=== PATIENT | female | born 1990 | race Caucasian/White ===

== ENCOUNTER 2016-10-26 17:56 | Outpatient (CLI) | payer MEDICAID ==
[2016-10-26 18:55] LABS: APPEARANCE,URINE SLIGHTLY-CLOUDY; BILIRUBIN,URINE NEGATIVE (NEGATIVE); GLUCOSE, URINE NEGATIVE (NEGATIVE); KETONES,URINE NEGATIVE (NEGATIVE); LEUKOCYTE ESTERASE,URINE SMALL (NEGATIVE); NITRITE,URINE NEGATIVE (NEGATIVE); PROTEIN,URINE NEGATIVE (NEGATIVE); URINE SPECIFIC GRAVITY 1.028; UROBILINOGEN,URINE NEGATIVE mg/dL (<2.0)
[2016-10-26] MEDS ORDERED: OXYCODONE-ACETAMINOPHEN 5-325 MG TABLET PO ONE (18:58)
[2016-10-26] MEDS ORDERED: OXYCODONE-ACETAMINOPHEN 5-325 MG TABLET ONE (19:00)
[2016-10-26 19:10] LABS: URINE BARBITURATES SCREEN NEGATIVE; URINE METHADONE SCREEN NEGATIVE; URINE PHENCYCLIDINE SCREEN NEGATIVE
--- NOTE | 2016-10-26 19:59 | Non Stress Test Report ---
Non Stress Test Datetime Report Generated by CPN: 10/26/2016 19:59 DEMOGRAPHIC Test Number: 1 EGA NST: 38.1 EGA NST: 36.1 INDICATION Indication for Study: Ordered by Provider Indication for Study: Other Indication for Study (NST) Other: lower abdominal pain, 36.1wk IUP VITAL SIGNS Temperature - NST: 97.8 Pulse - NST: 71 RESP - NST: 18 NBPSYS NST: 97 NBPDIA NST: 52 MONITORING Monitor Explained: Monitor Explained; Test Explained; Patient Verbalized Understanding Monitor Explained: Monitor Explained; Test Explained; Patient Verbalized Understanding Time on Monitor: 10/26/2016 18:20 Time on Monitor: 10/12/2016 10:50 Time off Monitor: 10/26/2016 19:40 Time off Monitor: 10/12/2016 11:20 NST Duration: 80 NST Duration: 30 NST INTERVENTIONS NST Interventions: PO Hydration NST Interventions: None Physician Notified NST: HULL Physician Notified NST: Christy Zavaleta CNM BABY A: [id number] BABY A Movement : Present Movement : Present Contraction Frequency : irritability Contraction Frequency : 7-10 minutes FHR Baseline : 120 FHR Baseline : 125 Accelerations : 15X15 Accelerations : 15X15 Decelerations : None Decelerations : None Variability : Moderate 6-25bpm Variability : Moderate 6-25bpm NST Review: Meets Criteria for Reactive NST NST Review: Meets Criteria for Reactive NST NST Review and Verified By : Geovany Horton RN NST Review and Verified By : Nicole Red RN NST Results: Reactive NST Results: Reactive NST REPORT Report Trigger: Send Report
--- NOTE | 2016-10-27 04:46 | Antepartum Discharge Summary ---
Antepartum DC Datetime Report Generated by CPN: 10/27/2016 04:45 DIET/ACTIVITY/RESTRICTIONS Diet: Regular (10/26/2016 19:40:Evie Errichiello, RN) Activity: Normal Activity (10/26/2016 19:40:Evie Errichiello, RN) TEACHING/INSTRUCTIONS/REFERRALS Instructions Given To: pt (10/26/2016 19:40:Evie Errichiello, RN) Instructions Understood: Patient Verbalized Understanding (10/26/2016 19:40:Evie Patel RN) Educational Materials- Other: The Labor Process, back pain (10/26/2016 19:40:Evie Patel RN) DISCHARGE INFORMATION Discharged AMA: No (10/26/2016 19:40:Evie Patel RN) Discharge Date/Time: 10/26/2016 19:50 (10/26/2016 19:40:Evie Patel RN) Discharged To: Home (10/26/2016 19:40:Evie Patel RN) Discharge Provider Name: Dr Rae (10/26/2016 19:40:Evie Patel RN) Accompanied By: n/a (10/26/2016 19:40:Evie Patel RN) Discharge Method: Ambulatory (10/26/2016 19:40:Evie Patel RN) Condition: Stable (10/26/2016 19:40:Evie Patel RN) FOLLOW UP INFORMATION Follow Up With: [facility] (10/26/2016 19:40:Evie Patel RN) Follow Up On: As Scheduled (10/26/2016 19:40:Evie Patel RN) Follow Up Phone Number: [facility] - (10/26/2016 19:40:Evie Patel RN) Comments: Pt came to LD as LC, pt experiencing back pain while on unit, Percocet PO given. Pain relieved as per pt. Discharge insturctions given for the labor process and back pain relief measures explained by this RN. Pt verbalized understanding and demonstrated understanding. Pt d/c off unit via ambulation in stable condition. (10/26/2016 19:40:Evie Patel RN)
--- NOTE | 2016-10-27 04:46 | L&D Flow Sheet ---
LD Flowsheet Datetime Report Generated by CPN: 10/27/2016 04:45 Datetime: 10/26/2016 19:45 Communication Communication: Call/Page Placed to Provider (Annotations: Call placed to Dr Are to confirm d/c order. Per MD, pt OK to go home if pain relieved by PO Percocet. Orders carried out. ) (Evie Errichiello, RN) Datetime: 10/26/2016 19:30 Vital Signs Stage of : Antepartum (Evie Errichiello, RN) Uterine Activity Monitor Mode: External (Evie Errichiello, RN) Frequency (min): n/a (Evie Catherineichiello, RN) Quality: Mild (Evie Errichiello, RN) Resting Tone (Palpate): Relaxed (Evie Errichiello, RN) Assessment A Monitor Mode: External US (Evie Patel RN) FHR Baseline Rate : 150 (Evie Patel RN) FHR Baseline Changes: No Baseline Change (Evie Patel, RN) Variability: Moderate 6-25 bpm (Evie Patel, RN) Accelerations: 15X15 (Evie Patel RN) Decelerations: None (Evie Patel RN) Pain Presence: None/Denies (Evie Patel, RN) Patient Care Patient Position/Activity: Left Tilt; Semi-Fowlers (Evie Patel, ECTOR) Communication Communication: RN at Bedside; RN Reviewed Strip (Evie Patel RN) LaborFlag: Antepartum (QS system process) Datetime: 10/26/2016 19:25 I/O Interventions: Up to BR (Evie Errichiello, RN) Datetime: 10/26/2016 19:08 I/O Interventions: Clear Liquids Given (Thierno Elysia, RN) Datetime: 10/26/2016 19:07 Communication Comments: Report to K Fore RN care relinquished at this time (Thierno Elysia, RN) Datetime: 10/26/2016 19:05 NBP Sys/Tasia/Mean (mmHg): 102 (QS system process) : 51 (QS system process) : 73 (QS system process) Pulse: 71 (QS system process) LaborFlag: Antepartum (QS system process) Datetime: 10/26/2016 19:03 Monitor Interventions for FHR: Ultrasound Adjusted (Thierno Elysia, RN) Medications Medication Comments: Percocet 2 tabs PO as ordered (Thierno Elysia, RN) Datetime: 10/26/2016 18:54 Communication Communication: Provider Orders Received (Thierno Naidu RN) Notification Reason: Status Update; Status; Labor Status; Membrane Status; Uterine Activity; Pain; Lab/Diagnostic Study (Thierno Naidu RN) Communication Comments: Dr Rae called and notifed of pt complaint, pain, vs, efm strip, reactive NST, uterine irritability with back pain, and Urine results. Orders to give pt 2 percocet now, monitor pt to see if pain gets relieved, then discharge patient home, and continue to PO hydrate. (Thierno Naidu RN) Datetime: 10/26/2016 18:28 Vaginal Bleeding: None (Thierno Quachfleet, RN) Montano's Score Dilatation (cm): 1-2 cm (Thierno Elysia, RN) Effacement: 0-30_ effaced (Thierno Elysia, RN) Station: minus 2 (Thierno Elysia, RN) Consistency: Firm (Thierno Elysia, RN) Position: Posterior (Thierno Elysia, RN) Total Montano's Score: 2 (QS system process) : 0-4 = Unfavorable cervix (QS system process) Maternal Assessment Level of Consciousness: Fully Conscious (Thierno Elysia, RN) DTR's/Clonus: DTRs 1+; No Clonus (Thierno Elysia, RN) Headache: Denies (Thierno Elysia, RN) Breath Sounds, Left: Clear and Equal (Thierno Elysia, RN) Breath Sounds, Right: Clear and Equal (Thierno Naidu RN) Nausea/Vomiting: Denies (Thierno Naidu RN) RUQ Epigastric Pain: Denies (Thierno Naidu RN) Patient Care Patient Position/Activity: Left Lateral (Thierno Naidu RN) Comfort Measures: Family Support (Thierno Naidu RN) Teaching Instructional Method: Demo; Verbal; Patient Instructed; Family/Support Person Instructed; Verbalized Understanding (Thierno Naidu RN) Plan of Care: Plan of Care Discussed (Thierno Naidu RN) Unit Routine: [place] to Room; Call [place]; Bed; Waiting Areas; Phone/Cell Phone Use; Unit Personnel; Handwashing; Flu/Illness Precautions; Monitoring; Safety/Fall Risk Prevention; Bathroom Privileges (Thierno Naidu RN) Labor/Induction: Labor Stages (Thierno Naidu RN) Pain Management: Pain Scale/Goals; Comfort Measures (Thierno Naidu RN) Related: Common Discomforts of ; Maternal Physical Changes; Maternal Emotional Changes; Nutrition; Hydration; Activity and Rest (Thierno Naidu RN) Datetime: 10/26/2016 18:26 Vaginal Exam Dilatation (cm): 1.0 (Thierno Naidu RN) Effacement (%): 20 (Thierno Naidu RN) Station: -2 (Thierno Naidu RN) Exam by: Ridge Naidu RN (Thierno Naidu RN) Vaginal Bleeding: None (Thierno Naidu RN) Cervix, Consistency: Firm (Thierno Naidu RN) Cervix, Position: Posterior (Thierno Naidu RN) Communication Communication: RN at Bedside; RN Reviewed Strip (Thierno Quachmanish RN) Datetime: 10/26/2016 18:23 Monitor Interventions for UA: [place] Adjusted (Thierno Naidu RN) I/O Interventions: Popsicle; Clear Liquids Given (Thierno Naidu RN) Patient Care Comments: Pt instructed to PO hydrate x1 pitcher of water now. (Thierno Naidu RN) Datetime: 10/26/2016 18:19 NBP Sys/Tasia/Mean (mmHg): 94 (QS system process) : 55 (QS system process) : 71 (QS system process) Pulse: 64 (QS system process) LaborFlag: Antepartum (QS system process) Datetime: 10/26/2016 18:17 Pain Pain Scale: 5 (Thierno Naidu RN) Pain Presence: Intermittent (Thierno Naidu RN) Pain Type: Ache (Thierno Naidu RN) Pain Location: Back (Thierno Naidu RN) Pain Relief Measures: Comfort Measures (Thierno Naidu RN) Pain Coping: Breathing Through Contractions (Thierno Naidu RN) Comfort Measures: Breathing/Relaxation; Family Support (Thierno Naidu RN) Communication Comments: Pt states she smoked SPIN[employer]ING [employer] PERSON. (Thierno Naidu RN) LaborFlag: Antepartum (QS system process)
--- NOTE | 2016-10-27 04:46 | L&D Current Admission ---
Current Admit Datetime Report Generated by CPN: 10/27/2016 04:45 ADMISSION INFORMATION Chief Complaint: Pt was seen at [facility] today; pt states her cervix was checked then her back pain started and has been intermittent all day today. (10/26/2016 18:28:Thierno Naidu RN) Chief Complaint: Uterine Cramping (10/12/2016 10:55:Yenny Rosenthal RN)
--- NOTE | 2016-10-27 04:46 | L&D Admission Assessment ---
LD ADM ASMT Datetime Report Generated by CPN: 10/27/2016 04:45 PATIENT ASSESSMENT Assessment Type: Admission Assessment (10/26/2016 18:28:Thierno Naidu, RN) WEIGHT Weight (lb): 196 (10/26/2016 18:43:QS system process) Weight (kg): 89.1 (10/26/2016 18:43:QS system process) Total Wt Gain (lb): -14 (10/26/2016 18:43:QS system process) Wt Gain (kg): -6.5 (10/26/2016 18:43:QS system process) BMI: 28.9 (10/26/2016 18:43:QS system process) PAIN Pain Scale: 5 (10/26/2016 18:17:Thierno Naidu RN) Pain Presence: None/Denies (10/26/2016 19:30:Evie Patel RN) Pain Presence: Intermittent (10/26/2016 18:17:Thierno Naidu RN) Pain Type: Ache (10/26/2016 18:17:Thierno Naidu RN) Pain Location: Back (10/26/2016 18:17:Thierno Naidu RN) CONTRACTIONS Frequency (min): n/a (10/26/2016 19:30:Evie Patel RN) Quality: Mild (10/26/2016 19:30:Evie Patel RN) Resting Tone [place]: Relaxed (10/26/2016 19:30:Evie Patel RN) VAGINAL EXAM Dilatation (cm): 1.0 (10/26/2016 18:26:Thierno Naidu RN) Effacement (%): 20 (10/26/2016 18:26:Thierno Naidu RN) Station: -2 (10/26/2016 18:26:Thierno Naidu RN) MORALES'S SCORE Morales's Score Dilatation (cm): 1-2 cm (10/26/2016 18:28:Thierno Naidu RN) Morales's Score Effacement (%): 0-30_ effaced (10/26/2016 18:28:Thierno Naidu RN) Morales's Score Station: minus 2 (10/26/2016 18:28:Thierno Naidu RN) Morales's Score Consistency: Firm (10/26/2016 18:28:Thierno Naidu RN) Morales's Score Position: Posterior (10/26/2016 18:28:Thierno Naidu RN) Total Morales's Score: 2 (10/26/2016 18:28:QS system process) Morales's Score Text: 0-4 = Unfavorable cervix (10/26/2016 18:28:QS system process) NEURO Level of Consciousness: Fully Conscious (10/26/2016 18:28:Thierno Elysia, RN) DTR's/Clonus: DTRs 1+; No Clonus (10/26/2016 18:28:Thierno Arcoseet, RN) Headache: Denies (10/26/2016 18:28:Thierno Elysia, RN) Dizziness: No (10/26/2016 18:28:Thierno Elysia, RN) Blurred Vision: No (10/26/2016 18:28:Thierno Elysia, RN) Extremity Numbness/Tingling : None (10/26/2016 18:28:Thierno Elysia, RN) Extremity Movement: Full Range of Motion (10/26/2016 18:28:Thierno Elysia, RN) CARDIOVASCULAR Heart Rhythm: Regular (10/26/2016 18:28:Thierno Elysia, RN) Nailbeds: [place] (10/26/2016 18:28:Thierno Naidu RN) Capillary Refill: Less than 3 Seconds (10/26/2016 18:28:Thierno Naidu RN) Lower Extremities Edema: None (10/26/2016 18:28:Thierno Naidu RN) Lower Extremities Edema Degree: None (10/26/2016 18:28:Thierno Naidu RN) Upper Extremities Edema: None (10/26/2016 18:28:Thierno Naidu RN) Upper Extremities Edema Degree: None (10/26/2016 18:28:Thierno Naidu RN) Facial Edema: None (10/26/2016 18:28:Thierno Naidu RN) Piero's Sign Left Leg: Negative (10/26/2016 18:28:Thierno Naidu RN) Piero's Sign Right Leg: Negative (10/26/2016 18:28:Thierno Naidu RN) DVT RISK ASSESSMENT DVT Risk Age: Age less than 41 years (10/26/2016 18:28:Thierno Naidu RN) DVT Risk BMI: BMI 31 to 40 (10/26/2016 18:28:Thierno Naidu RN) DVT Risk Surgery: None Applicable (10/26/2016 18:28:Thierno Naidu RN) DVT Risk Other: Women Only- or (<1 month) (10/26/2016 18:28:Thierno Naidu RN) DVT Risk Total: 2 (10/26/2016 18:28:QS system process) DVT Risk Text: Moderate Risk (10-20%) - Consider stockings, compresssion device, pharmacological therapy per hospital policy (10/26/2016 18:28:QS system process) RESPIRATORY Respiratory Effort: Unlabored; Regular Rhythm; Equal Expansion (10/26/2016 18:28:Thierno Naidu RN) Breath Sounds, Left: Clear and Equal (10/26/2016 18:28:Thierno Naidu RN) Breath Sounds, Right: Clear and Equal (10/26/2016 18:28:Thierno Naidu RN) Cough Productivity: None (10/26/2016 18:28:Thierno Naidu RN) GASTROINTESTINAL Nausea/Vomiting: Denies (10/26/2016 18:28:Thierno Naidu RN) Bowel Sounds: Normoactive (10/26/2016 18:28:Thierno Naidu RN) RUQ Epigastric Pain: Denies (10/26/2016 18:28:Thierno Naidu RN) Bowel Patterns: Soft, Formed Stool (10/26/2016 18:28:Thierno Naidu RN) Hemorrhoids: None (10/26/2016 18:28:Thierno Naidu RN) Diet Type: Regular diet (10/26/2016 18:28:Thierno Naidu RN) Last Meal: 10/26/2016 12:00 (10/26/2016 18:28:Thierno Naidu RN) GENITOURINARY Bladder: Nondistended (10/26/2016 18:28:Thierno Naidu RN) Frequency of Urination: No (10/26/2016 18:28:Thierno Niadu RN) Urination Burning: No (10/26/2016 18:28:Thierno Naidu RN) CVA Tenderness: No (10/26/2016 18:28:Thierno Naidu RN) Vaginal Bleeding: None (10/26/2016 18:28:Thierno Naidu RN) Vaginal Discharge Amount: None (10/26/2016 18:28:Thierno Naidu RN) Vaginal Discharge Color: N/A (10/26/2016 18:28:Thierno Naidu RN) Vaginal Discharge Odor: Non-Odorous (10/26/2016 18:28:Thierno Naidu RN) Vaginal Discharge Character: None (10/26/2016 18:28:Thierno Naidu RN) INTEGUMENTARY Skin Color: Normal for Race (10/26/2016 18:28:Thierno Naidu RN) Skin Temperature: Warm (10/26/2016 18:28:Thierno Naidu RN) Skin Moisture: Dry (10/26/2016 18:28:Thierno Naidu RN) MICHAEL SKIN ASSESSMENT Michael Scale Sensory Perception: No Impairment- Responds to verbal commands. Has no sensory deficit which would limit ability to feel or voice pain or discomfort (10/26/2016 18:28:Thierno Naidu RN) Michael Scale Moisture: Rarely Moist- Skin is usually dry. Linen only requires changing at routine intervals (10/26/2016 18:28:Thierno Naidu RN) Michael Scale Activity: Walks Frequently- Walks outside the room at least twice a day and inside room at least every 2 hours during the day. (10/26/2016 18:28:Thierno Naidu RN) Michael Scale Mobility: No Limitations- Makes major and frequent changes in position without assistance (10/26/2016 18:28:Thierno Naidu RN) Michael Scale Nutrition: Excellent- Eats most of every meal. Never refuses a meal. Usually eats a total of 4 or more servings of meat and dairy products. Occasionally eats between meals. Does not require supplementation (10/26/2016 18:28:Thierno Naidu RN) Michael Scale Friction and Shear: No Apparent Problem- Moves in bed and in chair independently and has sufficient muscle strength to lift up completely during move. Maintains good position in bed or chair at all times (10/26/2016 18:28:Thierno Naidu RN) Michael Scale Total: 23 (10/26/2016 18:28:QS system process) Michael Scale Risk: No Risk of Pressure Ulcer Noted at this Time (10/26/2016 18:28:QS system process) SUPPORT Family Support: Family supportive (10/26/2016 18:28:Thierno Naidu RN) Emotional State: Calm/Relaxed (10/26/2016 18:28:Thierno Naidu RN) SAFETY Call [place] Within Reach: Yes (10/26/2016 18:28:Thierno Naidu RN) Side Rails Up: Yes (10/26/2016 18:28:Thierno Naidu RN) Bed Wheels Locked: Yes (10/26/2016 18:28:Thierno Naidu RN) Arm Bands Present: Yes (10/26/2016 18:28:Thierno Naidu RN) Isolation: [place] (10/26/2016 18:28:Thierno Naidu RN) FALL SCREEN Fall Risk History of Falling: (0) No (10/26/2016 18:28:Thierno Naidu RN) Fall Risk Secondary Diagnosis: (0) No (10/26/2016 18:28:Thierno Naidu RN) Fall Risk Ambulatory Aid: (0) None/Bedrest/Wheelchair/Nurse Assist (10/26/2016 18:28:Thierno Naidu RN) Fall Risk IV Therapy: (0) No (10/26/2016 18:28:Thierno Naidu RN) Fall Risk Gait: (0) Normal/Bedrest/Immobile (10/26/2016 18:28:Thierno Naidu RN) Fall Risk Mental Status: (0) Oriented to Own Ability (10/26/2016 18:28:Thierno Naidu RN) Fall Risk Score: 0 (10/26/2016 18:28:QS system process) Fall Risk Score Definition: No Risk: No action required (10/26/2016 18:28:QS system process) RECENT TRAVEL/INFECTIOUS DISEASE Recent Exp Communicable Disease: No (10/26/2016 18:28:Thierno Naidu RN) Cough or Fever: No (10/26/2016 18:28:Thierno Naidu RN) Foreign Travel Past 10 Days: No (10/26/2016 18:28:Thierno Naidu RN) Open Wounds or Sores: No (10/26/2016 18:28:Thierno Naidu RN) Prior Antibiotic Resistance Tx: No (10/26/2016 18:28:Thierno Naidu RN) Cultures Obtained: Not Applicable (10/26/2016 18:28:Thierno Naidu RN) Isolation Initiated: No (10/26/2016 18:28:Thierno Naidu RN) Pt/Family Education: Handwashing Hygiene (10/26/2016 18:28:Thierno Naidu RN) BABY A FHR Baseline Rate (bpm) Baby A: 150 (10/26/2016 19:30:Evie Patel RN) Variability Baby A: Moderate 6-25 bpm (10/26/2016 19:30:Evie Patel RN) Accelerations Baby A: 15X15 (10/26/2016 19:30:Evie Patel RN) Decelerations Baby A: None (10/26/2016 19:30:Evie Errichiello, RN) ADDITIONAL COMMENTS Assessment Flag: Admission Assessment (10/26/2016 18:28:QS system process)
--- NOTE | 2016-10-27 04:46 | L&D General Admission ---
General Admit Datetime Report Generated by CPN: 10/27/2016 04:45 CARE Height (in): 69 (10/26/2016 18:43:QS system process) Height (in): 69 (10/12/2016 11:12:QS system process) ALLERGIES Medication Allergies: latex/MO/rash (10/26/2016) (10/26/2016 18:43:QS system process) Medication Allergies: latex/MO/rash (10/12/2016) (10/12/2016 11:12:QS system process) DEMOGRAPHICS Address: [address] [place] [address], [address] [place] [address] (10/12/2016 11:12:QS system process) Home (10/12/2016 11:12:QS system process) Marital Status: Legally (10/12/2016 11:12:QS system process) Rastafari: Cheondoism (10/12/2016 11:12:QS system process)
--- NOTE | 2016-10-27 04:46 | L&D Discharge Summary ---
OB Discharge Summary Datetime Report Generated by CPN: 10/27/2016 04:45 DISCHARGE DIAGNOSIS Diagnosis/Symptoms: False Labor; Back Pain Treatment/Procedures Other: PO hydration, Percocet 5/325 2 tab PO. Gestation: 38.1 Number of Babies in Womb: 1 Parity: 1 DIET/ACTIVITY/RESTRICTIONS Diet: Regular Activity: Normal Activity TEACHING/INSTRUCTIONS/REFERRALS Instructions Given To: pt Instructions Understood: Patient Verbalized Understanding Referrals: None Educational Materials- Other: The Labor Process, back pain DISCHARGE INFORMATION Discharged AMA: No Discharge Date/Time: 10/26/2016 19:50 Discharged To: Home Discharge Provider Name: Dr Rae Accompanied By: n/a Discharge Method: Ambulatory Condition: Stable FOLLOW UP INFORMATION Follow Up With: [facility] Follow Up On: As Scheduled Follow Up Phone Number: [facility] - Comments: Pt came to as LC, pt experiencing back pain while on unit, Percocet PO given. Pain relieved as per pt. Discharge insturctions given for the labor process and back pain relief measures explained by this RN. Pt verbalized understanding and demonstrated understanding. Pt d/c off unit via ambulation in stable condition.
== END 2016-10-26 19:50 | disposition home or self-care (01) ==
LOC: LC 17:56
PROVIDERS: ATTEND Obstetrics & Gynecology
PROC: 4A1HXCZ Monitoring of Products of Conception, Cardiac Rate, External Approach (ICD-10-PCS; principal; 2016-10-26)
DX: Z34.93 Encounter for supervision of normal pregnancy, unspecified, third trimester (principal); Z3A.38 38 weeks gestation of pregnancy
CPT/HCPCS: 59025; 80307; 81005

== ENCOUNTER 2016-11-13 11:35 | Inpatient (IN) | payer MEDICAID ==
--- NOTE | 2016-11-13 12:01 | L&D Flow Sheet ---
LD Flowsheet Datetime Report Generated by CPN: 11/13/2016 12:00 Datetime: 11/13/2016 11:58 Vital Signs NBP Sys/Tasia/Mean (mmHg): 98 (QS system process) : 53 (QS system process) : 72 (QS system process) Pulse: 77 (QS system process) Communication LaborFlag: Antepartum (QS system process) Datetime: 11/13/2016 11:55 Patient Care Patient Position/Activity: Left Tilt; Semi-Fowlers (Vicky Vitrano, RN) I/O Interventions: Clear Liquids Given (Vicky Vitrano, RN) Teaching Instructional Method: Verbal; Patient Instructed; Family/Support Person Instructed; Verbalized Understanding (Vicky Pratt RN) Plan of Care: Plan of Care Discussed (Vicky Pratt RN) Unit Routine: [place] to Room; Call [place]; Bed; Unit Personnel; Monitoring; Safety/Fall Risk Prevention; Bathroom Privileges (Vicky Pratt RN)
[2016-11-13 12:24] LABS: APPEARANCE,URINE SLIGHTLY-CLOUDY; BILIRUBIN,URINE NEGATIVE (NEGATIVE); GLUCOSE, URINE NEGATIVE (NEGATIVE); KETONES,URINE NEGATIVE (NEGATIVE); LEUKOCYTE ESTERASE,URINE TRACE (NEGATIVE); NITRITE,URINE NEGATIVE (NEGATIVE); PROTEIN,URINE NEGATIVE (NEGATIVE); URINE SPECIFIC GRAVITY 1.018; UROBILINOGEN,URINE NEGATIVE mg/dL (<2.0)
[2016-11-13 12:26] LABS: AMNISURE (ROM) POSITIVE (NEGATIVE)
[2016-11-13 12:41] LABS: URINE BARBITURATES SCREEN NEGATIVE; URINE METHADONE SCREEN NEGATIVE; URINE OPIATES LOW NEGATIVE; URINE PHENCYCLIDINE SCREEN NEGATIVE
[2016-11-13 13:11] LABS: ABSOLUTE EOSINOPHILS # (AUTO) 0.1 10^3/uL (0.0-0.6); ABSOLUTE LYMPHOCYTES (AUTO) 2.2 10^3/uL (0.5-4.7); ABSOLUTE NEUT (AUTO) 11.3 10^3/uL (1.7-8.2); BASOPHILS % (AUTO) 0.3 % (0-2); EOSINOPHILS % (AUTO) 0.5 % (0-6); HEMOGLOBIN 11.3 g/dL (12.0-15.5); HGB HCT DIFFERENCE 0.9; MEAN CORPUSCULAR HEMOGLOBIN 31.9 pg (27.0-33.4); MEAN CORPUSCULAR HGB CONC 34.1 g/dL (32.0-36.0); MEAN CORPUSCULAR VOLUME 93 fl (80-97); MONOCYTES % (AUTO) 6.9 % (3-13); RED BLOOD COUNT 3.53 10^6/uL (3.72-5.28); RED CELL DISTRIBUTION WIDTH 13.1 % (11.5-14.0); SEGMENTED NEUTROPHILS % (AUTO) 77.3 % (42-78); WHITE BLOOD COUNT 14.6 10^3/uL (4.0-10.5)
--- NOTE | 2016-11-13 14:00 | L&D Flow Sheet ---
LD Flowsheet Datetime Report Generated by CPN: 11/13/2016 14:00 Datetime: 11/13/2016 13:58 NBP Sys/Tasia/Mean (mmHg): 129 (QS system process) : 58 (QS system process) : 83 (QS system process) Pulse: 60 (QS system process) LaborFlag: Antepartum (QS system process) Datetime: 11/13/2016 13:57 Monitor Interventions for FHR: Ultrasound Adjusted (Vicky Vitrano, ECTOR) Provider Reviewed Strip: Yes (Vicky Vitrano, RN) Communication: RN at Bedside; RN Reviewed Strip; Provider at Bedside (Vicky Vitrano, RN) Datetime: 11/13/2016 13:49 I/O Interventions: Up to BR (Vicky Vitrano, RN) Datetime: 11/13/2016 13:27 NBP Sys/Tasia/Mean (mmHg): 98 (QS system process) : 62 (QS system process) : 75 (QS system process) Pulse: 52 (QS system process) LaborFlag: Antepartum (QS system process) Datetime: 11/13/2016 13:04 IV/Blood Work: IV Bolus Given ml @ 300; IV Infusing per Order (Vicky Terence, RN) Patient Care Comments: 125 mL/hour (Vicky Vitrano, RN) Datetime: 11/13/2016 13:02 NBP Sys/Tasia/Mean (mmHg): 107 (QS system process) : 59 (QS system process) : 77 (QS system process) Pulse: 54 (QS system process) Respirations: 16 (Vicky Vitrano, RN) LaborFlag: Antepartum (QS system process) Datetime: 11/13/2016 13:00 Patient Care Comments: Consents reviewed and signed (Vicky Pratt, RN) Patient Care Comments: Labs drawn (Vicky Vitrano, RN) Datetime: 11/13/2016 12:53 IV/Blood Work: IV Started; IV Bolus Started; IV Infusing per Order; IV Bag Number @ 1 (Vicky Pratt RN) Patient Care Comments: 18 G R forearm site WNL LR infusing per order (Vicky Pratt RN) Datetime: 11/13/2016 12:41 I/O Interventions: Up to BR (Vicky Pratt RN) Datetime: 11/13/2016 12:40 Communication Comments: Call to Enmanuel Zarate CNM. Reviewed pt history, EGA 40.5, , pt complaints, nursing assessment, SVE, toco tracing, FHTs, VS, positive Amnisure. Orders to admit pt for SROM. (Vicky Pratt RN) Datetime: 11/13/2016 12:27 NBP Sys/Tasia/Mean (mmHg): 100 (QS system process) : 64 (QS system process) : 75 (QS system process) Pulse: 67 (QS system process) Respirations: 16 (Vicky Vitrano, RN) LaborFlag: Antepartum (QS system process) Datetime: 11/13/2016 12:12 Monitor Interventions for UA: [place] Adjusted (Vicky Vitrano, RN) Datetime: 11/13/2016 12:03 Dilatation (cm): 3.5 (Vicky Pratt RN) Effacement (%): 50 (Vicky Pratt RN) Station: -2 (Vicky Pratt RN) Exam by: Nicole Pratt RN (Vicky Pratt RN) Vaginal Bleeding: None (Vicky Pratt RN) Cervix, Consistency: Soft (Vicky Pratt RN) Cervix, Position: Posterior (Vicky Pratt RN) Datetime: 11/13/2016 12:00 Pain Scale: 3 (Vicky Pratt RN) Pain Presence: Intermittent (Vicky Pratt RN) Pain Type: Ache (Vicky Pratt RN) Pain Location: Back (Vicky Pratt RN) Pain Relief Measures: Comfort Measures (Vicky Pratt RN) Pain Coping: Talking Through Contractions (Vicky Pratt RN) Vaginal Bleeding: Scant (Annotations: Reports scant bleeding since SVE at [facility] appointment yesterday 11/12/16.) (Vicky Pratt RN) Level of Consciousness: Fully Conscious (Vicky Pratt RN) DTR's/Clonus: DTRs 1+; No Clonus (Vicky Pratt RN) Headache: Denies (Vicky Pratt RN) Breath Sounds, Left: Clear and Equal (Vicky Pratt RN) Breath Sounds, Right: Clear and Equal (Vicky Pratt RN) Nausea/Vomiting: Denies (Vicky Pratt RN) RUQ Epigastric Pain: Denies (Vicky Pratt RN) LaborFlag: Antepartum (QS system process)
[2016-11-13] MEDS ORDERED: OXYTOCIN/NORMAL SALINE 20 UNIT/1,000 ML RTUINJ ONE (14:08)
[2016-11-13] MEDS ORDERED: RINGERS SOLUTION,LACTATED 1,000 ML IV PRN (14:09)
[2016-11-13] MEDS ORDERED: RINGERS SOLUTION,LACTATED 300 ML IV ONE (14:09)
[2016-11-13] MEDS ORDERED: FENTANYL/BUPIVACAINE/NS/PF 200 MCG/100 ML RTUINJ EPI ONE (14:41)
[2016-11-13] MEDS ORDERED: EPHEDRINE SULFATE INJ 50 MG/1 ML AMPULE ONE (14:41)
[2016-11-13] MEDS ORDERED: BUPIVACAINE HCL 0.25 % INJ/PF (2.5 MG/1 ML) 30 ML VIAL ONE (14:42)
[2016-11-13] MEDS ORDERED: MISOPROSTOL 0.2 MG TABLET ONE (15:39)
[2016-11-13] MEDS ORDERED: LIDOCAINE 1% INJ-PF (10 MG/ML) 30 ML SDV ONE (15:39)
--- NOTE | 2016-11-13 16:01 | L&D Flow Sheet ---
LD Flowsheet Datetime Report Generated by CPN: 11/13/2016 16:00 Datetime: 11/13/2016 15:45 Pushing: Coached on Pushing (Vicky Vitrano, RN) Pushing Position: Pushing with Contractions (Vicky Vitrano, RN) Datetime: 11/13/2016 15:42 Preparation for Delivery: Setup for Delivery (Vicky Vitrano, RN) Communication Comments: epidural turned off per A. Emmel CNM (Vicky Vitrano, RN) Datetime: 11/13/2016 15:40 NBP Sys/Tasia/Mean (mmHg): 103 (QS system process) : 60 (QS system process) : 77 (QS system process) Pulse: 73 (QS system process) I/O Interventions: Dumont Discontinued (Vicky Pratt RN) LaborFlag: Antepartum (QS system process) Datetime: 11/13/2016 15:37 Dilatation (cm): 10.0 (Vicky Pratt RN) Effacement (%): 100 (Vicky Pratt, RN) Station: 2 (Vicky Pratt, RN) Exam by: Enmanuel Zarate CNM (Vicky Pratt, RN) IV/Blood Work: IV Infusing per Order (Vicky Pratt RN) Patient Care Comments: 125 mL/hour (Vicky Pratt, RN) Communication Comments: Enmanuel Zarate CNM at bedside (Vicky Pratt RN) Datetime: 11/13/2016 15:36 Provider Reviewed Strip: Yes (Vicky Vitrano, RN) Communication: RN at Bedside; RN Reviewed Strip; Provider at Bedside (Vicky Vitrano, RN) Datetime: 11/13/2016 15:34 NBP Sys/Tasia/Mean (mmHg): 98 (QS system process) : 53 (QS system process) : 70 (QS system process) Pulse: 56 (QS system process) LaborFlag: Antepartum (QS system process) Datetime: 11/13/2016 15:30 Monitor Mode: External (Vicky Vitrano, RN) Frequency (min): 2-3 (Vicky Vitrano, RN) Quality: Moderate to Strong (Vicky Vitrano, RN) Duration (sec): 60-90 (Vicky Vitrano, RN) Duration Criteria: Less than Two 120 Second Contractions (Vicky Vitrano, RN) Pattern: Normal: <= 5 Contractions in 10 Minutes (Vicky Vitrano, RN) Resting Tone (Palpate): Relaxed (Vicky Vitrano, RN) Monitor Mode: External US (Vicky Vitrano, RN) FHR Baseline Rate : 115 (Vicky Vitrano, RN) Variability: Moderate 6-25 bpm (Vicky Vitrano, RN) Accelerations: 15X15 (Vicky Vitrano, RN) Decelerations: None (Vicky Vitrano, RN) Pitocin (milliunit): Pitocin Remains (milliunits) @ 4 (Vicky Vitrano, RN) Datetime: 11/13/2016 15:29 NBP Sys/Tasia/Mean (mmHg): 102 (QS system process) : 57 (QS system process) : 73 (QS system process) Pulse: 58 (QS system process) LaborFlag: Antepartum (QS system process) Datetime: 11/13/2016 15:24 NBP Sys/Tasia/Mean (mmHg): 93 (QS system process) : 51 (QS system process) : 69 (QS system process) Pulse: 62 (QS system process) Pitocin (milliunit): Pitocin Increased to (milliunits) @ 4 (Vicky Vitrano, RN) LaborFlag: Antepartum (QS system process) Datetime: 11/13/2016 15:23 Monitor Interventions for UA: Weiser Adjusted (Vicky Vitrano, RN) Datetime: 11/13/2016 15:18 NBP Sys/Tasia/Mean (mmHg): 90 (QS system process) : 55 (QS system process) : 71 (QS system process) Pulse: 69 (QS system process) Pain Presence: None/Denies (Vicky Vitrano, RN) Pain Type: N/A (Vicky Vitrano, RN) LaborFlag: Antepartum (QS system process) Datetime: 11/13/2016 15:17 NBP Sys/Tasia/Mean (mmHg): 92 (QS system process) : 54 (QS system process) : 68 (QS system process) Pulse: 67 (QS system process) LaborFlag: Antepartum (QS system process) Datetime: 11/13/2016 15:16 NBP Sys/Tasia/Mean (mmHg): 93 (QS system process) : 51 (QS system process) : 68 (QS system process) Pulse: 59 (QS system process) LaborFlag: Antepartum (QS system process) Datetime: 11/13/2016 15:15 NBP Sys/Tasia/Mean (mmHg): 99 (QS system process) : 58 (QS system process) : 75 (QS system process) Pulse: 63 (QS system process) Monitor Mode: External (Vicky Vitrano, RN) Frequency (min): 3-4 (Vicky Vitrano, RN) Quality: Moderate to Strong (Vicky Vitrano, RN) Duration (sec): 50-80 (Vicky Vitrano, RN) Duration Criteria: Less than Two 120 Second Contractions (Vicky Vitrano, RN) Pattern: Normal: <= 5 Contractions in 10 Minutes (Vicky Vitrano, RN) Resting Tone (Palpate): Relaxed (Vicky Vitrano, RN) Monitor Mode: External US (Vicky Vitrano, RN) Monitor Interventions for FHR: Ultrasound Adjusted (Vicky Vitrano, RN) FHR Baseline Rate : 115 (Vicky Vitrano, RN) Variability: Moderate 6-25 bpm (Vicky Vitrano, RN) Accelerations: 15X15 (Vicky Vitrano, RN) Decelerations: None (Vicky Vitrano, RN) Pitocin (milliunit): Pitocin Remains (milliunits) @ (Annotations: 2) (Vicky Vitrano, RN) LaborFlag: Antepartum (QS system process) Datetime: 11/13/2016 15:14 NBP Sys/Tasia/Mean (mmHg): 93 (QS system process) : 52 (QS system process) : 68 (QS system process) Pulse: 52 (QS system process) LaborFlag: Antepartum (QS system process) Datetime: 11/13/2016 15:13 NBP Sys/Tasia/Mean (mmHg): 93 (QS system process) : 54 (QS system process) : 70 (QS system process) Pulse: 56 (QS system process) I/O Interventions: Dumont Cath Inserted (Vicky Vitrano, RN) LaborFlag: Antepartum (QS system process) Datetime: 11/13/2016 15:12 NBP Sys/Tasia/Mean (mmHg): 91 (QS system process) : 51 (QS system process) : 69 (QS system process) Pulse: 52 (QS system process) LaborFlag: Antepartum (QS system process) Datetime: 11/13/2016 15:11 NBP Sys/Tasia/Mean (mmHg): 95 (QS system process) : 53 (QS system process) : 69 (QS system process) Pulse: 61 (QS system process) LaborFlag: Antepartum (QS system process) Datetime: 11/13/2016 15:10 NBP Sys/Tasia/Mean (mmHg): 94 (QS system process) : 50 (QS system process) : 66 (QS system process) Pulse: 59 (QS system process) LaborFlag: Antepartum (QS system process) Datetime: 11/13/2016 15:09 NBP Sys/Tasia/Mean (mmHg): 96 (QS system process) : 52 (QS system process) : 69 (QS system process) Pulse: 57 (QS system process) LaborFlag: Antepartum (QS system process) Datetime: 11/13/2016 15:08 NBP Sys/Tasia/Mean (mmHg): 97 (QS system process) : 55 (QS system process) : 70 (QS system process) Pulse: 56 (QS system process) LaborFlag: Antepartum (QS system process) Datetime: 11/13/2016 15:07 NBP Sys/Tasia/Mean (mmHg): 93 (QS system process) : 51 (QS system process) : 66 (QS system process) Pulse: 57 (QS system process) Monitor Interventions for UA: Weiser Adjusted (Vicky ECTOR Pratt) Anesthesia Plans: Epidural (Vicky Terence RN) Epidural Procedure Other: Pump Started (Vicky Vitrano, RN) LaborFlag: Antepartum (QS system process) Datetime: 11/13/2016 15:06 NBP Sys/Tasia/Mean (mmHg): 91 (QS system process) : 52 (QS system process) : 69 (QS system process) Pulse: 56 (QS system process) LaborFlag: Antepartum (QS system process) Datetime: 11/13/2016 15:05 NBP Sys/Tasia/Mean (mmHg): 95 (QS system process) : 65 (QS system process) : 77 (QS system process) Pulse: 88 (QS system process) LaborFlag: Antepartum (QS system process) Datetime: 11/13/2016 15:04 NBP Sys/Tasia/Mean (mmHg): 98 (QS system process) : 54 (QS system process) : 67 (QS system process) Pulse: 65 (QS system process) Monitor Interventions for UA: Weiser Adjusted (Vicky Pratt RN) Monitor Interventions for FHR: Ultrasound Adjusted (Vicky Pratt RN) Patient Position/Activity: Left Tilt; Low Fowlers (Vicky Vitrano, RN) LaborFlag: Antepartum (QS system process) Datetime: 11/13/2016 15:03 NBP Sys/Tasia/Mean (mmHg): 104 (QS system process) : 59 (QS system process) : 73 (QS system process) Pulse: 144 (QS system process) LaborFlag: Antepartum (QS system process) Datetime: 11/13/2016 15:01 NBP Sys/Tasia/Mean (mmHg): 99 (QS system process) : 60 (QS system process) : 74 (QS system process) Pulse: 73 (QS system process) Epidural Procedure: Loading Dose (Vicky Vitrano, RN) LaborFlag: Antepartum (QS system process) Datetime: 11/13/2016 15:00 NBP Sys/Tasia/Mean (mmHg): 100 (QS system process) NBP Sys/Tasia/Mean (mmHg): 97 (QS system process) : 59 (QS system process) : 54 (QS system process) : 74 (QS system process) : 73 (QS system process) Pulse: 65 (QS system process) Pulse: 63 (QS system process) Pulse: 64 (QS system process) SpO2 (%): 99 (QS system process) Monitor Mode: External (Vicky Vitrano, RN) Frequency (min): 2-6 (Vicky Vitrano, RN) Quality: Moderate to Strong (Vicky Vitrano, RN) Duration (sec): 50-70 (Vicky Vitrano, RN) Duration Criteria: Less than Two 120 Second Contractions (Vicky Vitrano, RN) Pattern: Normal: <= 5 Contractions in 10 Minutes (Vicky Vitrano, RN) Resting Tone (Palpate): Relaxed (Vicky Vitrano, RN) Monitor Mode: External US (Vicky Vitrano, RN) FHR Baseline Rate : 115 (Vicky Vitrano, RN) Variability: Moderate 6-25 bpm (Vicky Vitrano, RN) Accelerations: 15X15 (Vicky Vitrano, RN) Decelerations: None (Vicky Vitrano, RN) Pitocin (milliunit): Pitocin Remains (milliunits) @ 2 (Vicky Vitrano, RN) LaborFlag: Antepartum (QS system process) Datetime: 11/13/2016 14:59 Anesthesia Plans: Epidural (Vicky Vitrano, RN) Epidural Procedure: Cath Placed (Vicky Vitrano, RN) Epidural Procedure: Test Dose (Vicky Vitrano, RN) Datetime: 11/13/2016 14:55 Pulse: 64 (QS system process) SpO2 (%): 100 (QS system process) LaborFlag: Antepartum (QS system process) Datetime: 11/13/2016 14:54 Comments: Broken tracing while pt sitting up for epidural; RN remains at bedside adjusting US throughout procedure. (Vicky Vitrano, RN) Datetime: 11/13/2016 14:50 Pulse: 86 (QS system process) SpO2 (%): 100 (QS system process) LaborFlag: Antepartum (QS system process) Datetime: 11/13/2016 14:49 IV/Blood Work: New IV Bag Hung; IV Bag Number @ 2 (Vicky Pratt RN) Datetime: 11/13/2016 14:48 Procedure Verify: Correct Patient Identity; Correct Side and Site are Marked; Accurate Procedure Consent Form; Agreement on Procedure to be Done; Correct Patient Position; Relevant Images and Results are Properly Labeled and Displayed; Addressed Need to Administer Antibiotics or Fluids for Irrigation; Safety Precautions Based on Patient History or Medication Use (Vicky Pratt RN) Anesthesia Plans: Epidural (Vicky Pratt RN) Epidural Positioning: Sitting (Vicky Pratt RN) Anesthesia Comments: Dr. García at bedside (Vicky Vitrano, RN) Datetime: 11/13/2016 14:46 Procedure Verify: Correct Patient Identity; Correct Side and Site are Marked; Accurate Procedure Consent Form; Agreement on Procedure to be Done; Relevant Images and Results are Properly Labeled and Displayed; Addressed Need to Administer Antibiotics or Fluids for Irrigation; Safety Precautions Based on Patient History or Medication Use (Vicky Vitrano, RN) Anesthesia Plans: Epidural (Vicky Vitrano, RN) Anesthesia Comments: Dr. García called for epidural (Vicky Vitrano, RN) Datetime: 11/13/2016 14:45 Monitor Mode: External; Palpation (Vicky Vitrano, RN) Frequency (min): 2-5 (Vicky Vitrano, RN) Quality: Moderate to Strong (Vicky Vitrano, RN) Duration (sec): 60-80 (Vicky Vitrano, RN) Duration Criteria: Less than Two 120 Second Contractions (Vicky Vitrano, RN) Pattern: Normal: <= 5 Contractions in 10 Minutes (Vicky Vitrano, RN) Resting Tone (Palpate): Relaxed (Vicky Vitrano, RN) Pitocin (milliunit): Pitocin Remains (milliunits) @ 2 (Vicky Vitrano, RN) Datetime: 11/13/2016 14:43 Monitor Interventions for FHR: Ultrasound Adjusted (Vicky Vitrano, RN) Datetime: 11/13/2016 14:42 Comfort Measures: Breathing/Relaxation; Coaching (Vicky Vitrano, RN) Datetime: 11/13/2016 14:39 Communication Comments: May have epidural PRN per A. Emmel, CNM (Vicky Vitrano, RN) Datetime: 11/13/2016 14:37 Pain Coping: Requesting Pain Medication or Epidural; Crying (Vicky Pratt RN) IV/Blood Work: IV Bolus Started (Vicky Pratt RN) Procedure Verify: Correct Patient Identity; Correct Side and Site are Marked; Accurate Procedure Consent Form; Agreement on Procedure to be Done; Relevant Images and Results are Properly Labeled and Displayed; Addressed Need to Administer Antibiotics or Fluids for Irrigation; Safety Precautions Based on Patient History or Medication Use (Vicky Pratt RN) Anesthesia Plans: Epidural (Vicky Terence, RN) Datetime: 11/13/2016 14:34 Patient Position/Activity: Left Lateral (Vicky Rosauraano, RN) Datetime: 11/13/2016 14:32 Patient Position/Activity: Left Lateral; Peanut Ball (Vicky Vitrano, RN) I/O Interventions: Clear Liquids Given (Vicky Vitrano, RN) Datetime: 11/13/2016 14:30 Monitor Mode: Internal Scalp Electrode (Vicky Vitrano, RN) FHR Baseline Rate : 120 (Vicky Vitrano, RN) Variability: Moderate 6-25 bpm (Vicky Vitrano, RN) Accelerations: 15X15 (Vicky Vitrano, RN) Decelerations: None (Vicky Vitrano, RN) Pitocin (milliunit): Pitocin Remains (milliunits) @ 2 (Vicky Vitrano, RN) Datetime: 11/13/2016 14:23 Monitor Interventions for UA: Weiser Adjusted (Vicky Vitrano, RN) Datetime: 11/13/2016 14:19 Monitor Interventions for UA: Weiser Adjusted (Vicky Vitrano, RN) Monitor Interventions for FHR: Ultrasound Adjusted (Vicky Vitrano, RN) Datetime: 11/13/2016 14:18 Pitocin (milliunit): Pitocin Started (milliunits) @ 2; Pitocin 20 Units in 1000ml NS (Vicky Vitrano, RN) Datetime: 11/13/2016 14:15 Monitor Mode: External; Palpation (Vicky Vitrano, RN) Frequency (min): 4-5 (Vicky Vitrano, RN) Quality: Moderate (Vicky Vitrano, RN) Duration (sec): 60-70 (Vicky Vitrano, RN) Duration Criteria: Less than Two 120 Second Contractions (Vicky Vitrano, RN) Pattern: Normal: <= 5 Contractions in 10 Minutes (Vicky Vitrano, RN) Resting Tone (Palpate): Relaxed (Vicky Vitrano, RN) Hygiene: Underpad Changed; Linens Changed (Vicky Vitrano, RN) Patient Care Comments: Up to birthing ball (Vicky Vitrano, RN) Datetime: 11/13/2016 14:03 Patient Position/Activity: Left Tilt; High Fowlers (Vicky Vitrano, RN) Hygiene: Underpad Changed (Vicky Vitrano, RN) Datetime: 11/13/2016 14:02 Dilatation (cm): 4.0 (Vicky Vitrano, RN) Effacement (%): 70 (Vicky Vitrano, RN) Station: -2 (Vicky Vitrano, RN) Exam by: Enmanuel Zarate CNM (Vicky Pratt, RN) Membrane Status: Ruptured (Vickyanaid Pratt, RN) Membranes Rupture Method: Spontaneous (Vickyanaid Pratt, RN) Amniotic Fluid Color: Clear (Vickyanaid Pratt, RN) Amniotic Fluid Amount: Moderate (Vicky Rosauraano, RN) Membrane Comments: Forebag ruptured (Vicky Terence, RN) Datetime: 11/13/2016 14:00 Temperature (F): 98.0 (Vicky Pratt, RN) Temperature (C): 36.7 (QS system process) Temperature Route: Oral (Vicky Pratt, RN) Monitor Mode: External US (Vicky Pratt, RN) FHR Baseline Rate : 120 (Vicky Terence, RN) Variability: Moderate 6-25 bpm (Vicky Vitrano, RN) Accelerations: 15X15 (Vicky Rosauraano, RN) Decelerations: None (Vicky Terence, RN) Communication Comments: Enmanuel Zarate CNM completing speculum exam d/t pt reported history of herpes. No lesions noted. (Vicky Pratt RN) LaborFlag: Antepartum (QS system process)
[2016-11-13] MEDS: OXYTOCIN/NORMAL SALINE 1,000 ML IV PRN ×2 (16:34→18:19)
--- NOTE | 2016-11-13 17:53 | Delivery Summary ---
Del Sum A-C Datetime Report Generated by CPN: 11/13/2016 17:53 ADMISSION DATA Chief Complaint: Uterine Contractions; Suspected Ruptured Membranes Indication for Induction: Not Applicable Admission Impression: Term, Intrauterine Admit Provider Comments: 25 yo presents with SROM EDc 11/08/16 EGA 40+5 elevated dopplers wnl 2.1 09/19/16 abdomen nontender FHTs 120s average variability cat 1 cervix AROM clear start pitocin plan of care reviewed with pt DELIVERY PERSONNEL Delivery Doctor:: Ailsa Emmel, CNM Labor and Delivery Nurse:: Vicky Pratt RNbaffle mounter Nurse:: Orin Bryant RN Student Observers:: Norbert Zavaleta [facility] student nurse Ab Mcnamara [employer] [facility] student nurse Joint Cutter/CLOTH LAMINATING SUPERVISOR: Casi Guardado CNA II Additional Personnel: : Mary Burnett RN MATERNAL INFORMATION Delivery Anesthesia: Epidural Medications After Delivery: Pitocin Bolus-Please Comment; Pitocin Drip 20 Units/1000ml NSS Estimated Blood Loss (ml): 300 Maternal Complications: None Provider Comments: delivery of viable female bulb suctioned on perineum tactile stimulation elicits spont cry cord blood clamped, cut by student 3vc no lacerations placenta intact- dai fashion ebl 300cc placenta to pathology hemostasis achieved LABOR SUMMARY EDC: 11/08/2016 00:00 No. Babies in Womb: 1 Attempted: No Labor Anesthesia: Epidural LABOR INFORMATION Reason for Induction: Not Applicable Onset of Labor: 11/13/2016 06:50 Complete Dilatation: 11/13/2016 15:37 Oxytocin: Augmentation Group B Beta Strep: negative Antibiotics # of Doses: 0 Steroids Given: None Reason Steroids Not Administered: Not Applicable MEMBRANES Membranes Rupture Method: Spontaneous Rupture of Membranes: 11/13/2016 06:50 Length of Rupture (hr): 9.03 Amniotic Fluid Color: Clear Amniotic Fluid Amount: Moderate Amniotic Fluid Odor: Normal STAGES OF LABOR Stage 1 hr: 8 Stage 1 min: 47 Stage 2 hr: 0 Stage 2 min: 15 Stage 3 hr: 0 Stage 3 min: 7 Total Time in Labor hr: 9 Total Time in Labor min: 9 VAGINAL DELIVERY Episiotomy: None Laceration Extension: N/A Laceration Type: None Laceration Repair: Not Applicable Sponge Count Correct: N/A Sharps Count Correct: N/A CSECTION DELIVERY Primary Indication: N/A Secondary Indication: N/A CSection Incidence: N/A Labor: N/A Elective: N/A CSection Incision: N/A BABY A INFORMATION Delivery Date/Time: 11/13/2016 15:52 Method of Delivery: Vaginal Born in Route : No : N/A Forceps: N/A Vacuum Extraction: N/A Shoulder Dystocia : No PRESENTATION/POSITION BABY A Presentation: Cephalic Cephalic Presentation: Vertex Vertex Position: Right Occipital Anterior Breech Presentation: N/A PLACENTA INFORMATION BABY A Placenta Delivery Time : 11/13/2016 15:59 Placenta Method of Delivery: Spontaneous Placenta Status: Delivered SCORES BABY A Heart Rate 1 min: >100 bpm Resp Effort 1 min: Good Cry Reflex Irritability 1 min: Cough or Sneeze or Pulls Away Muscle Tone 1 min: Active Motion Color 1 min: Body [place], Extremities Blue Resuscitation Effort 1 min: Tactile Stimulation SCORE 1 MIN: 9 Heart Rate 5 min: >100 bpm Resp Effort 5 min: Good Cry Reflex Irritability 5 min: Cough or Sneeze or Pulls Away Muscle Tone 5 min: Active Motion Color 5 min: Body [place], Extremities Blue Resuscitation Effort 5 min: N/A SCORE 5 MIN: 9 INFORMATION BABY A Gestational Age at Delivery: 40.5 Gestational Status: Full Term- 39- 40.6 Weeks Infant Outcome : Liveborn Condition : Stable Infant Sex: Female IDENTIFICATION BABY A Verification Date/Time: 11/13/2016 16:04 ID Band Number: [id number] Mother's Name Verified: Yes RN Verifying : Ab Meier RN/Ab Bryant RN WEIGHT/LENGTH BABY A Birthweight (gm): 2975 Infant Weight (lb): 6 Weight (oz): 9 Length (in): 19.75 Length (cm): 50.17 CORD INFORMATION BABY A No. Cord Vessels: 3 Nuchal Cord : N/A Cord Blood Taken: Yes-For Storage (Mom's Blood type +) Suction: Mouth; Nose ASSESSMENT BABY A Complications: None Physical Findings at Delivery: Within Normal Limits Infant Respirations: Appears Normal Skin to Skin: Yes Skin to Skin Time (min): 70 Business Analyst Manager/ALS Called : No Care By: Ab FRAZIER Transferred To: Remains with Mother BABY B INFORMATION : N/A SIGNATURES Assignment: Violeta Amaro MD Signature: with User ID: Mary Alice : with User ID: Mary Alice
[2016-11-13] MEDS ORDERED: MEASLES,MUMPS&RUBELLA VACC/PF 0.5 ML VIAL SUBCUT PRN (17:57)
[2016-11-13] MEDS ORDERED: DIPH/PERTUSS(ACELL)/TETANUS VAC/PF 0.5 ML SYR (>=10YO) IM PRN (17:57)
[2016-11-13] MEDS ORDERED: ZOLPIDEM TARTRATE 5 MG TABLET PO PRN (17:57)
[2016-11-13] MEDS ORDERED: BENZOCAINE/MENTHOL AEROSOL SPRAY 56 ML TOP PRN (17:57)
[2016-11-13] MEDS ORDERED: DIBUCAINE 1% OINTMENT 28 GM TP PRN (17:57)
--- NOTE | 2016-11-13 18:14 | Admission Physical ---
Datetime Report Generated by CPN: 11/13/2016 18:14 CURRENT ADMISSION Chief Complaint: Uterine Contractions; Suspected Ruptured Membranes Indication for Induction: Not Applicable Admit Plan: Admit to Unit; Initiate Labor Augmentation Protocol ALLERGIES Medication Allergies: No Medication Allergies: latex/MO/rash (11/13/2016) Latex: Latex Allergies Food Allergies: NKFA Environmental Allergies: none OBSTETRICAL HISTORY EDC: 11/08/2016 00:00 : 2 Para: 1 Term: 1 : 0 SAB: 0 IAB: 0 Ectopic: 0 Livin Cesareans: 0 VBACs: 0 Multiple Births: 0 Gestational Diabetes: No Rh Sensitization: No Incompetent Cervix: No TERESA: No Infertility: No ART Treatment: No Uterine Anomaly: No IUGR: No Hx Previous C/S: No Macrosomia: No Hx Loss/Stillborn: No PIH: No Hx : No Placenta Previa/Abruption: Yes Depression/PP Depression: Yes PTL/PROM: No Post Hemorrhage: No Current Procedures: Ultrasound; NST Obstetrical History Comments: G1: 04/2011 6lb 10oz baby boy 39 wks 2 days G2: Current, Late PNC SEE RECORDS Alcohol: No Marijuana : No Cocaine: No Other Illicit Drugs: No Cigarettes: Current Everyday Smoker. [id number] Cigarette Frequency: > 10 per day Advised to Stop: Yes Cigarette Comments: Pt currently smokes around 1 pack per day. Pt advised to quit smoking extensively by this RN. Pt refused education, was not responsive to education or instruction. 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 INFECTIOUS HISTORY Gonorrhea: No Genital Herpes: Yes Chlamydia: Yes Tuberculosis: No Syphilis: No Hepatitis: No HIV/AIDS Exposure: No Rash or Viral Illness: No HPV: No Infectious History Comments: Chlamydia: 2012 Herpes: Pt states that she went to health dept where they told her she had genital herpes, pt does not know if she was treated. No Valtrex. PHYSICAL EXAM General: Normal HEENT: Normal Neurologic: Normal Thyroid: Normal Heart: Normal Lungs: Normal Breast: Normal Back: Normal Abdomen: Normal Genitourinary Exam: Normal Extremities: Normal DTRs: Normal Pelvic Type: Adequate Physical Exam Comments: pt reports no hsv lesions, but was told years ago she was hsv positive no outbreaks no lesions noted spec exam Vital Signs: Reviewed VAGINAL EXAM Dilatation: 4 Effacement: 70 Station: -2 Contraction Comments: irregular MEMBRANES Membranes: Ruptured Amniotic Fluid Color: Clear FETUS A EGA: 40.5 Monitoring: External US Accelerations: 15X15 Decelerations: None FHR Category: Category I Presentation: Vertex Admit Comment: 25 yo presents with SROM EDc 11/08/16 EGA 40+5 elevated dopplers wnl 2.1 09/19/16 abdomen nontender FHTs 120s average variability cat 1 cervix 4/70/-2 AROM clear start pitocin plan of care reviewed with pt PLANS FOR LABOR AND DELIVERY Labor and Delivery: None Pain Management: Natural Feeding Preference: Both Benefit of Breast Feed Discussed: Yes Circumcision: N/A INFORMED CONSENT Assignment: Violeta Amaro MD Signature: with User ID: [email or web address] : with User ID: [email or web address]
--- NOTE | 2016-11-13 19:01 | L&D Flow Sheet ---
LD Flowsheet Datetime Report Generated by CPN: 11/13/2016 19:00 Datetime: 11/13/2016 18:04 NBP Sys/Tasia/Mean (mmHg): 117 (QS system process) : 63 (QS system process) : 82 (QS system process) Pulse: 72 (QS system process) Respirations: 16 (Vicky Vitrano, RN) Datetime: 11/13/2016 18:00 Vital Signs Stage of : Recovery (Vicky Vitrano, RN) Pain Pain Scale: 0 (Vicky Vitrano, RN) Pain Presence: None/Denies (Vicky Vitrano, RN) Pain Type: N/A (Vicky Vitrano, RN) Datetime: 11/13/2016 17:50 NBP Sys/Tasia/Mean (mmHg): 115 (QS system process) : 55 (QS system process) : 76 (QS system process) Pulse: 56 (QS system process) Respirations: 16 (Vicky Vitrano, RN) Datetime: 11/13/2016 17:30 Vital Signs Stage of : Recovery (Vicky Vitrano, RN) Pain Pain Scale: 0 (Vicky Vitrano, RN) Pain Presence: None/Denies (Vicky Vitrano, RN) Pain Type: N/A (Vicky Vitrano, RN) Datetime: 11/13/2016 17:20 NBP Sys/Tasia/Mean (mmHg): 100 (QS system process) : 53 (QS system process) : 74 (QS system process) Pulse: 44 (QS system process) Respirations: 16 (Vicky Vitrano, RN) Datetime: 11/13/2016 17:00 Vital Signs Stage of : Recovery (Vicky Vitrano, RN) Pain Pain Scale: 0 (Vicky Vitrano, RN) Pain Presence: None/Denies (Vicky Vitrano, RN) Pain Type: N/A (Vicky Vitrano, RN) Datetime: 11/13/2016 16:45 Vital Signs Stage of : Recovery (Vicky Vitrano, RN) Pain Pain Scale: 0 (Vicky Vitrano, RN) Pain Presence: None/Denies (Vicky Vitrano, RN) Pain Type: N/A (Vicky Vitrano, RN) Datetime: 11/13/2016 16:34 NBP Sys/Tasia/Mean (mmHg): 126 (QS system process) : 63 (QS system process) : 84 (QS system process) Pulse: 73 (QS system process) Respirations: 16 (Vicky Vitrano, RN) Datetime: 11/13/2016 16:30 Vital Signs Stage of : Recovery (Vicky Vitrano, RN) Pain Pain Scale: 0 (Vicky Vitrano, RN) Pain Presence: None/Denies (Vicky Vitrano, RN) Pain Type: N/A (Vicky Vitrano, RN) Datetime: 11/13/2016 16:15 Vital Signs Stage of : Recovery (Vicky Vitrano, RN) NBP Sys/Tasia/Mean (mmHg): 93 (QS system process) : 51 (QS system process) : 64 (QS system process) Pulse: 65 (QS system process) Respirations: 16 (Vicky Vitrano, RN) Pain Pain Scale: 0 (Vicky Vitrano, RN) Pain Presence: None/Denies (Vicky Vitrano, RN) Pain Type: N/A (Vicky Vitrano, RN) Datetime: 11/13/2016 16:10 NBP Sys/Tasia/Mean (mmHg): 116 (QS system process) : 51 (QS system process) : 74 (QS system process) Pulse: 65 (QS system process) Datetime: 11/13/2016 16:04 NBP Sys/Tasia/Mean (mmHg): 85 (QS system process) : 53 (QS system process) : 65 (QS system process) Pulse: 73 (QS system process) Datetime: 11/13/2016 16:00 Vital Signs Stage of : Recovery (Vicky Vitrano, RN) NBP Sys/Tasia/Mean (mmHg): 93 (QS system process) : 55 (QS system process) : 70 (QS system process) Pulse: 55 (QS system process) Respirations: 16 (Vicky Vitrano, RN) Pain Pain Scale: 0 (Vicky Vitrano, RN) Pain Presence: None/Denies (Vicky Vitrano, RN) Pain Type: N/A (Vicky Vitrano, RN) Datetime: 11/13/2016 15:59 Vital Signs Stage of : Recovery (Vicky Vitrano, RN) Datetime: 11/13/2016 15:52 Uterine Activity Monitor Mode: External (Vicky Vitrano, RN) Frequency (min): 2-3 (Vicky Vitrano, RN) Quality: Moderate to Strong (Vicky Vitrano, RN) Duration (sec): 60-90 (Vicky Vitrano, RN) Duration Criteria: Less than Two 120 Second Contractions (Vicky Vitrano, RN) Pattern: Normal: <= 5 Contractions in 10 Minutes (Vicky Vitrano, RN) Resting Tone (Palpate): Relaxed (Vicky Vitrano, RN) Assessment A Monitor Mode: External US (Vicky Vitrano, RN) Variability: Moderate 6-25 bpm (Vikcy Vitrano, RN) Comments: Unable to determine baseline d/t broken tracing; RN remains at bedside adjusting US (Vicky Vitrano, RN) Datetime: 11/13/2016 15:45 Uterine Activity Monitor Mode: External; Palpation (Vicky Vitrano, RN) Frequency (min): 2-3 (Vicky Vitrano, RN) Quality: Moderate to Strong (Vicky Vitrano, RN) Duration (sec): 60-90 (Vicky Vitrano, RN) Duration Criteria: Less than Two 120 Second Contractions (Vicky Vitrano, RN) Pattern: Normal: <= 5 Contractions in 10 Minutes (Vicky Vitrano, RN) Resting Tone (Palpate): Relaxed (Vicky Vitrano, RN) Assessment A Monitor Mode: External US (Vicky Vitrano, RN) FHR Baseline Rate : 110 (Vicky Vitrano, RN) Variability: Moderate 6-25 bpm (Vicky Vitrano, RN) Accelerations: 15X15 (Vicky Vitrano, RN) Decelerations: Variable (Vicky Vitrano, RN) Medications Pitocin (milliunit): Pitocin Remains (milliunits) @ 4 (Vicky Vitrano, RN) Stage 2 Pushing: Coached on Pushing (Vicky Vitrano, RN) Pushing Position: Pushing with Contractions (Vicky Vitrano, RN) Stage 2 Comments: RN and provider remain at bedside while pt pushes continuously adjusting US and assessing FHTs (Vicky Vitrano, RN) Datetime: 11/13/2016 15:42 Preparation for Delivery: Setup for Delivery (Vicky Vitrano, RN) Communication Comments: epidural turned off per A. Emmel CNM (Vicky Vitrano, RN) Datetime: 11/13/2016 15:40 NBP Sys/Tasia/Mean (mmHg): 103 (QS system process) : 60 (QS system process) : 77 (QS system process) Pulse: 73 (QS system process) Respirations: 16 (Vicky Vitrano, RN) I/O Interventions: [place] Discontinued (Vicky Vitrano, RN) LaborFlag: Antepartum (QS system process) Datetime: 11/13/2016 15:37 Vaginal Exam Dilatation (cm): 10.0 (Vicky Vitrano, RN) Effacement (%): 100 (Vicky Vitrano, RN) Station: 2 (Vicky Vitrano, RN) Exam by: Enmanuel Zarate CNM (Vicky Vitrano, RN) Patient Care IV/Blood Work: IV Infusing per Order (Vicky Vitrano, RN) Patient Care Comments: 125 mL/hour (Vicky Vitrano, RN) Communication Comments: Enmanuel Zarate CNM at bedside (Vicky Vitrano, RN) Datetime: 11/13/2016 15:36 Provider Reviewed Strip: Yes (Vicky Vitrano, RN) Communication Communication: RN at Bedside; RN Reviewed Strip; Provider at Bedside (Vicky Vitrano, RN) Datetime: 11/13/2016 15:34 NBP Sys/Tasia/Mean (mmHg): 98 (QS system process) : 53 (QS system process) : 70 (QS system process) Pulse: 56 (QS system process) LaborFlag: Antepartum (QS system process) Datetime: 11/13/2016 15:30 Uterine Activity Monitor Mode: External (Vicky Vitrano, RN) Frequency (min): 2-3 (Vicky Vitrano, RN) Quality: Moderate to Strong (Vicky Vitrano, RN) Duration (sec): 60-80 (Vicky Vitrano, RN) Duration Criteria: Less than Two 120 Second Contractions (Vicky Vitrano, RN) Pattern: Normal: <= 5 Contractions in 10 Minutes (Vicky Vitrano, RN) Resting Tone (Palpate): Relaxed (Vicky Vitrano, RN) Assessment A Monitor Mode: External US (Vicky Vitrano, RN) FHR Baseline Rate : 110 (Vicky Vitrano, RN) Variability: Moderate 6-25 bpm (Vicky Vitrano, RN) Accelerations: 15X15 (Vicky Vitrano, RN) Decelerations: None (Vicky Vitrano, RN) Medications Pitocin (milliunit): Pitocin Remains (milliunits) @ 4 (Vicky Vitrano, RN) Datetime: 11/13/2016 15:29 NBP Sys/Tasia/Mean (mmHg): 102 (QS system process) : 57 (QS system process) : 73 (QS system process) Pulse: 58 (QS system process) Respirations: 16 (Vicky Vitrano, RN) LaborFlag: Antepartum (QS system process) Datetime: 11/13/2016 15:24 NBP Sys/Tasia/Mean (mmHg): 93 (QS system process) : 51 (QS system process) : 69 (QS system process) Pulse: 62 (QS system process) Medications Pitocin (milliunit): Pitocin Increased to (milliunits) @ 4 (Vicky Vitrano, RN) LaborFlag: Antepartum (QS system process) Datetime: 11/13/2016 15:23 Monitor Interventions for UA: [place] Adjusted (Vicky Vitrano, RN) Datetime: 11/13/2016 15:18 NBP Sys/Tasia/Mean (mmHg): 90 (QS system process) : 55 (QS system process) : 71 (QS system process) Pulse: 69 (QS system process) Respirations: 16 (Vicky Vitrano, RN) Pain Presence: None/Denies (Vicky Vitrano, RN) Pain Type: N/A (Vicky Vitrano, RN) LaborFlag: Antepartum (QS system process) Datetime: 11/13/2016 15:17 NBP Sys/Tasia/Mean (mmHg): 92 (QS system process) : 54 (QS system process) : 68 (QS system process) Pulse: 67 (QS system process) LaborFlag: Antepartum (QS system process) Datetime: 11/13/2016 15:16 NBP Sys/Tasia/Mean (mmHg): 93 (QS system process) : 51 (QS system process) : 68 (QS system process) Pulse: 59 (QS system process) LaborFlag: Antepartum (QS system process) Datetime: 11/13/2016 15:15 NBP Sys/Tasia/Mean (mmHg): 99 (QS system process) : 58 (QS system process) : 75 (QS system process) Pulse: 63 (QS system process) Uterine Activity Monitor Mode: External (Vicky Vitrano, RN) Frequency (min): 3-4 (Vicky Vitrano, RN) Quality: Moderate to Strong (Vicky Vitrano, RN) Duration (sec): 50-80 (Vicky Vitrano, RN) Duration Criteria: Less than Two 120 Second Contractions (Vicky Vitrano, RN) Pattern: Normal: <= 5 Contractions in 10 Minutes (Vicky Vitrano, RN) Resting Tone (Palpate): Relaxed (Vicky Vitrano, RN) Assessment A Monitor Mode: External US (Vicky Vitrano, RN) Monitor Interventions for FHR: Ultrasound Adjusted (Vicky Vitrano, RN) FHR Baseline Rate : 115 (Vicky Vitrano, RN) Variability: Moderate 6-25 bpm (Vicky Vitrano, RN) Accelerations: 15X15 (Vicky Vitrano, RN) Decelerations: None (Vicky Vitrano, RN) Medications Pitocin (milliunit): Pitocin Remains (milliunits) @ (Annotations: 2) (Vicky Vitrano, RN) LaborFlag: Antepartum (QS system process) Datetime: 11/13/2016 15:14 NBP Sys/Tasia/Mean (mmHg): 93 (QS system process) : 52 (QS system process) : 68 (QS system process) Pulse: 52 (QS system process) LaborFlag: Antepartum (QS system process) Datetime: 11/13/2016 15:13 NBP Sys/Tasia/Mean (mmHg): 93 (QS system process) : 54 (QS system process) : 70 (QS system process) Pulse: 56 (QS system process) I/O Interventions: Dumont Cath Inserted (Vicky Vitrano, RN) LaborFlag: Antepartum (QS system process) Datetime: 11/13/2016 15:12 NBP Sys/Tasia/Mean (mmHg): 91 (QS system process) : 51 (QS system process) : 69 (QS system process) Pulse: 52 (QS system process) LaborFlag: Antepartum (QS system process) Datetime: 11/13/2016 15:11 NBP Sys/Tasia/Mean (mmHg): 95 (QS system process) : 53 (QS system process) : 69 (QS system process) Pulse: 61 (QS system process) LaborFlag: Antepartum (QS system process) Datetime: 11/13/2016 15:10 NBP Sys/Tasia/Mean (mmHg): 94 (QS system process) : 50 (QS system process) : 66 (QS system process) Pulse: 59 (QS system process) LaborFlag: Antepartum (QS system process) Datetime: 11/13/2016 15:09 NBP Sys/Tasia/Mean (mmHg): 96 (QS system process) : 52 (QS system process) : 69 (QS system process) Pulse: 57 (QS system process) LaborFlag: Antepartum (QS system process) Datetime: 11/13/2016 15:08 NBP Sys/Tasia/Mean (mmHg): 97 (QS system process) : 55 (QS system process) : 70 (QS system process) Pulse: 56 (QS system process) LaborFlag: Antepartum (QS system process) Datetime: 11/13/2016 15:07 NBP Sys/Tasia/Mean (mmHg): 93 (QS system process) : 51 (QS system process) : 66 (QS system process) Pulse: 57 (QS system process) Monitor Interventions for UA: [place] Adjusted (Vicky Vitrano, RN) Anesthesia Anesthesia Plans: Epidural (Vicky Vitrano, RN) Epidural Procedure Other: Pump Started (Vicky Vitrano, RN) LaborFlag: Antepartum (QS system process) Datetime: 11/13/2016 15:06 NBP Sys/Tasia/Mean (mmHg): 91 (QS system process) : 52 (QS system process) : 69 (QS system process) Pulse: 56 (QS system process) LaborFlag: Antepartum (QS system process) Datetime: 11/13/2016 15:05 NBP Sys/Tasia/Mean (mmHg): 95 (QS system process) : 65 (QS system process) : 77 (QS system process) Pulse: 88 (QS system process) LaborFlag: Antepartum (QS system process) Datetime: 11/13/2016 15:04 NBP Sys/Tasia/Mean (mmHg): 98 (QS system process) : 54 (QS system process) : 67 (QS system process) Pulse: 65 (QS system process) Monitor Interventions for UA: [place] Adjusted (Vicky Vitrano, RN) Monitor Interventions for FHR: Ultrasound Adjusted (Vicky Vitrano, RN) Patient Position/Activity: Left Tilt; Low Fowlers (Vicky Vitrano, RN) LaborFlag: Antepartum (QS system process) Datetime: 11/13/2016 15:03 NBP Sys/Tasia/Mean (mmHg): 104 (QS system process) : 59 (QS system process) : 73 (QS system process) Pulse: 144 (QS system process) LaborFlag: Antepartum (QS system process) Datetime: 11/13/2016 15:01 NBP Sys/Tasia/Mean (mmHg): 99 (QS system process) : 60 (QS system process) : 74 (QS system process) Pulse: 73 (QS system process) Epidural Procedure: Loading Dose (Vicky Vitrano, RN) LaborFlag: Antepartum (QS system process) Datetime: 11/13/2016 15:00 NBP Sys/Tasia/Mean (mmHg): 100 (QS system process) NBP Sys/Tasia/Mean (mmHg): 97 (QS system process) : 59 (QS system process) : 54 (QS system process) : 74 (QS system process) : 73 (QS system process) Pulse: 65 (QS system process) Pulse: 63 (QS system process) Pulse: 64 (QS system process) SpO2 (%): 99 (QS system process) Uterine Activity Monitor Mode: External (Vicky Vitrano, RN) Frequency (min): 2-6 (Vicky Vitrano, RN) Quality: Moderate to Strong (Vicky Vitrano, RN) Duration (sec): 50-70 (Vicky Vitrano, RN) Duration Criteria: Less than Two 120 Second Contractions (Vicky Vitrano, RN) Pattern: Normal: <= 5 Contractions in 10 Minutes (Vicky Vitrano, RN) Resting Tone (Palpate): Relaxed (Vicky Vitrano, RN) Assessment A Monitor Mode: External US (Vicky Vitrano, RN) FHR Baseline Rate : 115 (Vicky Vitrano, RN) Variability: Moderate 6-25 bpm (Vicky Vitrano, RN) Accelerations: 15X15 (Vicky Vitrano, RN) Decelerations: None (Vicky Vitrano, RN) Medications Pitocin (milliunit): Pitocin Remains (milliunits) @ 2 (Vicky Vitrano, RN) LaborFlag: Antepartum (QS system process) Datetime: 11/13/2016 14:59 Anesthesia Anesthesia Plans: Epidural (Vicky Vitrano, RN) Epidural Procedure: Cath Placed (Vicky Vitrano, RN) Epidural Procedure: Test Dose (Vicky Vitrano, RN) Datetime: 11/13/2016 14:55 Pulse: 64 (QS system process) SpO2 (%): 100 (QS system process) LaborFlag: Antepartum (QS system process) Datetime: 11/13/2016 14:54 Comments: Broken tracing while pt sitting up for epidural; RN remains at bedside adjusting US throughout procedure. (Vicky Vitrano, RN) Datetime: 11/13/2016 14:50 Pulse: 86 (QS system process) SpO2 (%): 100 (QS system process) LaborFlag: Antepartum (QS system process) Datetime: 11/13/2016 14:49 Patient Care IV/Blood Work: New IV Bag Hung; IV Bag Number @ 2 (Vicky Vitrano, RN) Datetime: 11/13/2016 14:48 Procedure TIME OUT Procedure Verify: Correct Patient Identity; Correct Side and Site are Marked; Accurate Procedure Consent Form; Agreement on Procedure to be Done; Correct Patient Position; Relevant Images and Results are Properly Labeled and Displayed; Addressed Need to Administer Antibiotics or Fluids for Irrigation; Safety Precautions Based on Patient History or Medication Use (Vicky ECTOR Pratt) Anesthesia Anesthesia Plans: Epidural (Vicky Vitrano, RN) Epidural Positioning: Sitting (Vicky Rosauraano, RN) Anesthesia Comments: Dr. García at bedside (Vicky Rosauraano, RN) Datetime: 11/13/2016 14:46 Procedure TIME OUT Procedure Verify: Correct Patient Identity; Correct Side and Site are Marked; Accurate Procedure Consent Form; Agreement on Procedure to be Done; Relevant Images and Results are Properly Labeled and Displayed; Addressed Need to Administer Antibiotics or Fluids for Irrigation; Safety Precautions Based on Patient History or Medication Use (Vicky Terence, RN) Anesthesia Anesthesia Plans: Epidural (Vicky Vitrano, RN) Anesthesia Comments: Dr. García called for epidural (Vicky Vitrano, RN) Datetime: 11/13/2016 14:45 Uterine Activity Monitor Mode: External; Palpation (Vicky Vitrano, RN) Frequency (min): 2-5 (Vicky Vitrano, RN) Quality: Moderate to Strong (Vicky Vitrano, RN) Duration (sec): 60-80 (Vicky Vitrano, RN) Duration Criteria: Less than Two 120 Second Contractions (Vicky Vitrano, RN) Pattern: Normal: <= 5 Contractions in 10 Minutes (Vicky Vitrano, RN) Resting Tone (Palpate): Relaxed (Vicky Vitrano, RN) Medications Pitocin (milliunit): Pitocin Remains (milliunits) @ 2 (Vicky Vitrano, RN) Datetime: 11/13/2016 14:43 Monitor Interventions for FHR: Ultrasound Adjusted (Vicky Vitrano, RN) Datetime: 11/13/2016 14:42 Comfort Measures: Breathing/Relaxation; Coaching (Vicky Vitrano, RN) Datetime: 11/13/2016 14:39 Communication Comments: May have epidural PRN per A. Emmel, CNM (Vicky Vitrano, RN) Datetime: 11/13/2016 14:37 Pain Coping: Requesting Pain Medication or Epidural; Crying (Vicky Vitrano, RN) Patient Care IV/Blood Work: IV Bolus Started (Vicky Vitrano, RN) Procedure TIME OUT Procedure Verify: Correct Patient Identity; Correct Side and Site are Marked; Accurate Procedure Consent Form; Agreement on Procedure to be Done; Relevant Images and Results are Properly Labeled and Displayed; Addressed Need to Administer Antibiotics or Fluids for Irrigation; Safety Precautions Based on Patient History or Medication Use (Vicky Vitrano, RN) Anesthesia Anesthesia Plans: Epidural (Vicky Vitrano, RN) Datetime: 11/13/2016 14:34 Patient Position/Activity: Left Lateral (Vicky Vitrano, RN) Datetime: 11/13/2016 14:32 Patient Position/Activity: Left Lateral; Peanut Ball (Vicky Vitrano, RN) I/O Interventions: Clear Liquids Given (Vicky Vitrano, RN) Datetime: 11/13/2016 14:30 Assessment A Monitor Mode: Internal Scalp Electrode (Vicky Vitrano, RN) FHR Baseline Rate : 120 (Vicky Vitrano, RN) Variability: Moderate 6-25 bpm (Vicky Vitrano, RN) Accelerations: 15X15 (Vicky Vitrano, RN) Decelerations: None (Vicky Vitrano, RN) Medications Pitocin (milliunit): Pitocin Remains (milliunits) @ 2 (Vicky Vitrano, RN) Datetime: 11/13/2016 14:23 Monitor Interventions for UA: [place] Adjusted (Vicky Vitrano, RN) Datetime: 11/13/2016 14:19 Monitor Interventions for UA: [place] Adjusted (Vicky Vitrano, RN) Monitor Interventions for FHR: Ultrasound Adjusted (Vicky Vitrano, RN) Datetime: 11/13/2016 14:18 Medications Pitocin (milliunit): Pitocin Started (milliunits) @ 2; Pitocin 20 Units in 1000ml NS (Vicky Vitrano, RN) Datetime: 11/13/2016 14:15 Uterine Activity Monitor Mode: External; Palpation (Vicky Vitrano, RN) Frequency (min): 4-5 (Vicky Vitrano, RN) Quality: Moderate (Vicky Vitrano, RN) Duration (sec): 60-70 (Vicky Vitrano, RN) Duration Criteria: Less than Two 120 Second Contractions (Vicky Vitrano, RN) Pattern: Normal: <= 5 Contractions in 10 Minutes (Vicky Vitrano, RN) Resting Tone (Palpate): Relaxed (Vicky Vitrano, RN) Hygiene: Underpad Changed; Linens Changed (Vicky Vitrano, RN) Patient Care Comments: Up to birthing ball (Vicky Vitrano, RN) Datetime: 11/13/2016 14:03 Patient Position/Activity: Left Tilt; High Fowlers (Vicky Vitrano, RN) Hygiene: Underpad Changed (Vicky Vitrano, RN) Datetime: 11/13/2016 14:02 Vaginal Exam Dilatation (cm): 4.0 (Vicky Vitrano, RN) Effacement (%): 70 (Vicky Vitrano, RN) Station: -2 (Vicky Vitrano, RN) Exam by: Enmanuel Zarate CNM (Vicky Vitrano, RN) Membrane Status: Ruptured (Vicky Vitrano, RN) Membranes Rupture Method: Spontaneous (Vicky Vitrano, RN) Amniotic Fluid Color: Clear (Vicky Vitrano, RN) Amniotic Fluid Amount: Moderate (Vicky Vitrano, RN) Membrane Comments: Forebag ruptured (Vicky Vitrano, RN) Datetime: 11/13/2016 14:00 Temperature (F): 98.0 (Vicky Vitrano, RN) Temperature (C): 36.7 (QS system process) Temperature Route: Oral (Vicky Vitrano, RN) Assessment A Monitor Mode: External US (Vicky Pratt, RN) FHR Baseline Rate : 120 (Vicky Vitrano, RN) Variability: Moderate 6-25 bpm (Vicky Vitrano, RN) Accelerations: 15X15 (Vicky Vitrano, RN) Decelerations: None (Vicky Vitrano, RN) Communication Comments: Enmanuel Zarate CNM completing speculum exam d/t pt reported history of herpes. No lesions noted. (Vicky Vitrano, RN) LaborFlag: Antepartum (QS system process) Datetime: 11/13/2016 13:58 NBP Sys/Tasia/Mean (mmHg): 129 (QS system process) : 58 (QS system process) : 83 (QS system process) Pulse: 60 (QS system process) LaborFlag: Antepartum (QS system process) Datetime: 11/13/2016 13:57 Monitor Interventions for FHR: Ultrasound Adjusted (Vicky Vitrano, RN) Provider Reviewed Strip: Yes (Vicky Vitrano, RN) Communication Communication: RN at Bedside; RN Reviewed Strip; Provider at Bedside (Vicky Vitrano, RN) Datetime: 11/13/2016 13:49 I/O Interventions: Up to BR (Vicky Vitrano, RN) Datetime: 11/13/2016 13:45 Uterine Activity Monitor Mode: External; Palpation (Vicky Vitrano, RN) Frequency (min): Irregular (Vicky Vitrano, RN) Quality: Mild/Moderate (Vicky Vitrano, RN) Duration (sec): 50-60 (Vicky Vitrano, RN) Duration Criteria: Less than Two 120 Second Contractions (Vicky Vitrano, RN) Pattern: Normal: <= 5 Contractions in 10 Minutes (Vicky Vitrano, RN) Resting Tone (Palpate): Relaxed (Vicky Vitrano, RN) Datetime: 11/13/2016 13:30 Assessment A Monitor Mode: External US (Vicky Vitrano, RN) FHR Baseline Rate : 125 (Vicky Vitrano, RN) Variability: Moderate 6-25 bpm (Vicky Vitrano, RN) Accelerations: 15X15 (Vicky Vitrano, RN) Decelerations: None (Vicky Vitrano, RN) Datetime: 11/13/2016 13:27 NBP Sys/Tasia/Mean (mmHg): 98 (QS system process) : 62 (QS system process) : 75 (QS system process) Pulse: 52 (QS system process) LaborFlag: Antepartum (QS system process) Datetime: 11/13/2016 13:15 Uterine Activity Monitor Mode: External; Palpation (Vicky Vitrano, RN) Frequency (min): Irregular (Vicky Vitrano, RN) Quality: Mild/Moderate (Vicky Vitrano, RN) Duration (sec): 50-90 (Vicky Vitrano, RN) Duration Criteria: Less than Two 120 Second Contractions (Vicky Vitrano, RN) Pattern: Normal: <= 5 Contractions in 10 Minutes (Vicky Vitrano, RN) Resting Tone (Palpate): Relaxed (Vicky Vitrano, RN) Datetime: 11/13/2016 13:04 Patient Care IV/Blood Work: IV Bolus Given ml @ 300; IV Infusing per Order (Vicky Vitrano, RN) Patient Care Comments: 125 mL/hour (Vicky Vitrano, RN) Datetime: 11/13/2016 13:02 NBP Sys/Tasia/Mean (mmHg): 107 (QS system process) : 59 (QS system process) : 77 (QS system process) Pulse: 54 (QS system process) Respirations: 16 (Vicky Vitrano, RN) LaborFlag: Antepartum (QS system process) Datetime: 11/13/2016 13:00 Assessment A Monitor Mode: External US (Vicky Vitrano, RN) FHR Baseline Rate : 120 (Vicky Vitrano, RN) Variability: Moderate 6-25 bpm (Vicky Vitrano, RN) Accelerations: 15X15 (Vicky Vitrano, RN) Decelerations: None (Vicky Pratt, RN) Patient Care Comments: Consents reviewed and signed (Vicky Pratt, RN) Patient Care Comments: Labs drawn (Vicky Pratt, RN) Datetime: 11/13/2016 12:53 Patient Care IV/Blood Work: IV Started; IV Bolus Started; IV Infusing per Order; IV Bag Number @ 1 (Vicky Pratt RN) Patient Care Comments: 18 G R forearm site WNL LR infusing per order (Vicky Pratt, RN) Datetime: 11/13/2016 12:45 Uterine Activity Monitor Mode: External (Vicky Vitrano, RN) Frequency (min): Irregular (Vicky Vitrano, RN) Quality: Mild/Moderate (Vicky Vitrano, RN) Duration (sec): 50-70 (Vicky Vitrano, RN) Duration Criteria: Less than Two 120 Second Contractions (Vicky Vitrano, RN) Pattern: Normal: <= 5 Contractions in 10 Minutes (Vicky Vitrano, RN) Resting Tone (Palpate): Relaxed (Vicky Vitrano, RN) Datetime: 11/13/2016 12:41 I/O Interventions: Up to BR (Vicky Vitrano, RN) Datetime: 11/13/2016 12:40 Communication Comments: Call to Enmanuel ZarateEDGARDO. Reviewed pt history, EGA 40.5, , pt complaints, nursing assessment, SVE, toco tracing, FHTs, VS, positive Amnisure. Orders to admit pt for SROM. (Vicky Vitrano, RN) Datetime: 11/13/2016 12:30 Assessment A Monitor Mode: External US (Vicky Vitrano, RN) FHR Baseline Rate : 125 (Vicky Vitrano, RN) Variability: Moderate 6-25 bpm (Vicky Vitrano, RN) Accelerations: 15X15 (Vicky Vitrano, RN) Decelerations: None (Vicky Vitrano, RN) Datetime: 11/13/2016 12:27 NBP Sys/Tasia/Mean (mmHg): 100 (QS system process) : 64 (QS system process) : 75 (QS system process) Pulse: 67 (QS system process) Respirations: 16 (Vicky Vitrano, RN) LaborFlag: Antepartum (QS system process) Datetime: 11/13/2016 12:15 Uterine Activity Monitor Mode: External; Palpation (Vicky Vitrano, RN) Frequency (min): Irregular (Vicky Vitrano, RN) Quality: Mild/Moderate (Vicky Vitrano, RN) Duration (sec): 50-70 (Vicky Vitrano, RN) Duration Criteria: Less than Two 120 Second Contractions (Vicky Vitrano, RN) Pattern: Normal: <= 5 Contractions in 10 Minutes (Vicky Vitrano, RN) Resting Tone (Palpate): Relaxed (Vicky Vitrano, RN) Assessment A Monitor Mode: External US (Vicky Vitrano, RN) FHR Baseline Rate : 130 (Vicky Vitrano, RN) Variability: Moderate 6-25 bpm (Vicky Vitrano, RN) Accelerations: 15X15 (Vicky Vitrano, RN) Decelerations: None (Vicky Vitrano, RN) Datetime: 11/13/2016 12:12 Monitor Interventions for UA: [place] Adjusted (Vicky Vitrano, RN) Datetime: 11/13/2016 12:03 Vaginal Exam Dilatation (cm): 3.5 (Vicky Vitrano, RN) Effacement (%): 50 (Vicky Vitrano, RN) Station: -2 (Vicky Vitrano, RN) Exam by: Nicole Pratt RN (Vicky Vitrano, RN) Vaginal Bleeding: None (Vicky Vitrano, RN) Cervix, Consistency: Soft (Vicky Vitrano, RN) Cervix, Position: Posterior (Vicky Vitrano, RN) Datetime: 11/13/2016 12:00 Pain Pain Scale: 3 (Vicky Vitrano, RN) Pain Presence: Intermittent (Vicky Vitrano, RN) Pain Type: Ache (Vicky Vitrano, RN) Pain Location: Back (Vicky Vitrano, RN) Pain Relief Measures: Comfort Measures (Vicky Vitrano, RN) Pain Coping: Talking Through Contractions (Vicky Vitrano, RN) Vaginal Bleeding: Scant (Annotations: Reports scant bleeding since SVE at [facility] appointment yesterday 11/12/16.) (Vicky Vitrano, RN) Maternal Assessment Level of Consciousness: Fully Conscious (Vicky Vitrano, RN) DTR's/Clonus: DTRs 1+; No Clonus (Vicky Vitrano, RN) Headache: Denies (Vicky Vitrano, RN) Breath Sounds, Left: Clear and Equal (Vicky Vitrano, RN) Breath Sounds, Right: Clear and Equal (Vicky Vitrano, RN) Nausea/Vomiting: Denies (Vicky Vitrano, RN) RUQ Epigastric Pain: Denies (Vicky Vitrano, RN) LaborFlag: Antepartum (QS system process) Datetime: 11/13/2016 11:58 NBP Sys/Tasia/Mean (mmHg): 98 (QS system process) : 53 (QS system process) : 72 (QS system process) Pulse: 77 (QS system process) Respirations: 16 (Vicky Vitrano, RN) LaborFlag: Antepartum (QS system process) Datetime: 11/13/2016 11:55 Patient Position/Activity: Left Tilt; Semi-Fowlers (Vicky Vitrano, RN) I/O Interventions: Clear Liquids Given (Vicky Vitrano, RN) Teaching Instructional Method: Verbal; Patient Instructed; Family/Support Person Instructed; Verbalized Understanding (Vicky Vitrano, ECTOR) Plan of Care: Plan of Care Discussed (Vicky Pratt, ECTOR) Unit Routine: [place] to Room; Call [place]; Bed; Unit Personnel; Monitoring; Safety/Fall Risk Prevention; Bathroom Privileges (Vicky Pratt, ECTOR)
[2016-11-13] MEDS: FERROUS SULFATE 325 MG TABLET PO SCH (20:24)
[2016-11-13] MEDS: DOCUSATE SODIUM 100 MG CAPSULE PO SCH (20:24)
[2016-11-13] MEDS: IBUPROFEN 800 MG TABLET PO SCH (21:12)
[2016-11-13] MEDS: NICOTINE 21 MG/24 HR PATCH.TD24 TD SCH (22:02)
[2016-11-14] MEDS: IBUPROFEN 800 MG TABLET PO SCH ×3 (05:44→21:06)
--- NOTE | 2016-11-14 06:00 | L&D Current Admission ---
Current Admit Datetime Report Generated by CPN: 11/14/2016 06:00 ADMISSION INFORMATION Current Admit Date/Time: 11/13/2016 12:40 (11/13/2016 12:55:Vicky Pratt RN) Reason for Admission: Rupture of Membranes (11/13/2016 12:55:Vicky Pratt RN) Chief Complaint: Contractions (11/13/2016 12:55:Vicky Pratt RN) Medications During : Vitamin (11/13/2016 12:55:Vicky Pratt RN) Meds During -Oth: Flexeril (11/13/2016 12:55:Vicky Pratt RN) EGA per Dates: 40.5 (11/13/2016 12:55:QS system process) Method of Arrival: Ambulatory (11/13/2016 12:55:Vicky Pratt RN) Admitted From: Home (11/13/2016 12:55:Vicky Pratt RN) Reason for Induction: Not Applicable (11/13/2016 12:55:Vicky Pratt RN) Records Available: Yes (11/13/2016 12:55:Vicky Pratt RN) General Admission Information: Reviewed; Confirmed (11/13/2016 12:55:Vicky Pratt RN) General Admission Reviewed By: Nicole Pratt RN (11/13/2016 12:55:Vicky Pratt RN) BELONGINGS/ADVANCED DIRECTIVES Other Belongings: [facility] belongings consent (11/13/2016 12:55:Vicky Pratt RN) Disposition of Belongings: Kept with Patient (11/13/2016 12:55:Vicky Pratt RN) Advance Direct for Healthcare: No, and Wants No Information (11/13/2016 12:55:Vicky Pratt RN) Durable Power of Irrigationist: Yes (11/13/2016 12:55:Vicky Pratt RN) Durable Power of Irrigationist Name: Mercedes Archibald; Financial POA (11/13/2016 12:55:Vicky Pratt RN) Living Will: No (11/13/2016 12:55:Vicky Pratt RN) Organ Donor: Undecided (11/13/2016 12:55:Vicky Pratt RN) Pt Rights Information Given: Yes (11/13/2016 12:55:Vicky Pratt RN) Pt Understands Pt Rights: Yes (11/13/2016 12:55:Vicky Pratt RN) LEARNING ASSESSMENT Knowledge Level: Understands L_D Process; Understands Care Activities; Had Pre-Hospital Education; Understands Diagnosis (11/13/2016 12:55:Vicky Pratt RN) Barriers to Learning: None (11/13/2016 12:55:Vicky Pratt RN) Learning Readiness: Motivated (11/13/2016 12:55:Vicky Pratt RN) Learns Best By: 1 to 1 Instruction (11/13/2016 12:55:Vicky Pratt RN) Learning Needs: Labor and Delivery Process; Pain Management; Symptoms to Report; Treatment Plan; Medication; Diagnosis (11/13/2016 12:55:Vicky Pratt RN) DOMESTIC VIOLANCE SCREENING Dom Viol Threatened/Hurt: No (11/13/2016 12:55:Vicky Pratt RN) Hx of Abuse/Neglect past 2yrs: No (11/13/2016 12:55:Vicky Pratt RN) Feel Unsafe Going Home: No (11/13/2016 12:55:Vicky Pratt RN) Addt'l Observ Indicating Abuse: No (11/13/2016 12:55:Vicky Pratt RN) Reason Unable to Complete Screen: N/A, Screen Completed (11/13/2016 12:55:Vicky Pratt RN) Considered Personal Harm/Suicide: No (11/13/2016 12:55:Vicky Pratt RN) NUTRITIONAL/FUNCTIONAL SCREENING Problem with Appetite >5 Days: No (11/13/2016 12:55:Vicky Pratt RN) Chew/Swallow Difficulties: No (11/13/2016 12:55:Vicky Pratt RN) Inappropriate Wt Gain/Loss: No (11/13/2016 12:55:Vicky Pratt RN) Presence Skin Breakdown/Ulcer: No (11/13/2016 12:55:Vicky Pratt RN) Special Diet: No (11/13/2016 12:55:Vicky Pratt RN) Pt Requests Business Intelligence Architect Visit: No (11/13/2016 12:55:Vicky Pratt RN) Hx of Any of the Following?: N/A (11/13/2016 12:55:Vicky Pratt RN) New Diagnosis of: N/A (11/13/2016 12:55:Vicky Pratt RN) Requires Assist w/Ambulation: No (11/13/2016 12:55:Vicky Pratt RN) Uses Assist Device to Ambulate: No (11/13/2016 12:55:Vicky Pratt RN) Pt Requires Help w/ADL's: No (11/13/2016 12:55:Vicky Pratt RN)
--- NOTE | 2016-11-14 06:01 | L&D General Admission ---
General Admit Datetime Report Generated by CPN: 11/14/2016 06:00 INFORMATION Patient Age: 24 (07/15/2013 16:45:QS system process) EDC: 11/08/2016 00:00 (08/07/2016 21:21:Niesha Horton RN) : 2 (08/07/2016 21:21:Philly Wright RN) Para: 1 (08/07/2016 21:21:Philly Wright RN) Term: 1 (08/07/2016 21:21:Philly Wright RN) : 0 (08/07/2016 21:21:Philly Wright RN) Spontaneous Abortions: 0 (08/07/2016 21:21:Philly Wright RN) Induced Abortions: 0 (08/07/2016 21:21:Philly Wright RN) Livin (08/07/2016 21:21:Philly Wright RN) Cesareans: 0 (08/07/2016 21:21:Philly Wright RN) VBACs: 0 (08/07/2016 21:21:Philly Wright RN) Ectopic: 0 (08/07/2016 21:21:Philly Wright RN) Multiple Births: 0 (08/07/2016 21:21:Philly Wright RN) Baby, Number in Womb: 1 (08/07/2016 21:21:Philly Wright RN) CARE Primary Die Mechanic: [facility] (08/07/2016 21:21:Philly Wright RN) Month of 1st Visit: May 2016 (08/07/2016 21:21:Yenny Rosenthal RN) Adequate Care: No (08/07/2016 21:21:Vicky Pratt RN) Prepregnancy Weight (lb): 210 (08/07/2016 21:21:Philly Wright RN) Prepregnancy Weight (kg): 95.5 (08/07/2016 21:21:QS system process) Height (in): 69 (11/13/2016 18:12:QS system process) ALLERGIES Medication Allergy: No (08/07/2016 21:21:Philly Wright RN) Medication Allergies: latex/MO/rash (11/13/2016) (11/13/2016 12:16:QS system process) Latex Allergy: Latex Allergies (08/07/2016 21:21:Philly Wright RN) Food Allergies: NKFA (08/07/2016 21:21:Yenny Rosenthal RN) Environmental Allergies: none (08/07/2016 21:21:Yenny Rosenthal RN) COMMUNICATION Primary Language: [place] Zealander (08/07/2016 21:21:Philly Wright RN) Medical Tx Preferred Language: [place]al[place] (08/07/2016 21:21:Philly Wright RN) [place]ander Communication Ability: Speaks [place]; Reads [place]al[place] (08/07/2016 21:21:Evie Patel RN) Communication Barrier(s): None (08/07/2016 21:21:Philly Wright RN) DEMOGRAPHICS Address: [address] [place] [address], [address] [place] [address] (10/12/2016 11:12:QS system process) Zipcode: [address] (08/07/2016 21:21:QS system process) Home (10/12/2016 11:12:QS system process) SSN: [id number] (07/15/2015 16:45:QS system process) Next of Kin Name: MERCEDES ARCHIBALD (08/07/2016 21:21:QS system process) Next of Kin (08/07/2016 21:21:QS system process) Next of Kin Relationship: MO (08/07/2016 21:21:QS system process) Date of : 1990 (07/15/2015 16:45:QS system process) Marital Status: Legally (10/12/2016 11:12:QS system process) Sex: Female (07/15/2015 16:45:QS system process) Race: (07/15/2015 16:45:QS system process) Ethnicity: Non- or (07/15/2015 16:45:QS system process) Mormonism: Rastafarian (10/12/2016 11:12:QS system process) DRUG AND ALCOHOL USE Alcohol: No (08/07/2016 21:21:Evie Patel RN) Cigarettes: Current Everyday Smoker. [id number] (08/07/2016 21:21:Evie Patel RN) Average Cigarettes Smoked: > 10 per day (08/07/2016 21:21:Evie Patel RN) Advised to Stop Smoking: Yes (08/07/2016 21:21:Evie Patel RN) Cigarette Comments: Pt currently smokes around 1 pack per day. Pt advised to quit smoking extensively by this RN. Pt refused education, was not responsive to education or instruction. (08/07/2016 21:21:Evie Patel RN) Marijuana: No (08/07/2016 21:21:Evie Patel RN) Cocaine: No (08/07/2016 21:21:Evie Patel RN) Other Illicit Drugs: No (08/07/2016 21:21:Evie Patel RN) VACCINE HISTORY Influenza Vaccine: No (08/07/2016 21:21:Evie Patel RN) Pneumococcal Vaccine: No (08/07/2016 21:21:Evie Patel RN) Tetanus Vaccine: Yes (08/07/2016 21:21:Yenny Rosenthal RN) Tetanus Date: 08/10/2016 (08/07/2016 21:21:Yenny Rosenthal RN) Tdap Vaccine: Yes (08/07/2016 21:21:Yenny Rosenthal RN) Tdap Date: 08/10/2016 (08/07/2016 21:21:Yenny Rosenthal RN) Hepatitis B Vaccine: Yes (08/07/2016 21:21:Evie Patel RN) Natural Remedy Consultant: [facility] (08/07/2016 21:21:Evie Patel RN) Feeding Preference: Both (08/07/2016 21:21:Vicky Pratt RN) Benefit of Breast Feed Discussed: Yes (08/07/2016 21:21:Evie Patel RN) Circumcision: N/A (08/07/2016 21:21:Evie Patel RN) Classes Attended: No (08/07/2016 21:21:Evie Patel RN) Tubal Ligation: No (08/07/2016 21:21:Evie Patel RN) Tubal Authorization Signed: N/A (08/07/2016 21:21:Evie Patel RN) Consent: N/A (08/07/2016 21:21:Evie Patel RN) Consent Signed: N/A (08/07/2016 21:21:Evie Patel RN) Pain Management Plans: Natural (08/07/2016 21:21:Evie aPtel RN) Plans for Labor and Delivery: None (08/07/2016 21:21:Vicky Pratt RN) Support Person: Mercedes Archibald (08/07/2016 21:21:Evie Patel RN) Support Person Relationship: Mother (08/07/2016 21:21:Evie Patel RN) Cultural/Spritual Practice: No (08/07/2016 21:21:Evie Patel RN) Spir/Cult Dietary Needs: No (08/07/2016 21:21:Evie Patel RN) LIVING SITUATION/DISCHARGE PLAN Living Arrangements: House (08/07/2016 21:21:Evie Patel RN) Adequate Access to:: Electric; Heat; Refrigeration; Plumbing/Running water; Phone; Transportation (08/07/2016 21:21:Evie Patel RN) WIC Program: Yes (08/07/2016 21:21:Evie Patel RN) Currently Using Commun Resources: Yes (08/07/2016 21:21:Evie Patel RN) Specify Current Resource Used: Medicaid (08/07/2016 21:21:Evie Patel RN) Outside Agency/Power Nut Runner Operator: Yes (08/07/2016 21:21:Evie Patel RN) Specify Agency/ Power Nut Runner Operator: Dina Holloway (08/07/2016 21:21:Vicky Pratt RN) Car Seat for Discharge: Yes (08/07/2016 21:21:Evie Patel RN) Adoption Requested: Yes (08/07/2016 21:21:Evie Patel RN) Agency/Agent Handling Adoption: Pt states that she is signing custody over to her mother. (08/07/2016 21:21:Evie Patel RN) Pt Contact w/infant Post : N/A (08/07/2016 21:21:Vicky Pratt RN) LABS Blood Type: A Positive (08/07/2016 21:21:Philly Wright RN) Antibody Screen: Negative (08/07/2016 21:21:Philly Wright RN) Rho(G) this : Not Applicable (08/07/2016 21:21:Philly Wright RN) Hemoglobin: 11.3 L (11/13/2016 13:01:QS system process) Hematocrit: 33.0 L (11/13/2016 13:01:QS system process) MCV: 93 (11/13/2016 13:01:QS system process) Group Beta Strep: negative (08/07/2016 21:21:Niesha Horton RN) Gonorrhea: Negative (08/07/2016 21:21:Vicky Pratt RN) Chlamydia: Negative (08/07/2016 21:21:Vicky Pratt RN) RPR/VDRL: Nonreactive (08/07/2016 21:21:Philly Wright RN) HIV Exposure Test: Negative (08/07/2016 21:21:Vicky Pratt RN) HIV Results: Negative (08/07/2016 21:21:Philly Wright RN) Hepatitis B: Negative (08/07/2016 21:21:Philly Wright RN) Rubella: Non-Immune (08/07/2016 21:21:Philly Wright RN) Rubella Titer: 0.95 (08/07/2016 21:21:Philly Wright RN) OB/PREVIOUS HISTORY Previous Procedures: Ultrasound; NST (08/07/2016 21:21:Evie Patel RN) Current Procedures: Ultrasound; NST (08/07/2016 21:21:Evie Patel RN) History of Previous : No (08/07/2016 21:21:Evie Patel RN) History of Gestational Diabetes: No (08/07/2016 21:21:Eive Patel RN) History of PIH: No (08/07/2016 21:21:Evie Patel RN) History of Incompetent Cervix: No (08/07/2016 21:21:Evie Patel RN) History of Placenta Previa/Abrup: Yes (08/07/2016 21:21:Evie Patel RN) History of Macrosomia: No (08/07/2016 21:21:Evie Patel RN) History of IUGR: No (08/07/2016 21:21:Evie Patel RN) History of Hemorrhage: No (08/07/2016 21:21:Evie Patel RN) History of Loss/Stillborn: No (08/07/2016 21:21:Evie Patel RN) History of : No (08/07/2016 21:21:Evie Patel RN) History of D (Rh) Sensitization: No (08/07/2016 21:21:Evie Patel RN) History Recurrent Loss/Stillborn: No (08/07/2016 21:21:Evie Patel RN) History Depression/PP Depression: Yes (08/07/2016 21:21:Evie Patel RN) History of Uterine Anomaly/TERESA: No (08/07/2016 21:21:Evie Patel RN) History of Infertility: No (08/07/2016 21:21:Evie Patel RN) History of ART Treatment: No (08/07/2016 21:21:Evie Patel RN) History of TERESA: No (08/07/2016 21:21:Evie Patel RN) Comments Obstetrical History: G1: 04/2011 6lb 10oz baby boy 39 wks 2 days G2: Current, Late PNC (08/07/2016 21:21:Vicky Pratt RN) MEDICAL HISTORY Med Hx Diabetes: No (08/07/2016 21:21:Evie Patel RN) Med Hx Hypertension: No (08/07/2016 21:21:Evie Patel RN) Med Hx Heart Disease: No (08/07/2016 21:21:Evie Patel RN) Med Hx Autoimmune Disorder: No (08/07/2016 21:21:Evie Patel RN) Med Hx Kidney Disease/UTI: No (08/07/2016 21:21:Evie Patel RN) Med Hx Neurologic/Epilepsy: No (08/07/2016 21:21:Evie Patel RN) Med Hx Psychiatric Disorders: Yes (08/07/2016 21:21:Evie Patel RN) Med Hx Hepatitis/Liver Disease: No (08/07/2016 21:21:Evie Patel RN) Med Hx Varicosities/Phlebitis: No (08/07/2016 21:21:Evie Patel RN) Med Hx Thyroid Dysfunction: No (08/07/2016 21:21:Evie Patel RN) Med Hx Trauma/Violence: No (08/07/2016 21:21:Evie Patel RN) Med Hx Blood Transfusion: No (08/07/2016 21:21:Evie Patel RN) Med Hx Pulmonary (Asthma,TB): No (08/07/2016 21:21:Evie Patel RN) Med Hx Breast: No (08/07/2016 21:21:Evie Patel RN) Med Hx PLASTIC TOOL MAKER Surgery: No (08/07/2016 21:21:Evie Patel RN) Med Hx Hospitalization/Surgery: No (08/07/2016 21:21:Evie Patel RN) Med Hx Anesthetic Complications: No (08/07/2016 21:21:Evie Patel RN) Med Hx Abnormal Pap Smear: No (08/07/2016 21:21:Evie Patel RN) Other Medical Diseases: Yes (08/07/2016 21:21:Vicky Pratt RN) Med Hx Significant Family Hx: No (08/07/2016 21:21:Evie Patel RN) Details of Med/Surg Hx: Psychiatric/Depression: Bipolar, ADHD, ODD, depression; 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 (08/07/2016 21:21:Vicky Pratt RN) INFECTIOUS HISTORY Inf Hx Gonorrhea: No (08/07/2016 21:21:Evie Patel RN) Inf Hx Chlamydia: Yes (08/07/2016 21:21:Vicky Pratt RN) Inf Hx Syphilis: No (08/07/2016 21:21:Evie Patel RN) Inf Hx HIV/AIDS: No (08/07/2016 21:21:Evie Patel RN) Inf Hx Human Papilloma Virus: No (08/07/2016 21:21:Evie Patel RN) Inf Hx Pt/Partner Genital Herpes: Yes (08/07/2016 21:21:Evie Patel RN) Inf Hx Tuberculosis/Exposure: No (08/07/2016 21:21:Evie Patel RN) Inf Hx Hepatitis B,C: No (08/07/2016 21:21:Evie Patel RN) Inf Hx Rash or Viral Illness: No (08/07/2016 21:21:Evie Patel RN) Details of Infectious Hx: Chlamydia: 2012 Herpes: Pt states that she went to health dept where they told her she had genital herpes, pt does not know if she was treated. No Valtrex. (08/07/2016 21:21:Vicky Pratt RN) GENETIC HISTORY Gen Hx Age >=35 at SERA: No (08/07/2016 21:21:Evie Patel RN) Gen Hx Thalassemia: No (08/07/2016 21:21:Evie Patel RN) Gen Hx Congenital Heart Defect: No (08/07/2016 21:21:Evie Patel RN) Gen Hx Neural Tube Defect: No (08/07/2016 21:21:Evie Patel RN) Gen Hx Down's Syndrome: No (08/07/2016 21:21:Evie Patel RN) Gen Hx Jake-Sachs: No (08/07/2016 21:21:Evie Patel RN) Gen Hx Rivas: No (08/07/2016 21:21:Evie Patel RN) Gen Hx Familial Dysautonomia: No (08/07/2016 21:21:Evie Patel RN) Gen Hx Sickle Cell Disease/Trait: No (08/07/2016 21:21:Evie Patel RN) Gen Hx Hemophilia/Blood Disorder: No (08/07/2016 21:21:Evie Patel RN) Gen Hx Muscular Dystrophy: No (08/07/2016 21:21:Evie Patel RN) Gen Hx Cystic Fibrosis: No (08/07/2016 21:21:Evie Patel RN) Gen Hx Huntingtons Chorea: No (08/07/2016 21:21:Evie Patel RN) Gen Hx Mental Retardation/Autism: Yes (08/07/2016 21:21:Vicky Pratt RN) Gen Hx Tested for Fragile X: No (08/07/2016 21:21:Evie Patel RN) Gen Hx Other Inher/Chromosomal: No (08/07/2016 21:21:Evie Patel RN) Gen Hx Maternal Metabolic DO: No (08/07/2016 21:21:Evie Patel RN) Gen Hx Pt Father or FOB Defect: No (08/07/2016 21:21:Evie Patel RN) Gen Hx Other Genetic History: No (08/07/2016 21:21:Evie Patel RN) Gen Hx Drugs/Meds since LMP: No (08/07/2016 21:21:Evie Patel RN) Details of Genetic History: two nephews with autism (08/07/2016 21:21:Evie Patel RN)
--- NOTE | 2016-11-14 06:15 | L&D Care Plan ---
LD CARE PLANS Datetime Report Generated by CPN: 11/14/2016 06:15 Datetime: 11/13/2016 12:30 Pain State: Risk For (Mary Burnett RN) Related To: Labor and Delivery Process; Treatment and Procedures; Post (Mary Burnett RN) Goal(s): Patients Pain will be Assessed and Managed; Patient will Verbalize Adequate Relief of Pain or the Ability to [place] with Current Pain (Mary Burnett RN) Interventions: Assess Pain Severity on Scale of 0 (None) to 5 (Severe); Assess Type, Location and Intensity of Pain Each Time Client Reports Discomfort and Notify Provider if Unusal Pain Develops; Encourage Proper Breathing and Relaxation Techniques; Offer Alternatives Such as Repositioning, Calm Environment, Massages, Diversional Activities, Ice Pack, Splinting, and Ambulation; Administer Analgesics as Ordered; Assist with Epidural Placement as Appropriate; Evaluate Therapeutic Effectiveness of Medication and Treatments (Mary Burnett RN) Outcome: Patient will Report Absence or Relief of Pain Consistent with Established Pain Goal (Mary Burnett RN) Status: Ongoing (Mary Burnett RN) Outcome: Patient will have a Decrease in Signs and Symptoms of Discomfort (Mary Burnett RN) Status: Ongoing (Mary Burnett RN) Outcome: Pain will be Controlled During Procedures (Mary Burnett RN) Status: Ongoing (Mary Burnett RN) Anxiety State: Risk For (Mary Burnett RN) Related To: Labor and Delivery Process; Situational Crisis; Medical Interventions; Significant Life Event (Mary Burnett RN) Goal(s): Patient will have Decreased Anxiety and be able to Function at Acceptable Levels (Mary Burnett RN) Interventions: Assess Verbal and Nonverbal Behavioral Indicators of Anxiety; Assist Patient to Identify and Verbalize Symptoms of Anxiety; Identify and Demonstrate Techniques to Control Anxiety; Assist Patient with Coping Mechanisms to Manage Anxiety; Provide Theraputic Touch for the Patient; Explain to Patient, Using a Calm Reassuring Approach and Nonmedical Terms, All Activities, Procedures, and Concerns; Instruct Patient and Family about Post Discharge Care, Limitations, Symptoms to Report and Resources Available (Mary Burnett RN) Outcome: Patient will Identify, Verbalize and Demonstrate Techniques to Control Anxiety (Mary Burnett RN) Status: Ongoing (Mary Burnett RN) Outcome: Patient's Posture, Facial Expressions, Gestures and Activity Level will Reflect Decreased Anxiety (Mary Burnett RN) Status: Ongoing (Mary Burnett RN) Outcome: Patient will Verbalize a Sense of Control and/or Acceptance of the Situation (Mary Burnett RN) Status: Ongoing (Mary Burnett RN) Outcome: Patient will Identify and Utilize Support Person (Mary Burnett RN) Status: Ongoing (Mary Burnett RN) Knowledge Deficit State: Risk For (Mary Burnett RN) Related To: Labor and Delivery Process; Treatment and Procedures (Mary Burnett RN) Goal(s): Patient will Accurately Verbalize Understanding of Plan of Care and Treatment; Patient and Family will Accurately Verbalize Understanding of the Disease Process (Mary Burnett RN) Interventions: Assess Motivation and Willingness of Patient/Family to Learn; Assess Preferred Learning Mode: One to One Instruction, Reading, Videos, Group Discussion or Demonstration; Assess Barriers to Learning: Pain, Emotional State, Language Barrier, Cognitive Impairment, Visual or Hearing Deficits; Assess Patient and Family Knowledge of Disease Process, Medications and Treatment; Discuss Therapy and/or Treatment Options, Describe Rationale Behind Management, Therapy and Treatment Recommendations; Instruct Patient and Family on Signs and Symptoms to Report; Instruct Patient and Family on Medication Effects and Side Effects; Provide Appropriate and Timely Education Using Multiple Techniques; Provide Patient and Family with Support Group Information and Resources; Give Clear and Thorough Explanations and Demonstrations (Mary Burnett RN) Outcome: Patient and Family will Verbalize Understanding of Condition, Treatment and Signs and Symptoms to Report (Mary Burnett RN) Status: Ongoing (Mary Burnett RN) Outcome: Patient will Identify Perceived Learning Needs and Express Motivation to Learn (Mary Burnett RN) Status: Ongoing (Mary Burnett RN) Outcome: Patient will Verbalize Understanding of Desired Content, and/or Performs Desired Skill Prior to Discharge (Mary Burnett RN) Status: Ongoing (Mary Burnett RN) Infection State: Risk For (Mary Burnett RN) Related To: Surgical Procedures; Premature/Prolonged Rupture of Membranes; Invasive Procedures (Mary Burnett RN) Goal(s): The Patient will be Free of Infection, Vital Signs Stable and Lab Work within Normal Parameters (Mary Burnett RN) Interventions: Instruct and Reinforce Proper Handwashing, Hygiene, and Care Techniques to Patient and Family; Monitor Vital Signs; Monitor Patient for the Following Signs of Infection: Fever, Abdominal Tenderness, Unusual Discharge; Monitor Aminiotic Fluid, Urine and Lochia for Color and Odor; Observe Wounds, Incisions and Invasive Line Sites for Redness, Drainage and Edema; Assess IV Sites per Hospital Policy; Monitor Lab and Test Results and Notify Provider of Abnormal Findings; Assess Nutritional Status and Promote Good Nutrition (Mary Burnett RN) Outcome: Patient will Remain Free of Infection (Mary Burnett RN) Status: Ongoing (Mary Burnett RN) Outcome: Infection will be Recognized Early to Allow for Prompt Treatment (Mary Burnett RN) Status: Ongoing (Mary Burnett RN) Outcome: Patient will have Vital Signs Within Expected Range (Mary Burnett RN) Status: Ongoing (Mary Burnett RN) Fluid Volume State: Risk For (Mary Burnett RN) Related To: Prolonged Labor or Induction; Anesthesia (Mary Burnett RN) Goal(s): Patient will Achieve and Maintain a Balanced Fluid Volume Status; Hemodynamically Stable (Mary Burnett RN) Interventions: Monitor Vital Signs; Auscultate Breath Sounds; Monitor Patient for Skin Turgor, Mucous Membranes, Dry Skin, Weakness, Headaches and Confusion; Provide Oral Fluids as Ordered; Initiate and Maintain Intravenous Fluids as Ordered; Monitor Intake and Output as Indicated Per Patient Status; Accurately Measure Blood Loss; Monitor Lab and Test Results as Obtained and Notify Provider of Abnormal Findings; Monitor Patient's Weight (Mary Burnett RN) Outcome: Patient will have Clear Lung Sounds (Mary Burnett RN) Status: Ongoing (Mary Burnett RN) Outcome: Patient will have Vital Signs within Expected Range (Mary Burnett, RN) Status: Ongoing (Mary Burnett RN) Outcome: Urine Output will be within Expected Range (Mary Burnett, RN) Status: Ongoing (Mary Burnett, RN) Outcome: Patient will have Minimal Generalized or Upper Extremity Edema (Mary Burnett, RN) Status: Ongoing (Mary Burnett, RN) Injury State: Risk For (Mary Burnett RN) Related To: Labor and Delivery Process (Mary Burnett RN) Goal(s): Patient will Remain Free from Injury (Mary Burnett RN) Interventions: Monitoring as per Hospital Protocol; Assess Neurological Status; Perform Risk Assessment of Patients with Induction and ; Perform Fall Risk Assessment and Prevention per Hospital Protocol; Perform DVT Risk Assessment and Prophylaxis per Hospital Protocol; Ensure that Oxygen, Suction, and Resuscitation Medications and Equipment are Readily Available; Confirm Patient ID Prior to Procedure(s) and Medication Administration per Hospital Policy (Mary Burnett RN) Outcome: Successful Fall Risk Prevention (Mary Burnett RN) Status: Ongoing (Mary Burnett RN) Outcome: Patient will Deliver Infant without Adverse [place] (Mary Burnett RN) Status: Ongoing (Mary Burnett RN) Outcome: Patient's Neurological Status will Remain Stable (Mary Burnett RN) Status: Ongoing (Mary Burnett RN) Impaired Skin Integrity State: Risk For (Mary Burnett RN) Related To: Vaginal Delivery; Prolonged Bedrest; Invasive Procedures (Mary Burnett, RN) Goal(s): Patient will Maintain Optimal Skin Integrity, Free of Breakdown, Injury or Infection (Mary Burnett RN) Interventions: Complete Screening for Pressure Ulcer Risk and Initiate Protocol per Hospital Policy; Monitor Site of Skin Impairment for Color Changes, Redness, Swelling, Warmth, Pain or Other Signs of Infection; Encourage and Assist with Position Changes; Monitor Patient's Mobility Status; Provide Adequate Nutrition and Fluids; Teach Patient Appropriate Hygienic Care; Teach Patient/Family Skin Care Management (Mary Burnett, RN) Outcome: Patient will not have Evidence of Injury Such as Skin Breakdown, Scrapes, Cuts, or Bruising (Mary Burnett, RN) Status: Ongoing (Mary Burnett RN) Outcome: Patient will Report Any Altered Sensation or Pain at Site of Skin Impairment (Mary Burnett RN) Status: Ongoing (Mary Burnett, RN) Outcome: Patients Incisions and Wounds will be without Signs or Symptoms of Infection (Mary Burnett RN) Status: Ongoing (Mary Burnett RN) Outcome: Patient will Demonstrate Understanding of Plan to Heal Skin and Prevent Reinjury and Verbalize Risk Factors (Mary Burnett RN) Status: Ongoing (Mary Burnett RN) Parenting Impaired State: Not Applicable (Mary Burnett RN) Nutrition State: Risk For (Mary Burnett RN) Related To: ; Nausea or Vomiting; Prolonged Bedrest (Mary Burnett RN) Goal(s): Patient will have an Intake of Nutrients Sufficient to Meet Metabolic Needs (Mary Burnett RN) Interventions: Nutritional Screening and Assessment per Hospital Policy; Consult Desktop Engineer for Further Assessment and Recommendations Regarding Food Preferences and Nutritional Support; Allow Patient to Plan and Order Diet when Possible; Monitor Laboratory Values That Indicate Nutritional Well-being; Consult Core Machine Operator for Nutritional Support Regarding Requirements; Document Actual Weight Initially and Weekly (Do Not Estimate); Encourage Patient Participation in Maintaining a Food Log as Indicated; Educate Patient on the Importance of Maintaining an Adequate Caloric Intake (Mary Burnett RN) Outcome: Patient will Receive Adequate Calories and Fluid Volume to Meet Metabolic Needs (Mary Burnett RN) Status: Ongoing (Mary Burnett RN) Outcome: Patient will Select Foods or Meals that Support Adequate Nutrition (Mary Burnett, RN) Status: Ongoing (Mary Burnett, RN) Grieving State: Not Applicable (Maryemma Burnett, RN) Additional Care Plan State: Not Applicable (Mary Burnett, RN)
[2016-11-14 07:52] LABS: HEMATOCRIT 33.8 % (36.0-47.0); HEMOGLOBIN 11.4 g/dL (12.0-15.5); HGB HCT DIFFERENCE 0.4; MEAN CORPUSCULAR HGB CONC 33.8 g/dL (32.0-36.0); MEAN CORPUSCULAR VOLUME 95 fl (80-97); RED BLOOD COUNT 3.57 10^6/uL (3.72-5.28); RED CELL DISTRIBUTION WIDTH 13.1 % (11.5-14.0)
--- NOTE | 2016-11-14 09:13 | PDOC PROGRESS REPORT ---
Subjective-OB Subjective: Post Delivery Day: 25 year old. Denies any needs at this time Physical Exam (OB) Vital Signs: Temp Pulse Resp BP Pulse Ox 97.6 F 54 L 16 97/57 L 100 11/14/16 08:04 11/14/16 08:04 11/14/16 08:04 11/14/16 08:04 11/14/16 08:04 Intake & Output 11/13/16 11/14/16 11/15/16 06:59 06:59 06:59 Weight 90.55 kg - Lochia Lochia Amount: Small 10-25 ml Lochia Color: Rubra/Red - Abdomen Description: Soft, Round Hernia Present: No Bowel Sounds: Normoactive Flatus Presence: Present Stool: No Fundal Description: Firm, Midline Fundal Height: u/u - u/2 Objective-Diagnostic Laboratory: 11/14/16 07:22 11/13/16 11/13/16 11/13/16 11:59 13:01 13:01 WBC 14.6 H RBC 3.53 L Hgb 11.3 L Hct 33.0 L MCV 93 MCH 31.9 MCHC 34.1 RDW 13.1 Plt Count 133 L Seg Neutrophils % 77.3 Lymphocytes % 15.0 Monocytes % 6.9 Eosinophils % 0.5 Basophils % 0.3 Absolute Neutrophils 11.3 H Absolute Lymphocytes 2.2 Absolute Monocytes 1.0 Absolute Eosinophils 0.1 Absolute Basophils 0.0 Urine Color YELLOW Urine Appearance SLIGHTLY-CLOUDY Urine pH 6.0 Ur Specific [place] 1.018 Urine Protein NEGATIVE Urine Glucose (UA) NEGATIVE Urine Ketones NEGATIVE Urine Blood MODERATE H Urine Nitrite NEGATIVE Ur Leukocyte Esterase TRACE H Blood Type A POSITIVE Antibody Screen NEGATIVE 11/14/16 07:22 WBC 13.0 H RBC 3.57 L Hgb 11.4 L Hct 33.8 L MCV 95 MCH 32.0 MCHC 33.8 RDW 13.1 Plt Count 128 L Seg Neutrophils % Lymphocytes % Monocytes % Eosinophils % Basophils % Absolute Neutrophils Absolute Lymphocytes Absolute Monocytes Absolute Eosinophils Absolute Basophils Urine Color Urine Appearance Urine pH Ur Specific [place] Urine Protein Urine Glucose (UA) Urine Ketones Urine Blood Urine Nitrite Ur Leukocyte Esterase Blood Type Antibody Screen
[2016-11-14] MEDS: PRENATAL VITAMIN W-O CA NO5/FE FUMARATE/FA CAPSULE PO SCH (10:19)
[2016-11-14] MEDS: FERROUS SULFATE 325 MG TABLET PO SCH ×2 (10:19→17:17)
[2016-11-14] MEDS: DOCUSATE SODIUM 100 MG CAPSULE PO SCH ×2 (10:20→17:17)
[2016-11-14] MEDS: SENNOSIDES/DOCUSATE 8.6-50 MG 1 EACH TABLET PO SCH (10:20)
[2016-11-14] MEDS: NICOTINE 21 MG/24 HR PATCH.TD24 TD SCH (21:06)
[2016-11-15] MEDS: IBUPROFEN 800 MG TABLET PO SCH (05:00)
[2016-11-15 08:31] VITALS: BP 109/66
[2016-11-15] MEDS: DOCUSATE SODIUM 100 MG CAPSULE PO SCH (09:16)
[2016-11-15] MEDS: FERROUS SULFATE 325 MG TABLET PO SCH (09:16)
[2016-11-15] MEDS: PRENATAL VITAMIN W-O CA NO5/FE FUMARATE/FA CAPSULE PO SCH (09:16)
[2016-11-15] MEDS: SENNOSIDES/DOCUSATE 8.6-50 MG 1 EACH TABLET PO SCH (09:16)
--- NOTE | 2016-11-15 10:11 | PDOC DISCHARGE SUMMARY ---
Final Diagnosis Discharge Date: 11/15/16 - Final Diagnosis (1) Delivery normal Is this a current diagnosis for this admission?: Yes (2) Late onset care Is this a current diagnosis for this admission?: Yes Discharge Data - Discharge Medication Home Medications: Clindamycin HCl [Cleocin Hcl] 300 mg PO QID #28 capsule 07/26/14 Hydrocodone/Acetaminophen [Randall 5-325 Tablet] 1 each PO Q4 PRN #15 tablet 07/26 Cephalexin Monohydrate [Keflex 500 mg Capsule] 500 mg PO TID #15 capsule Ibuprofen [Motrin 600 Mg Tablet] 600 mg PO Q6H PRN #30 tablet 04/19/15 Ibuprofen [Motrin 800 mg Tablet] 800 mg PO TID #30 tablet 07/15/15 Vit #76/Iron,Carb/FA [Pnv 29-1 Tablet] 1 tab PO DAILY 08/07/16 Reason(s) for Admission: Onset of Labor Procedures: NST Intrapartum Procedure(s): Spontaneous Vaginal Delivery - Diagnosis Test Laboratory: Temp Pulse Resp BP Pulse Ox 98.0 F 48 L 16 109/66 98 11/15/16 08:01 11/15/16 08:01 11/15/16 08:01 11/15/16 08:01 11/15/16 08:01 11/13/16 11/13/16 11/14/16 11:59 13:01 07:22 RBC 3.53 L 3.57 L Hgb 11.3 L 11.4 L Hct 33.0 L 33.8 L Urine Opiates Screen NEGATIVE - Discharge information/Instructions Discharge Activity: Activity As Tolerated, Pelvic Rest Discharge Diet: Regular Disposition: HOME, SELF-CARE Follow up with: [facility] in: 4, Weeks
== END 2016-11-15 12:30 | disposition home or self-care (01) | DRG 774 ==
LOC: LC 11:35 → LR 12:57 → 2S 18:10
PROVIDERS: ADMIT Obstetrics & Gynecology; ATTEND Obstetrics & Gynecology
PROC: 10E0XZZ Delivery of Products of Conception, External Approach (ICD-10-PCS; principal; 2016-11-13)
PROC: 3E0234Z Introduction of Serum, Toxoid and Vaccine into Muscle, Percutaneous Approach (ICD-10-PCS; 2016-11-15)
DX: O99.334 Smoking (tobacco) complicating childbirth (principal); O98.32 Other infections with a predominantly sexual mode of transmission complicating childbirth; A60.00 Herpesviral infection of urogenital system, unspecified; F17.210 Nicotine dependence, cigarettes, uncomplicated; O99.344 Other mental disorders complicating childbirth; F31.9 Bipolar disorder, unspecified; O09.33 Supervision of pregnancy with insufficient antenatal care, third trimester; Z3A.40 40 weeks gestation of pregnancy; Z37.0 Single live birth; Z23 Encounter for immunization
CPT/HCPCS: 36415; 80307; 81005; 84112; 85025; 85027; 86592; 86850; 86900; 86901; 88307; 90707; 94760; J2590; J3490

== ENCOUNTER 2017-04-09 15:39 | Emergency (ER) | payer MEDICAID ==
[2017-04-09 16:30] VITALS: BP 112/65
[2017-04-09] MEDS ORDERED: DEXAMETHASONE SOD PHOS INJ 10 MG/1 ML VIAL IM ONE (17:12)
[2017-04-09] MEDS ORDERED: KETOROLAC TROMETHAMINE 60 MG/2 ML SDV IM ONE (17:12)
--- NOTE | 2017-04-09 17:15 | ER Document Report ---
ED Neck/Back Problem - General Chief Complaint: Back Pain Stated Complaint: BACK PAIN Time Seen by Provider: 04/09/17 16:50 Mode of Arrival: Ambulatory Information source: Patient Notes: 26-year-old female presents to ED for back pain from about the bra line down to the coccyx area. She states his pain is been since October when she had epidural for her childbirth. She denies any recent back injuries recent falls. She denies any loss of control of bowel bladder no loss of sensation no loss or change in muscle control. Patient has a history of anxiety depression bipolar schizophrenia personality disorder and dislocated hips at . TRAVEL OUTSIDE OF THE [place] IN LAST 30 DAYS: No - HPI Patient complains to provider of: Upper back, Lower back Onset: - October Onset: Chronic Timing: Still present Quality of pain: Sharp Severity: Severe Pain Level: 5 Recent injury: No Associated symptoms: Like prior neck/back pain, Lower back pain, Upper back pain , Other - states sometimes is not able to grasp with right hand. denies: Constipation, Incontinence, Motor loss, Numbness/tingling, Radiation to leg, Sensory loss, Unable to urinate Exacerbated by: Nothing Relieved by: Nothing Similar symptoms previously: Yes Recently seen / treated by doctor: No - Related Data Allergies/Adverse Reactions: latex [Latex] Allergy (Intermediate, Verified 11/13/16 12:16) rash Past Medical History - General Information source: Patient - Social History Smoking Status: Current Every Day Smoker Cigarette use (# per day): Yes - 1/2 ppd Chew tobacco use (# tins/day): No Smoking Education Provided: Yes - less than 2 min Frequency of alcohol use: None Drug Abuse: None Occupation: none Lives with: Friend Family History: Arthritis - RA mother and son, COPD, DM, Hypertension, Malignancy, Thyroid Disfunction - Past Medical History Cardiac Medical History: Reports: None Pulmonary Medical History: Reports: None EENT Medical History: Reports: None Neurological Medical History: Reports: None Endocrine Medical History: Reports: None Renal/ Medical History: Reports: None Malignancy Medical History: Reports: None GI Medical History: Reports: None Musculoskeltal Medical History: Reports Hx Musculoskeletal Deformity, Reports Other - back pain since childbirth oct 2016 Skin Medical History: Reports None Psychiatric Medical History: Reports: Hx Anxiety, Hx Attention Deficit Hyperactivity Disorder, Hx Bipolar Disorder, Hx Borderline Personality Disorder , Hx Depression, Hx Schizophrenia Traumatic Medical History: Reports: None Infectious Medical History: Reports: None Surgical Hx: Negative Past Surgical History: Reports: None - Immunizations Immunizations up to date: Yes Hx Diphtheria, Pertussis, Tetanus Vaccination: Yes Review of Systems - Review of Systems Constitutional: No symptoms reported EENT: No symptoms reported Cardiovascular: No symptoms reported Respiratory: No symptoms reported Gastrointestinal: No symptoms reported Genitourinary: No symptoms reported Female Genitourinary: No symptoms reported Musculoskeletal: Back pain Skin: No symptoms reported Hematologic/Lymphatic: No symptoms reported Neurological/Psychological: denies: Gait changes, Loss of power, Headaches, Numbness, Tingling -: Yes All other systems reviewed and negative Physical Exam - Vital signs Vitals: Temp Pulse Resp BP Pulse Ox 98.5 F 63 20 112/65 97 04/09/17 16:28 04/09/17 16:28 04/09/17 16:28 04/09/17 16:28 04/09/17 16:28 Interpretation: Normal - General General appearance: Appears well, Alert - HEENT Head: Normocephalic, Atraumatic Eyes: Normal Pupils: PERRL - Respiratory Respiratory status: No respiratory distress Chest status: Nontender Breath sounds: Normal Chest palpation: Normal - Cardiovascular Rhythm: Regular Heart sounds: Normal auscultation Murmur: No - Abdominal Inspection: Normal Distension: No distension Bowel sounds: Normal Tenderness: Nontender Organomegaly: No organomegaly - Back Back: Normal, Tender - Bra line to coccyx, Vertebra tenderness - Bra line to coccyx. No: Deformity/step-off, CVA tenderness, Scars, Scoliosis, Wounds - Extremities General upper extremity: Normal inspection, Nontender, Normal color, Normal ROM , Normal temperature General lower extremity: Normal inspection, Nontender, Normal color, Normal ROM , Normal temperature, Normal weight bearing. No: Piero's sign - Neurological Neuro grossly intact: Yes Cognition: Normal Orientation: AAOx4 [place] Coma Scale Eye Opening: Spontaneous [place] Coma Scale Verbal: Oriented [place] Coma Scale Motor: Obeys Commands Gino Coma Scale Total: 15 Speech: Normal Cranial nerves: Normal Cerebellar coordination: Normal Motor strength normal: LUE, RUE, LLE, RLE Additional motor exam normals: Equal retail beauty specialist Babinski reflex: Normal (flexor plantar) Sensory: Normal Biceps - Reflex grade: 2 = Normal Triceps - Reflex grade: 2 = Normal Brachioradialis - Reflex grade: 2 = Normal Knee - Reflex grade: 2 = Normal Ankle - Reflex grade: 2 = Normal - Psychological Associated symptoms: Normal affect, Normal mood - Skin Skin Temperature: Warm Skin Moisture: Dry Skin Color: Normal Course - Re-evaluation Re-evalutation: 04/09/17 17:18 Discussed history and physical with Dr. Lind. He states patient needs to be treated with anti-inflammatories and discharged home to follow-up with a back specialist. Stated no imaging was necessary at this time. Patient was ordered Toradol and Decadron and discharged home with ibuprofen and back exercises and instructions to follow-up with her primary doctor to get a referral to a back specialist. 04/09/17 17:24 Patient refused the Toradol and Decadron shot. She has ibuprofen prescription in her purse that she can use for her pain - Vital Signs Vital signs: Temp Pulse Resp BP Pulse Ox 98.5 F 63 12 112/65 97 04/09/17 16:28 04/09/17 16:28 04/09/17 17:21 04/09/17 16:28 04/09/17 16:28 Discharge - Discharge Clinical Impression: Chronic back pain greater than 3 months duration Condition: Stable Disposition: HOME, SELF-CARE Additional Instructions: Chronic Back Pain Chronic back pain (pain persisting longer than three months) is a common problem. A medical evaluation can look for herniated disc, arthritis, osteoporosis, tumors, and infections. But at least half the time, there's no obvious treatable cause. Anxiety and depression tend to worsen back pain. Ibuprofen or other anti-inflammatory medicine can help. A heating pad, used for 15-20 minutes at a time, can ease pain. For this type of back pain, narcotic medicines should be avoided. Muscle relaxers are rarely helpful unless you're having spasms. Activity is important. Find an aerobic exercise program that your back can tolerate. Too much rest makes back pain worse. Specific back exercises are usually prescribed to strengthen the back and abdominal muscles. Often, a physical therapist can help. Avoid heavy lifting, working while bent over, or standing with both knees straight. Most back pain patients do better with a firm mattress. If new symptoms of a "herniated disc" (radiation of pain, numbness, or tingling down the back of the leg or weakness in the leg) occur, you should be re-examined. Chronic Pain Control Stress, inactivity, and depression make pain more severe regardless of the cause of the pain. Stress and poor physical condition can cause pain such as headaches and backache. Relaxation: Rest in a quiet place with your eyes closed for 20 minutes twice daily. Concentrate on a pleasant image, or simply "feel" your breathing. Clear your mind. Stress management: Deal with your "stressors." Either take action, or eliminate the stressor from your life. Don't let things hang over you. Accept those things you can't change. Nutrition: Eat small, balanced meals -- don't skip, don't overeat. Meals should be high-carbohydrate, low-sugar, low-fat. Exercise: Exercise helps painful conditions and eases stress. Get 30 minutes of moderate exercise, five days a week. Do an activity that does not flare your pain. Precautions: Pain which continues to disrupt daily activities, or which changes in nature, requires a medical evaluation. Pain Clinic referral is available. We do not manage chronic pain in the Emergency Department. We will try to appropriately help you through an acute flare of your chronic painful condition , but for on-going chronic pain that does not improve, you will need to see your private doctor or paint prepper. We do not provide repeated medication management of chronic painful conditions. If you wish, we can provide the name of local pain management physicians. Anti-Inflammatory Medication You have received a prescription for an antiinflammatory agent. This is an excellent, safe drug for pain control. In addition, it has potent antiinflammatory effects which are beneficial, especially in the treatment of injuries, arthritis, or tendonitis. It's best to take this medicine with food. Persons with ulcer disease or allergy to aspirin should notify their physician of this before taking this drug. Take the medication exactly as prescribed. Don't take additional doses unless instructed to do so by your doctor. If you develop wheezing, shortness of breath, hives, faintness, stomach pain, vomiting, or dark black stools, return for re-evaluation at once. You will need to follow up with your primary doctor to get a referral for a back specialist for your back pain. Medicaid requires that she get a referral from your primary physician. FOLLOW-UP CARE: If you have been referred to a physician for follow-up care, call the physician s office for an appointment as you were instructed or within the next two days. If you experience worsening or a significant change in your symptoms, notify the physician immediately or return to the Emergency Department at any time for re-evaluation. Forms: Smoking Cessation Education Referrals: THIERNO LEE MD [Primary Care Provider] - Follow up as needed
== END 2017-04-09 17:25 | disposition home or self-care (01) ==
LOC: ER 15:39
DX: G89.29 Other chronic pain (principal); M54.9 Dorsalgia, unspecified; F17.210 Nicotine dependence, cigarettes, uncomplicated; Z91.040 Latex allergy status
CPT/HCPCS: 99283

== ENCOUNTER → 2017-05-16 | Outpatient (CLI) | payer MEDICAID ==
--- NOTE | 2017-05-16 22:15 | RADIOLOGY REPORT (SQ) ---
EXAM DESCRIPTION: L SPINE WHOLE COMPLETED DATE/TIME: 05/16/2017 6:24 pm REASON FOR STUDY: ACUTE MIDLINE LOW BACK PAIN WITHOUT SCIATICA M54.5 LOW BACK PAIN COMPARISON: 12/20/2015 NUMBER OF VIEWS: Five views including obliques. TECHNIQUE: AP, lateral, oblique, and sacral radiographic images acquired of the lumbar spine. LIMITATIONS: None. FINDINGS: MINERALIZATION: Normal. SEGMENTATION: Normal. No transitional anatomy. ALIGNMENT: Normal. VERTEBRAE: Maintained height. No fracture or worrisome bone lesion. DISCS: Preserved height. No significant osteophytes or end plate irregularity. POSTERIOR ELEMENTS: Pedicles and facets are intact. No pars defect or posterior arch defects. HARDWARE: None in the spine. PARASPINAL SOFT TISSUES: Normal. PELVIS: Intact as visualized. No fractures or worrisome bone lesions. SI joints intact. OTHER: No other significant finding. IMPRESSION: NORMAL 5 VIEW LUMBAR SPINE. TECHNICAL DOCUMENTATION: JOB ID: [id number] [employer]- All Rights Reserved
== END ==
LOC: RAD 17:57
PROVIDERS: ATTEND Family Medicine
DX: M54.5 Low back pain (principal)
CPT/HCPCS: 72110

== ENCOUNTER 2017-05-18 22:40 | Emergency (ER) | payer MEDICAID ==
[2017-05-19 00:15] VITALS: BP 123/74
== END 2017-05-19 00:08 | disposition left against medical advice (07) ==
LOC: ER 22:40
DX: Z53.9 Procedure and treatment not carried out, unspecified reason (principal); M25.512 Pain in left shoulder; M54.9 Dorsalgia, unspecified

== ENCOUNTER 2017-06-05 15:18 | Emergency (ER) | payer MEDICAID ==
--- NOTE | 2017-06-05 16:35 | ER Document Report ---
HPI - HPI Patient complains to provider of: dysuria Pain Level: 5 Context: 26 yo female c/o dysuria, urgency, frequency, small voids x 2 weeks. no relief with OTC AZO. no fever, n/v. + hx/o UTI Associated Symptoms: None Exacerbated by: Denies Relieved by: Denies Similar symptoms previously: Yes Recently seen / treated by doctor: No - ROS Systems Reviewed and Negative: Yes All other systems reviewed and negative - REPRODUCTIVE Reproductive: DENIES: : - DERM Skin Color: Normal Past Medical History - General Information source: Patient - Social History Smoking Status: Current Every Day Smoker Chew tobacco use (# tins/day): No Frequency of alcohol use: None Drug Abuse: None Family History: Arthritis - RA mother and son, COPD, DM, Hypertension, Malignancy, Thyroid Disfunction Patient has suicidal ideation: No Patient has homicidal ideation: No - Past Medical History Cardiac Medical History: Denies: Hx Coronary Artery Disease, Hx Hypertension Pulmonary Medical History: Denies: Hx Asthma Endocrine Medical History: Denies: Hx Diabetes Mellitus Type 1, Hx Diabetes Mellitus Type 2 Renal/ Medical History: Denies: Hx Peritoneal Dialysis Musculoskeltal Medical History: Reports Hx Musculoskeletal Deformity Psychiatric Medical History: Reports: Hx Anxiety, Hx Attention Deficit Hyperactivity Disorder, Hx Bipolar Disorder, Hx Borderline Personality Disorder , Hx Depression, Hx Schizophrenia - Immunizations Immunizations up to date: Yes Hx Diphtheria, Pertussis, Tetanus Vaccination: Yes Vertical Provider Document - CONSTITUTIONAL Agree With Documented VS: Yes Exam Limitations: No Limitations General Appearance: WD/WN, No Apparent Distress - INFECTION CONTROL TRAVEL OUTSIDE OF THE [place] IN LAST 30 DAYS: No - HEENT HEENT: Atraumatic, PERRLA - NECK Neck: Normal Inspection, Supple - CARDIOVASCULAR Cardiovascular: Regular Rate, Regular Rhythm - GI/ABDOMEN Gastrointestinal: Abdomen Soft, Abdomen Tender - mild suprapubic tenderness. negative: Abdominal Guarding, Abdominal Rebound, Abnormal Bowel Sounds - BACK Back: Abnormal Inspection - mild midline lumbar tenderness. no CVAT. negative : CVA Tenderness-Right, CVA Tenderness-Left - MUSCULOSKELETAL/EXTREMETIES Musculoskeletal/Extremeties: MAEW, FROM, Non-Tender - NEURO Level of Consciousness: Awake, Alert, Appropriate - DERM Integumentary: Warm, Dry, No Rash Course - Re-evaluation Re-evalutation: 06/05/17 16:35 H&P c/w uncomplicated cystitis. urine culture is pending. pt is stable for discharge Discharge - Discharge Clinical Impression: Dysuria Condition: Stable Disposition: HOME, SELF-CARE Instructions: Urinary Tract Infection ([facility]), Antibiotic Therapy ([facility]), Urinary Anesthetic Agent ([facility]) Additional Instructions: push fluids take all antibiotic as prescribed urine culture is pending. if any further treatment is needed we will call you follow up with primary care if symptoms persist return to ER for any worsening Prescriptions: Nitrofurantoin Macrocrystal [Macrodantin] 100 mg PO QID #28 capsule Phenazopyridine HCl [Pyridium 200 mg Tablet] 200 mg PO TID #15 tablet Referrals: THIERNO LEE MD [Primary Care Provider] - Follow up as needed
[2017-06-05 16:45] VITALS: BP 118/80
[2017-06-05 17:22] LABS: APPEARANCE,URINE CLOUDY; BILIRUBIN,URINE NEGATIVE (NEGATIVE); GLUCOSE, URINE NEGATIVE (NEGATIVE); KETONES,URINE NEGATIVE (NEGATIVE); LEUKOCYTE ESTERASE,URINE LARGE (NEGATIVE); NITRITE,URINE NEGATIVE (NEGATIVE); PROTEIN,URINE 100 mg/dL (NEGATIVE); URINE SPECIFIC GRAVITY 1.028; UROBILINOGEN,URINE NEGATIVE mg/dL (<2.0)
== END 2017-06-05 16:40 | disposition home or self-care (01) ==
LOC: ER 15:18
DX: R30.0 Dysuria (principal); R39.15 Urgency of urination; R35.0 Frequency of micturition; F17.200 Nicotine dependence, unspecified, uncomplicated; Z87.440 Personal history of urinary (tract) infections
CPT/HCPCS: 81001; 87086; 87088; 87186; 99283

== ENCOUNTER 2017-09-04 14:18 | Emergency (ER) | payer MEDICAID ==
[2017-09-04] MEDS ORDERED: IBUPROFEN 800 MG TABLET PO ONE (15:19)
[2017-09-04] MEDS ORDERED: PSEUDOEPHEDRINE HCL 30 MG TABLET PO ONE (15:19)
--- NOTE | 2017-09-04 15:20 | ER Document Report ---
HPI - HPI Pain Level: 5 Context: Patient is a 26-year-old female presents emergency department complaining of nasal congestion, sore throat, nonproductive cough since yesterday. She denies any fevers, difficulty swallowing, difficulty breathing, chest pain, nausea, vomiting. She denies any sick contacts. Denies any body aches. - CONSTITUTIONAL Constitutional: DENIES: Fever, Chills - EENT EENT: REPORTS: Sore Throat. DENIES: Ear Pain, Eye problems - NEURO Neurology: DENIES: Headache, Weakness, Vision blurred, Dizzinesss / Vertigo - CARDIOVASCULAR Cardiovascular: DENIES: Chest pain - RESPIRATORY Respiratory: DENIES: Trouble Breathing, Coughing - GASTROINTESTINAL Gastrointestinal: DENIES: Abdominal Pain, Black / Bloody Stools - URINARY Urinary: DENIES: Dysuria, Urgency, Frequency - REPRODUCTIVE LMP: Current Reproductive: DENIES: : - MUSCULOSKELETAL Musculoskeletal: DENIES: Extremity pain Past Medical History - Social History Smoking Status: Current Some Day Smoker Chew tobacco use (# tins/day): No Frequency of alcohol use: None Drug Abuse: None Family History: Arthritis - RA mother and son, COPD, DM, Hypertension, Malignancy, Thyroid Disfunction Patient has suicidal ideation: No Patient has homicidal ideation: No - Past Medical History Cardiac Medical History: Denies: Hx Coronary Artery Disease, Hx Hypertension Pulmonary Medical History: Denies: Hx Asthma Endocrine Medical History: Denies: Hx Diabetes Mellitus Type 1, Hx Diabetes Mellitus Type 2 Renal/ Medical History: Denies: Hx Peritoneal Dialysis Musculoskeltal Medical History: Reports Hx Musculoskeletal Deformity Psychiatric Medical History: Reports: Hx Anxiety, Hx Attention Deficit Hyperactivity Disorder, Hx Bipolar Disorder, Hx Borderline Personality Disorder , Hx Depression, Hx Schizophrenia - Immunizations Immunizations up to date: Yes Hx Diphtheria, Pertussis, Tetanus Vaccination: Yes Vertical Provider Document - CONSTITUTIONAL Agree With Documented VS: Yes Notes: PHYSICAL EXAM GENERAL: Alert, interacts well. HEENT: NCAT, pale conjunctiva, extraocular movements intact, pupils PERRL. external ear normal, no evidence of external auditory canal tenderness, blood/ drainage, cerumen impaction, TM intact without evidence of effusion, bulging, injection, MMM NECK: Full range of motion. Supple. Trachea midline. LUNGS: Clear to auscultation bilaterally, no wheezes, rales, or rhonchi. No respiratory distress. HEART: Regular rate and rhythm. No murmurs, gallops, or rubs. ABDOMEN: Soft, nondistended, nontender. No guarding, rebound, or rigidity.. Bowel sounds present in all 4 quadrants. EXTREMITIES: Moves all 4 extremities spontaneously. No edema, radial and dorsalis pedis pulses 2/4 bilaterally. No cyanosis. NEUROLOGICAL: Alert and oriented x4. Normal speech. PSYCH: Normal affect, normal mood. SKIN: Warm, dry, normal turgor. No rashes or lesions noted. - INFECTION CONTROL TRAVEL OUTSIDE OF THE [place] IN LAST 30 DAYS: No - RESPIRATORY O2 Sat by Pulse Oximetry: 97 Course - Re-evaluation Re-evalutation: 09/04/17 15:19 Presentation is most consistent with a viral upper respiratory infection. Patient is overall well appearance, vitals within normal limits, well-hydrated. Patient denies any headache, neck pain, and has no evidence of meningismus on examination. Lungs are clear bilaterally. No evidence of respiratory distress. Based on clinical exam and history, I do not suspect an acute pneumonia, meningitis, strep pharyngitis, or an acute encephalitis. No laboratory or imaging testing is indicated at this time. Will discharge patient with return precautions and followup recommendations. They are in agreement this plan have verbalized understanding return precautions. - Vital Signs Vital signs: Temp Pulse Resp BP Pulse Ox 98.2 F 62 16 107/57 L 97 09/04/17 14:22 09/04/17 14:22 09/04/17 14:22 09/04/17 14:22 09/04/17 14:22 Discharge - Discharge Clinical Impression: URI (upper respiratory infection) Qualifiers: URI type: unspecified viral URI Qualified Code(s): J06.9 - Acute upper respiratory infection, unspecified Condition: Good Disposition: HOME, SELF-CARE Additional Instructions: Your symptoms are most likely due to a viral infection it should resolve over the next 7-14 days. You should take parz-kqn-meswzte guanfacine per bottle instructions to help thin the mucus. For nasal congestion: I would recommend that you get qgwy-tdd-sbpcarj oxymetazoline also known is afrin. Use only per bottle instructions and be sure to never use this for more than 3 days if you can develop severe rebound congestion. You may also use tylenol or ibuprofen as needed for aches and thorat discomfort. Please be sure to drink plenty of fluids and get rest. Return to the emergency department he began having difficulty breathing, chest pain, persistent vomiting, or any other symptoms that are concerning to you. Medications to take xyzl-hvq-wbmpfle include but are not limited to pseudoephedrine as a decongestant, any antihistamine such as Benadryl or Claritin or Shruthi or Zyrtec.
[2017-09-04 15:38] VITALS: BP 95/52
== END 2017-09-04 15:38 | disposition home or self-care (01) ==
LOC: ER 14:18
DX: J06.9 Acute upper respiratory infection, unspecified (principal); R09.81 Nasal congestion; J02.9 Acute pharyngitis, unspecified; R05 Cough; F17.200 Nicotine dependence, unspecified, uncomplicated
CPT/HCPCS: 99282; J3490

== ENCOUNTER 2017-12-05 12:01 | Emergency (ER) | payer MEDICAID ==
[2017-12-05] MEDS ORDERED: NORMAL SALINE 1000 ML 1,000 ML IV ONE (12:34)
[2017-12-05] MEDS ORDERED: METOCLOPRAMIDE HCL INJ/PF 10 MG/2 ML SDV IV ONE (12:34)
[2017-12-05 12:55] LABS: ABSOLUTE LYMPHOCYTES (AUTO) 0.8 10^3/uL (0.5-4.7); ABSOLUTE MONOCYTES (AUTO) 0.6 10^3/uL (0.1-1.4); ABSOLUTE NEUT (AUTO) 4.5 10^3/uL (1.7-8.2); BASOPHILS % (AUTO) 0.1 % (0-2); EOSINOPHILS % (AUTO) 0.4 % (0-6); HEMATOCRIT 38.7 % (36.0-47.0); HEMOGLOBIN 13.7 g/dL (12.0-15.5); MEAN CORPUSCULAR HEMOGLOBIN 31.3 pg (27.0-33.4); MEAN CORPUSCULAR HGB CONC 35.4 g/dL (32.0-36.0); MEAN CORPUSCULAR VOLUME 88 fl (80-97); MONOCYTES % (AUTO) 10.6 % (3-13); PLATELET COUNT 151 10^3/uL (150-450); RED BLOOD COUNT 4.39 10^6/uL (3.72-5.28); RED CELL DISTRIBUTION WIDTH 12.7 % (11.5-14.0); SEGMENTED NEUTROPHILS % (AUTO) 75.9 % (42-78); TOTAL CELLS COUNTED % (AUTO) 100 %
[2017-12-05 13:11] LABS: ALANINE AMINOTRANSFERASE 32 U/L (9-52); ALKALINE PHOSPHATASE 49 U/L (38-126); ANION GAP 11 (5-19); ASPARTATE AMINO TRANSFERASE 18 U/L (14-36); BILIRUBIN,DIRECT 0.4 mg/dL (0.0-0.4); BILIRUBIN,TOTAL 0.4 mg/dL (0.2-1.3); BLOOD UREA NITROGEN 8 mg/dL (7-20); CALCIUM 9.4 mg/dL (8.4-10.2); CARBON DIOXIDE 22 mmol/L (22-30); CHLORIDE 104 mmol/L (98-107); GLUCOSE 88 mg/dL (75-110); POTASSIUM 3.8 mmol/L (3.6-5.0); SODIUM 137.4 mmol/L (137-145); TOTAL PROTEIN 6.6 g/dL (6.3-8.2)
[2017-12-05 15:21] VITALS: BP 110/68
--- NOTE | 2017-12-05 15:26 | ER Document Report ---
ED GI/ - General Chief Complaint: Vomiting Stated Complaint: VOMITING Time Seen by Provider: 12/05/17 12:34 Mode of Arrival: Medic Information source: Patient Notes: Patient is a 27-year-old female, who presents to the ER today approximately 8 weeks who presents for vomiting, since 3 AM this morning. Patient denies any abdominal pain, diarrhea, fevers or chills, states that she has not really had any issues with nausea or vomiting in this yet. She does not have anything for nausea at home. She admits to more than 4 episodes of vomiting. TRAVEL OUTSIDE OF THE [place] IN LAST 30 DAYS: No - Related Data Allergies/Adverse Reactions: latex [Latex] Allergy (Intermediate, Verified 12/05/17 12:11) rash Past Medical History - General Information source: Patient - Social History Smoking Status: Current Every Day Smoker Chew tobacco use (# tins/day): Yes Frequency of alcohol use: None Drug Abuse: None Family History: Arthritis - RA mother and son, COPD, DM, Hypertension, Malignancy, Thyroid Disfunction Patient has suicidal ideation: No Patient has homicidal ideation: No - Past Medical History Cardiac Medical History: Denies: Hx Coronary Artery Disease, Hx Hypertension Pulmonary Medical History: Denies: Hx Asthma Endocrine Medical History: Denies: Hx Diabetes Mellitus Type 1, Hx Diabetes Mellitus Type 2 Renal/ Medical History: Denies: Hx Peritoneal Dialysis Musculoskeltal Medical History: Reports Hx Musculoskeletal Deformity Psychiatric Medical History: Reports: Hx Anxiety, Hx Attention Deficit Hyperactivity Disorder, Hx Bipolar Disorder, Hx Borderline Personality Disorder , Hx Depression, Hx Schizophrenia - Immunizations Immunizations up to date: Yes Hx Diphtheria, Pertussis, Tetanus Vaccination: Yes Review of Systems - Review of Systems Constitutional: No symptoms reported EENT: No symptoms reported Cardiovascular: No symptoms reported Respiratory: No symptoms reported Gastrointestinal: See HPI Genitourinary: No symptoms reported Female Genitourinary: See HPI Musculoskeletal: No symptoms reported Skin: No symptoms reported Hematologic/Lymphatic: No symptoms reported Neurological/Psychological: No symptoms reported Physical Exam - Vital signs Vitals: Temp Pulse Resp BP Pulse Ox 98.1 F 52 L 14 105/55 L 97 12/05/17 12:19 12/05/17 12:19 12/05/17 12:19 12/05/17 12:19 12/05/17 12:19 - Notes Notes: PHYSICAL EXAMINATION: GENERAL: Well-appearing and in no acute distress. HEAD: Atraumatic, normocephalic. EYES: Pupils equal round and reactive to light, extraocular movements intact, sclera anicteric, conjunctiva are normal. ENT: ear canals without erythema or foreign body, TMs pearly meneses with good bony landmarks, nares patent, oropharynx clear without exudates. Moist mucous membranes. NECK: Normal range of motion, supple without lymphadenopathy LUNGS: CTAB and equal. No wheezes rales or rhonchi. HEART: Regular rate and rhythm without murmurs ABDOMEN: Soft, no tenderness. No guarding, no rebound BACK: no vertebral tenderness, normal ROM GI/: no CVA tenderness EXTREMITIES: Normal range of motion, no pitting edema. No cyanosis. NEUROLOGICAL: Cranial nerves grossly intact. Normal sensory/motor exams. PSYCH: Normal mood, normal affect. SKIN: Warm, Dry, normal turgor, no rashes or lesions noted Course - Re-evaluation Re-evalutation: 12/05/17 15:25 Lab work is unremarkable today, hCG is positive and appropriate for 8 weeks . Patient feels much better after Reglan and fluids given during IV and her blood pressure is110/68. Other vitals are all normal. 12/05/17 15:25 - Vital Signs Vital signs: Temp Pulse Resp BP Pulse Ox 98.0 F 66 16 110/68 99 12/05/17 15:20 12/05/17 15:20 12/05/17 15:20 12/05/17 15:20 12/05/17 15:20 - Laboratory Result Diagrams: 12/05/17 11:38 12/05/17 11:38 Laboratory results interpreted by me: 12/05/17 11:38 Beta HCG, Quant [id number] H Discharge - Discharge Clinical Impression: Nausea and vomiting during Condition: Stable Disposition: HOME, SELF-CARE Additional Instructions: Return immediately for any new or worsening symptoms. Follow up with primary care provider, call tomorrow to make followup appointment. Prescriptions: Metoclopramide HCl [Reglan 10 mg Tablet] 10 mg PO Q8 PRN #30 tablet PRN Reason: Referrals: THIERNO LEE MD [Primary Care Provider] - Follow up as needed
== END 2017-12-05 15:37 | disposition home or self-care (01) ==
LOC: ER 12:01
DX: O21.9 Vomiting of pregnancy, unspecified (principal); O99.331 Smoking (tobacco) complicating pregnancy, first trimester; Z3A.08 8 weeks gestation of pregnancy; Z91.040 Latex allergy status
CPT/HCPCS: 99284; 96374; 36415; 84702; 85025; 80053; J2765; J7030

== ENCOUNTER 2017-12-10 12:10 | Emergency (ER) | payer MEDICAID ==
[2017-12-10] MEDS ORDERED: ACETAMINOPHEN 325 MG TABLET PO ONE (13:28)
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
[2017-12-10 15:00] LABS: APPEARANCE,URINE CLOUDY; BILIRUBIN,URINE NEGATIVE (NEGATIVE); COLOR,URINE YELLOW; GLUCOSE, URINE NEGATIVE (NEGATIVE); KETONES,URINE 80 mg/dL (NEGATIVE); LEUKOCYTE ESTERASE,URINE MODERATE (NEGATIVE); NITRITE,URINE NEGATIVE (NEGATIVE); PROTEIN,URINE 30 mg/dL (NEGATIVE); URINE SPECIFIC GRAVITY 1.034
[2017-12-10] MEDS ORDERED: CEPHALEXIN 500 MG CAPSULE PO ONE (15:19)
[2017-12-10 15:46] VITALS: BP 106/57
== END 2017-12-10 15:45 | disposition home or self-care (01) ==
LOC: ER 12:10
DX: N39.0 Urinary tract infection, site not specified (principal); M54.5 Low back pain; M54.9 Dorsalgia, unspecified; G89.29 Other chronic pain; Y09 Assault by unspecified means; F17.200 Nicotine dependence, unspecified, uncomplicated; Z3A.08 8 weeks gestation of pregnancy
CPT/HCPCS: 99284; 87086; 87088; 81001; 87186; 76817; J3490

== ENCOUNTER 2018-04-02 13:53 | Outpatient (CLI) | payer MEDICAID ==
[2018-04-02 15:18] LABS: APPEARANCE,URINE CLEAR; BILIRUBIN,URINE NEGATIVE (NEGATIVE); COLOR,URINE STRAW; GLUCOSE, URINE NEGATIVE (NEGATIVE); KETONES,URINE NEGATIVE (NEGATIVE); LEUKOCYTE ESTERASE,URINE TRACE (NEGATIVE); NITRITE,URINE NEGATIVE (NEGATIVE); PROTEIN,URINE NEGATIVE (NEGATIVE); URINE SPECIFIC GRAVITY 1.011; UROBILINOGEN,URINE NEGATIVE mg/dL (<2.0)
[2018-04-02 15:51] LABS: URINE AMPHETAMINES SCREEN NEGATIVE; URINE BARBITURATES SCREEN NEGATIVE; URINE BENZODIAZEPINES SCREEN NEGATIVE; URINE COCAINE SCREEN NEGATIVE; URINE MARIJUANA (THC) SCREEN NEGATIVE; URINE METHADONE SCREEN NEGATIVE; URINE PHENCYCLIDINE SCREEN NEGATIVE
[2018-04-02 15:56] LABS: ABSOLUTE EOSINOPHILS # (AUTO) 0.1 10^3/uL (0.0-0.6); ABSOLUTE LYMPHOCYTES (AUTO) 1.9 10^3/uL (0.5-4.7); ABSOLUTE MONOCYTES (AUTO) 0.6 10^3/uL (0.1-1.4); ABSOLUTE NEUT (AUTO) 7.6 10^3/uL (1.7-8.2); BASOPHILS % (AUTO) 0.2 % (0-2); EOSINOPHILS % (AUTO) 1.3 % (0-6); HEMATOCRIT 33.5 % (36.0-47.0); HEMOGLOBIN 11.8 g/dL (12.0-15.5); LYMPHOCYTES % (AUTO) 18.7 % (13-45); MEAN CORPUSCULAR HEMOGLOBIN 32.3 pg (27.0-33.4); MEAN CORPUSCULAR HGB CONC 35.1 g/dL (32.0-36.0); MEAN CORPUSCULAR VOLUME 92 fl (80-97); MONOCYTES % (AUTO) 5.4 % (3-13); PLATELET COUNT 131 10^3/uL (150-450); RED BLOOD COUNT 3.64 10^6/uL (3.72-5.28); RED CELL DISTRIBUTION WIDTH 13.1 % (11.5-14.0); SEGMENTED NEUTROPHILS % (AUTO) 74.4 % (42-78); TOTAL CELLS COUNTED % (AUTO) 100 %; WHITE BLOOD COUNT 10.3 10^3/uL (4.0-10.5)
[2018-04-02 16:10] LABS: ALANINE AMINOTRANSFERASE 16 U/L (9-52); ALBUMIN 3.2 g/dL (3.5-5.0); ALKALINE PHOSPHATASE 47 U/L (38-126); ANION GAP 5 (5-19); ASPARTATE AMINO TRANSFERASE 13 U/L (14-36); BILIRUBIN,DIRECT 0.2 mg/dL (0.0-0.4); BILIRUBIN,TOTAL 0.3 mg/dL (0.2-1.3); BLOOD UREA NITROGEN 8 mg/dL (7-20); CALCIUM 9.2 mg/dL (8.4-10.2); CARBON DIOXIDE 24 mmol/L (22-30); CHLORIDE 108 mmol/L (98-107); GLUCOSE 69 mg/dL (75-110); POTASSIUM 4.1 mmol/L (3.6-5.0); SODIUM 136.9 mmol/L (137-145); TOTAL PROTEIN 5.7 g/dL (6.3-8.2)
--- NOTE | 2018-04-02 17:25 | RADIOLOGY REPORT (SQ) ---
EXAM DESCRIPTION: U/S OB LIMITED COMPLETED DATE/TIME: 04/02/2018 4:56 pm REASON FOR STUDY: cervical length, placenta location COMPARISON: None. TECHNIQUE: Limited transabdominal grayscale ultrasound for evaluation of specific requested obstetri kimmy parameters. LIMITATIONS: None. FINDINGS: CERVICAL LENGTH: 6.3 cm Closed. LUDMILA: Largest pocket 6.8 cm. FHR: 141 beats per minute. PRESENTATION: Breech OTHER: Posterior placenta is identified. IMPRESSION: LIMITED OBSTETRICAL ULTRASOUND WITH MEASURED PARAMETERS DELINEATED ABOVE. Trimester of : Second trimester - 13 weeks 1 day to 27 weeks 6 days. TECHNICAL DOCUMENTATION: JOB ID: [id number] [employer]- All Rights Reserved Reading location - IP/workstation name: [email or web address]
== END 2018-04-02 17:49 | disposition home or self-care (01) ==
LOC: LC 13:53
PROVIDERS: ATTEND Obstetrics & Gynecology
PROC: 4A1HXCZ Monitoring of Products of Conception, Cardiac Rate, External Approach (ICD-10-PCS; principal; 2018-04-02)
DX: O36.8120 Decreased fetal movements, second trimester, not applicable or unspecified (principal); Z3A.25 25 weeks gestation of pregnancy
CPT/HCPCS: 36415; 76815; 80053; 80307; 81001; 85025; 94760

== ENCOUNTER 2018-06-10 01:15 | Outpatient (CLI) | payer MEDICAID ==
[2018-06-10 02:31] LABS: APPEARANCE,URINE CLOUDY; BILIRUBIN,URINE NEGATIVE (NEGATIVE); COLOR,URINE YELLOW; GLUCOSE, URINE NEGATIVE (NEGATIVE); KETONES,URINE NEGATIVE (NEGATIVE); LEUKOCYTE ESTERASE,URINE LARGE (NEGATIVE); NITRITE,URINE NEGATIVE (NEGATIVE); PROTEIN,URINE NEGATIVE (NEGATIVE); URINE SPECIFIC GRAVITY 1.026
--- NOTE | 2018-06-10 03:46 | Non Stress Test Report ---
Non Stress Test Datetime Report Generated by CPN: 06/10/2018 03:46 DEMOGRAPHIC EGA NST: 35.1 INDICATION Indication for Study: Ordered by Provider; Other Indication for Study (NST) Other: labor check MONITORING Monitor Explained: Monitor Explained; Test Explained; Patient Verbalized Understanding Time on Monitor: 06/10/2018 01:32 Time off Monitor: 06/10/2018 03:25 NST Duration: 113 NST INTERVENTIONS NST Interventions: None Physician Notified NST: Dr Rae BABY A: [id number] BABY A Movement : Present Contraction Frequency : irregular FHR Baseline : 120 Accelerations : 15X15 Decelerations : None Variability : Moderate 6-25bpm NST Review: Meets Criteria for Reactive NST NST Review and Verified By : alize hidalgo rn NST Results: Reactive NST REPORT Report Trigger: Send Report
[2018-06-10 05:04] LABS: URINE AMPHETAMINES SCREEN NEGATIVE; URINE BARBITURATES SCREEN NEGATIVE; URINE BENZODIAZEPINES SCREEN NEGATIVE; URINE COCAINE SCREEN NEGATIVE; URINE MARIJUANA (THC) SCREEN NEGATIVE; URINE METHADONE SCREEN NEGATIVE; URINE PHENCYCLIDINE SCREEN NEGATIVE
== END 2018-06-10 03:40 | disposition home or self-care (01) ==
LOC: LC 01:15
PROVIDERS: ATTEND Obstetrics & Gynecology
PROC: 4A1HXCZ Monitoring of Products of Conception, Cardiac Rate, External Approach (ICD-10-PCS; principal; 2018-06-10)
DX: O47.03 False labor before 37 completed weeks of gestation, third trimester (principal); Z3A.35 35 weeks gestation of pregnancy
CPT/HCPCS: 80307; 81001; 84112

== ENCOUNTER 2018-06-30 17:28 | Outpatient (CLI) | payer MEDICAID ==
[2018-06-30 18:18] LABS: APPEARANCE,URINE CLEAR; BILIRUBIN,URINE NEGATIVE (NEGATIVE); COLOR,URINE YELLOW; GLUCOSE, URINE NEGATIVE (NEGATIVE); KETONES,URINE NEGATIVE (NEGATIVE); LEUKOCYTE ESTERASE,URINE TRACE (NEGATIVE); NITRITE,URINE NEGATIVE (NEGATIVE); PROTEIN,URINE NEGATIVE (NEGATIVE); URINE SPECIFIC GRAVITY 1.024
[2018-06-30 18:26] LABS: URINE AMPHETAMINES SCREEN NEGATIVE; URINE BARBITURATES SCREEN NEGATIVE; URINE BENZODIAZEPINES SCREEN NEGATIVE; URINE COCAINE SCREEN NEGATIVE; URINE MARIJUANA (THC) SCREEN NEGATIVE; URINE METHADONE SCREEN NEGATIVE; URINE PHENCYCLIDINE SCREEN NEGATIVE
[2018-06-30] MEDS ORDERED: HYDROXYZINE PAMOATE 50 MG CAPSULE PO ONE (18:50)
[2018-06-30] MEDS ORDERED: RINGERS SOLUTION,LACTATED 1,000 ML IV PRN (18:56)
== END 2018-06-30 20:02 | disposition home or self-care (01) ==
LOC: LC 17:28
PROVIDERS: ATTEND Obstetrics & Gynecology
PROC: 4A1HXCZ Monitoring of Products of Conception, Cardiac Rate, External Approach (ICD-10-PCS; principal; 2018-06-30)
DX: O47.1 False labor at or after 37 completed weeks of gestation (principal); Z3A.38 38 weeks gestation of pregnancy
CPT/HCPCS: 59025; 80307; 81005; 87086

== ENCOUNTER 2018-07-16 21:43 | Inpatient (IN) | payer MEDICAID ==
[2018-07-16 22:22] LABS: APPEARANCE,URINE SLIGHTLY-CLOUDY; BILIRUBIN,URINE NEGATIVE (NEGATIVE); COLOR,URINE YELLOW; GLUCOSE, URINE NEGATIVE (NEGATIVE); KETONES,URINE NEGATIVE (NEGATIVE); LEUKOCYTE ESTERASE,URINE TRACE (NEGATIVE); NITRITE,URINE NEGATIVE (NEGATIVE); PROTEIN,URINE NEGATIVE (NEGATIVE); URINE SPECIFIC GRAVITY 1.029; UROBILINOGEN,URINE NEGATIVE mg/dL (<2.0)
[2018-07-16 22:44] LABS: URINE AMPHETAMINES SCREEN NEGATIVE; URINE BARBITURATES SCREEN NEGATIVE; URINE BENZODIAZEPINES SCREEN NEGATIVE; URINE COCAINE SCREEN NEGATIVE; URINE MARIJUANA (THC) SCREEN NEGATIVE; URINE METHADONE SCREEN NEGATIVE; URINE PHENCYCLIDINE SCREEN NEGATIVE
--- NOTE | 2018-07-17 00:18 | Non Stress Test Report ---
Non Stress Test Datetime Report Generated by CPN: 07/17/2018 00:18 DEMOGRAPHIC EGA NST: 40.2 INDICATION Indication for Study: Ordered by Provider Indication for Study (NST) Other: LC VITAL SIGNS Temperature - NST: 98.7 MONITORING Monitor Explained: Monitor Explained; Test Explained; Patient Verbalized Understanding Time on Monitor: 07/16/2018 21:55 Time off Monitor: 07/16/2018 22:54 NST Duration: 59 NST INTERVENTIONS NST Interventions: PO Hydration; Reposition Patient Physician Notified NST: Dr. Davies BABY A: [id number] BABY A Movement : Present Contraction Frequency : irregular with irritability FHR Baseline : 115 Accelerations : 15X15 Decelerations : None Variability : Moderate 6-25bpm NST Review: Meets Criteria for Reactive NST NST Review and Verified By : Norbert Mann RN NST Results: Reactive NST REPORT Report Trigger: Send Report
[2018-07-17] MEDS ORDERED: RINGERS SOLUTION,LACTATED 1,000 ML IV PRN (00:29)
[2018-07-17] MEDS ORDERED: OXYTOCIN/NORMAL SALINE 20 UNIT/1,000 ML RTUINJ IV PRN ×2 (00:29→02:05)
[2018-07-17] MEDS ORDERED: RINGERS SOLUTION,LACTATED 300 ML IV ONE (00:29)
[2018-07-17 00:53] LABS: ABSOLUTE BASOPHILS # (AUTO) 0.1 10^3/uL (0.0-0.2); ABSOLUTE EOSINOPHILS # (AUTO) 0.1 10^3/uL (0.0-0.6); ABSOLUTE LYMPHOCYTES (AUTO) 2.6 10^3/uL (0.5-4.7); ABSOLUTE MONOCYTES (AUTO) 0.9 10^3/uL (0.1-1.4); ABSOLUTE NEUT (AUTO) 9.4 10^3/uL (1.7-8.2); BASOPHILS % (AUTO) 0.4 % (0-2); EOSINOPHILS % (AUTO) 0.7 % (0-6); HEMATOCRIT 32.4 % (36.0-47.0); HEMOGLOBIN 11.6 g/dL (12.0-15.5); LYMPHOCYTES % (AUTO) 19.8 % (13-45); MEAN CORPUSCULAR HEMOGLOBIN 33.2 pg (27.0-33.4); MEAN CORPUSCULAR HGB CONC 35.7 g/dL (32.0-36.0); MEAN CORPUSCULAR VOLUME 93 fl (80-97); MONOCYTES % (AUTO) 6.7 % (3-13); PLATELET COUNT 137 10^3/uL (150-450); RED BLOOD COUNT 3.49 10^6/uL (3.72-5.28); RED CELL DISTRIBUTION WIDTH 13.2 % (11.5-14.0); SEGMENTED NEUTROPHILS % (AUTO) 72.4 % (42-78); TOTAL CELLS COUNTED % (AUTO) 100 %; WHITE BLOOD COUNT 13.1 10^3/uL (4.0-10.5)
[2018-07-17] MEDS ORDERED: LIDOCAINE 1% INJ-PF (10 MG/ML) 30 ML SDV ONE (01:05)
[2018-07-17] MEDS ORDERED: MISOPROSTOL 0.2 MG TABLET ONE (01:05)
[2018-07-17] MEDS ORDERED: OXYTOCIN/NORMAL SALINE 20 UNIT/1,000 ML RTUINJ ONE (01:06)
[2018-07-17] MEDS ORDERED: EPHEDRINE SULFATE INJ 50 MG/1 ML AMPULE ONE (01:18)
[2018-07-17] MEDS ORDERED: FENTANYL/BUPIVACAINE/NS/PF 0 MCG/0 ML RTUINJ EPI ONE (01:18)
[2018-07-17] MEDS ORDERED: BUPIVACAINE HCL 0.5 % INJ/PF 30 ML SDV ONE (01:19)
[2018-07-17] MEDS ORDERED: PROMETHAZINE HCL 25 MG TABLET PO PRN (02:05)
[2018-07-17] MEDS ORDERED: NA PHOS,M-B/NA PHOS,DI-BA (ADULT) 133 ML ENEMA PR PRN (02:05)
[2018-07-17] MEDS ORDERED: DIBUCAINE 1% OINTMENT 28 GM TP PRN (02:05)
[2018-07-17] MEDS ORDERED: DIPHENHYDRAMINE HCL 25 MG CAPSULE PO PRN (02:05)
[2018-07-17] MEDS ORDERED: ZOLPIDEM TARTRATE 5 MG TABLET PO PRN (02:05)
[2018-07-17] MEDS ORDERED: MAGNESIUM HYDROXIDE SUSP 30 ML UDCUP PO PRN (02:05)
[2018-07-17] MEDS ORDERED: PROMETHAZINE HCL 25 MG SUPP.RECT PR PRN (02:05)
[2018-07-17] MEDS ORDERED: ACETAMINOPHEN WITH CODEINE #3 TABLET PO PRN ×2 (02:05)
[2018-07-17] MEDS ORDERED: PSEUDOEPHEDRINE HCL 30 MG TABLET PO PRN (02:05)
[2018-07-17] MEDS ORDERED: PROMETHAZINE HCL INJ 25 MG/1 ML VIAL IV PRN (02:05)
[2018-07-17] MEDS ORDERED: ACETAMINOPHEN 325 MG TABLET PO PRN (02:05)
[2018-07-17] MEDS ORDERED: MEASLES,MUMPS&RUBELLA VACC/PF 0.5 ML VIAL SUBCUT PRN (02:05)
[2018-07-17] MEDS ORDERED: GLYCERIN/WITCH HAZEL LEAF 1 EACH MED..PAD TP PRN (02:05)
[2018-07-17] MEDS ORDERED: OXYTOCIN 10 UNIT/ML VIAL ONE (02:32)
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
[2018-07-17] MEDS ORDERED: IBUPROFEN 800 MG TABLET ONE (03:11)
[2018-07-17] MEDS ORDERED: ACETAMINOPHEN 325 MG TABLET ONE (03:11)
--- NOTE | 2018-07-17 03:42 | Warning Signs in Babies ---
VOD Warning Signs Datetime Report Generated by [facility]: 07/17/2018 03:42 VOD#608 -Warning Signs in Babies: Viewed with Parent(s)/Family (07/17/2018 03:30:Leny Barr RN)
[2018-07-17] MEDS ORDERED: BENZOCAINE/MENTHOL AEROSOL SPRAY 56 ML ONE (04:11)
[2018-07-17] MEDS: BENZOCAINE/MENTHOL AEROSOL SPRAY 56 ML TOP PRN (04:13)
--- NOTE | 2018-07-17 05:09 | Delivery Summary ---
Del Sum A-C Datetime Report Generated by CPN: 07/17/2018 05:08 DELIVERY PERSONNEL DELIVERY PERSONNEL: [id number] Delivery Doctor:: Katharine Davies MD Labor and Delivery Nurse:: Leny Barr RNfloor nurse Nurse:: Luba Mann RN Assistant Public Defender/LEARNING AND DEVELOPMENT OFFICER: Olinda Raines, FUR DESIGNER Assistant Public Defender/LEARNING AND DEVELOPMENT OFFICER: SKIP ParkA MATERNAL INFORMATION Delivery Anesthesia: None Medications After Delivery: Pitocin Drip 20 Units/1000ml NSS; Cytotec 1000mcg Per Rectum/Vagina Maternal Complications: Precipitous Labor (<3hrs) Provider Comments: VFI delivered in [place] with tight nuchal cord. Delivered through tight nuchal cord. Shoulders and body delivered without difficulty. Cord doubly clamped and cut and to maternal abdomen. Placenta delivered intact spontaneously. right superficial laceration repaired for hemostasis. FF at U after pitocin IV and cytotec ME. Mother and baby stable upon provider leaving the room. LABOR SUMMARY EDC: 07/14/2018 00:00 No. Babies in Womb: 1 Attempted: No Labor Anesthesia: None LABOR INFORMATION Reason for Induction: Not Applicable Onset of Labor: 07/17/2018 01:49 Complete Dilatation: 07/17/2018 02:45 Oxytocin: N/A Group B Beta Strep: negative Antibiotics # of Doses: n/a Steroids Given: None Reason Steroids Not Administered: Not Applicable MEMBRANES Membranes Rupture Method: Artificial Rupture of Membranes: 07/17/2018 02:45 Length of Rupture (hr): -0.03 Amniotic Fluid Color: Clear Amniotic Fluid Amount: Small Amniotic Fluid Odor: None STAGES OF LABOR Stage 1 hr: 0 Stage 1 min: 56 Stage 2 hr: 0 Stage 2 min: -2 Stage 3 hr: 0 Stage 3 min: 2 Total Time in Labor hr: 0 Total Time in Labor min: 56 VAGINAL DELIVERY Episiotomy: None Laceration #1: Vaginal Laceration Extension #1: N/A Laceration Repair: Not Applicable Laceration Repair Note: right labial laceration repaired in usual fashion for hemostasis. Sponge Count Correct: Yes Sharps Count Correct: Yes CSECTION DELIVERY Primary Indication: N/A Secondary Indication: N/A CSection Incision: N/A BABY A INFORMATION Delivery Date/Time: 07/17/2018 02:43 Method of Delivery: Vaginal Born in Route : No : N/A Forceps: N/A Vacuum Extraction: N/A Shoulder Dystocia : No PRESENTATION/POSITION BABY A Presentation: Cephalic Cephalic Presentation: Vertex Vertex Position: Left Occipital Anterior Breech Presentation: N/A PLACENTA INFORMATION BABY A Placenta Delivery Time : 07/17/2018 02:45 Placenta Method of Delivery: Spontaneous Placenta Status: Delivered SCORES BABY A Heart Rate 1 min: >100 bpm Resp Effort 1 min: Good Cry Reflex Irritability 1 min: Cough or Sneeze or Pulls Away Muscle Tone 1 min: Active Motion Color 1 min: Blue/Pale Resuscitation Effort 1 min: Tactile Stimulation SCORE 1 MIN: 8 Heart Rate 5 min: >100 bpm Resp Effort 5 min: Good Cry Reflex Irritability 5 min: Cough or Sneeze or Pulls Away Muscle Tone 5 min: Active Motion Color 5 min: Body [place], Extremities Blue SCORE 5 MIN: 9 INFORMATION BABY A Gestational Age at Delivery: 40.3 Gestational Status: Full Term- 39- 40.6 Weeks Infant Outcome : Liveborn Condition : Stable Infant Sex: Female IDENTIFICATION BABY A Infant Verification Date/Time: 07/17/2018 04:01 ID Band Number: [id number] Mother's Name Verified: Yes Infant RN Verifying : Norbert Barr RN Additional Verifying Personnel: Norbert Mann RN WEIGHT/LENGTH BABY A Infant Birthweight (gm): 3150 Weight (lb): 6 Weight (oz): 15 Infant Length (in): 20.00 Infant Length (cm): 50.80 CORD INFORMATION BABY A No. Cord Vessels: 3 Nuchal Cord : Around Neck x1, Tight Cord Blood Taken: Yes-For Storage (Mom's Blood type +) Suction: Mouth; Nose ASSESSMENT BABY A Infant Complications: None Physical Findings at Delivery: Within Normal Limits Respirations: Appears Normal Patient Relations Director/ALS Called : No Infant Care By: M. Broman RN Transferred To: Remains with Mother BABY B INFORMATION : N/A SIGNATURES Signature: with User ID: [email or web address]
[2018-07-17] MEDS: IBUPROFEN 800 MG TABLET PO SCH ×3 (06:56→22:10)
--- NOTE | 2018-07-17 09:59 | PDOC PROGRESS REPORT ---
Subjective-OB Progress Note for:: 07/17/18 Subjective: Doing well, OOB in halls and nursery, concerned baby had a apnea spell, nervous now, " I need a cigarette" Physical Exam (OB) Vital Signs: Temp Pulse Resp BP Pulse Ox 98.4 F 49 L 17 115/57 L 99 07/17/18 07:33 07/17/18 07:33 07/17/18 07:33 07/17/18 07:33 07/17/18 07:33 Intake & Output 07/16/18 07/17/18 07/18/18 06:59 06:59 06:59 Weight 90.5 kg - Lochia Lochia Amount: Small 10-25 ml Lochia Color: Rubra/Red - Abdomen Description: Soft, Round Hernia Present: No Fundal Description: Firm, Midline Fundal Height: u/u - u/2 Objective-Diagnostic Laboratory: 07/17/18 00:39 07/16/18 07/17/18 07/17/18 21:52 00:39 00:39 WBC 13.1 H RBC 3.49 L Hgb 11.6 L Hct 32.4 L MCV 93 MCH 33.2 MCHC 35.7 RDW 13.2 Plt Count 137 L Seg Neutrophils % 72.4 Lymphocytes % 19.8 Monocytes % 6.7 Eosinophils % 0.7 Basophils % 0.4 Absolute Neutrophils 9.4 H Absolute Lymphocytes 2.6 Absolute Monocytes 0.9 Absolute Eosinophils 0.1 Absolute Basophils 0.1 Urine Color YELLOW Urine Appearance SLIGHTLY-CLOUDY Urine pH 6.0 Ur Specific [place] 1.029 Urine Protein NEGATIVE Urine Glucose (UA) NEGATIVE Urine Ketones NEGATIVE Urine Blood NEGATIVE Urine Nitrite NEGATIVE Ur Leukocyte Esterase TRACE H Blood Type A POSITIVE Antibody Screen NEGATIVE Assessment and Plan(PN) - Assessment and Plan (1) History of depression Is this a current diagnosis for this admission?: Yes (2) Bipolar 1 disorder Is this a current diagnosis for this admission?: Yes (3) Late onset care Is this a current diagnosis for this admission?: Yes (4) Smoker Is this a current diagnosis for this admission?: Yes (5) Delivery normal Is this a current diagnosis for this admission?: Yes - Time Spent with Patient Time with patient: Less than 15 minutes Medications reviewed and adjusted accordingly: Yes - Disposition Anticipated Discharge: Home Within: within 48 hours
[2018-07-17] MEDS: PRENATAL VITAMIN W DHA CAPSULE PO SCH (10:26)
[2018-07-17] MEDS: FAMOTIDINE 20 MG TABLET PO SCH ×2 (10:26→22:11)
[2018-07-17] MEDS: SENNOSIDES/DOCUSATE 8.6-50 MG 1 EACH TABLET PO SCH (10:26)
[2018-07-17] MEDS: FERROUS SULFATE 325 MG TABLET PO SCH ×2 (10:26→18:28)
[2018-07-17] MEDS: DOCUSATE SODIUM 100 MG CAPSULE PO SCH ×2 (10:26→18:28)
[2018-07-18] MEDS: IBUPROFEN 800 MG TABLET PO SCH ×2 (06:01→18:21)
[2018-07-18 07:50] LABS: HEMATOCRIT 31.5 % (36.0-47.0); HEMOGLOBIN 11.3 g/dL (12.0-15.5); MEAN CORPUSCULAR HEMOGLOBIN 33.4 pg (27.0-33.4); MEAN CORPUSCULAR HGB CONC 35.7 g/dL (32.0-36.0); MEAN CORPUSCULAR VOLUME 94 fl (80-97); PLATELET COUNT 136 10^3/uL (150-450); RED BLOOD COUNT 3.37 10^6/uL (3.72-5.28); RED CELL DISTRIBUTION WIDTH 12.9 % (11.5-14.0); WHITE BLOOD COUNT 10.4 10^3/uL (4.0-10.5)
--- NOTE | 2018-07-18 09:57 | PDOC DISCHARGE SUMMARY ---
Final Diagnosis Discharge Date: 07/18/18 - Final Diagnosis (1) Delivery normal Is this a current diagnosis for this admission?: Yes (2) Late onset care Is this a current diagnosis for this admission?: Yes (3) Smoker Is this a current diagnosis for this admission?: Yes Discharge Data - Discharge Medication Home Medications: Vits96/Iron Fum/Folic [ Tablet] 1 each PO DAILY 06/30/18 Reason(s) for Admission: Onset of Labor Procedures: NST Intrapartum Procedure(s): Spontaneous Vaginal Delivery Complication(s): Laceration-Labial Laceration-Degree: 1st - Diagnosis Test Laboratory: Temp Pulse Resp BP Pulse Ox 98.3 F 55 L 16 120/68 98 07/17/18 19:35 07/17/18 19:35 07/17/18 19:35 07/17/18 19:35 07/17/18 19:35 07/16/18 07/17/18 07/18/18 21:52 00:39 07:18 RBC 3.49 L 3.37 L Hgb 11.6 L 11.3 L Hct 32.4 L 31.5 L Urine Opiates Screen NEGATIVE - Discharge information/Instructions Discharge Activity: Balance Activity w/Rest, Pelvic Rest Discharge Diet: Regular Disposition: HOME, SELF-CARE Follow up with: [facility] in: 3, Weeks
[2018-07-18] MEDS: PRENATAL VITAMIN W DHA CAPSULE PO SCH (10:45)
[2018-07-18] MEDS: FAMOTIDINE 20 MG TABLET PO SCH (10:45)
[2018-07-18] MEDS: FERROUS SULFATE 325 MG TABLET PO SCH ×2 (10:45→18:18)
[2018-07-18] MEDS: DOCUSATE SODIUM 100 MG CAPSULE PO SCH ×2 (10:45→18:18)
[2018-07-18] MEDS: SENNOSIDES/DOCUSATE 8.6-50 MG 1 EACH TABLET PO SCH (10:45)
--- NOTE | 2018-07-18 11:23 | PDOC PROGRESS REPORT ---
Subjective-OB Progress Note for:: 07/18/18 Subjective: Pt doing well, no concerns. She reports light bleeding, reg diet, and is ambulatory. Physical Exam (OB) Vital Signs: Temp Pulse Resp BP Pulse Ox 98.3 F 55 L 16 120/68 98 07/17/18 19:35 07/17/18 19:35 07/17/18 19:35 07/17/18 19:35 07/17/18 19:35 Intake & Output 07/17/18 07/18/18 07/19/18 06:59 06:59 06:59 Intake Total 1000 1000 Output Total 0 Balance 1000 1000 Weight 90.5 kg - PIH/Pre-Eclampsia DTR's: 2 + Clonus: Negative Headache: Absent Epigastric Pain: No Visual Changes: No - Lochia Lochia Amount: Scant < 10 ml Lochia Color: Rubra/Red - Abdomen Description: Soft Hernia Present: No Fundal Description: Firm, Midline Fundal Height: u/u - u/2 Objective-Diagnostic Laboratory: 07/18/18 07:18 07/18/18 07:18 WBC 10.4 RBC 3.37 L Hgb 11.3 L Hct 31.5 L MCV 94 MCH 33.4 MCHC 35.7 RDW 12.9 Plt Count 136 L Assessment and Plan(PN) - Assessment and Plan (1) Delivery normal Is this a current diagnosis for this admission?: Yes (2) Late onset care Is this a current diagnosis for this admission?: Yes (3) Smoker Is this a current diagnosis for this admission?: Yes - Time Spent with Patient Time with patient: Less than 15 minutes Medications reviewed and adjusted accordingly: Yes - Disposition Anticipated Discharge: Home Within: within 24 hours
[2018-07-19] MEDS: IBUPROFEN 800 MG TABLET PO SCH ×2 (06:28→10:21)
[2018-07-19 08:28] VITALS: BP 118/70
[2018-07-19] MEDS: FAMOTIDINE 20 MG TABLET PO SCH ×2 (10:21→10:55)
--- NOTE | 2018-07-19 10:41 | PDOC PROGRESS REPORT ---
Subjective-OB Progress Note for:: 07/19/18 Subjective: Pt is doing well, no concerns. Ready to go home. Physical Exam (OB) Vital Signs: Temp Pulse Resp BP Pulse Ox 98.4 F 71 18 118/70 98 07/19/18 09:47 07/19/18 09:47 07/19/18 09:47 07/19/18 09:47 07/19/18 09:47 Intake & Output 07/18/18 07/19/18 07/20/18 06:59 06:59 06:59 Intake Total 1000 Output Total 0 Balance 1000 - Lochia Lochia Amount: Scant < 10 ml Lochia Color: Rubra/Red - Abdomen Description: Tender, Soft Hernia Present: No Fundal Description: Firm, Midline Fundal Height: u/u - u/2 Objective-Diagnostic Laboratory: 07/18/18 07:18 Assessment and Plan(PN) - Assessment and Plan (1) Delivery normal Is this a current diagnosis for this admission?: Yes (2) Late onset care Is this a current diagnosis for this admission?: Yes (3) Smoker Is this a current diagnosis for this admission?: Yes - Time Spent with Patient Time with patient: Less than 15 minutes Medications reviewed and adjusted accordingly: Yes - Disposition Anticipated Discharge: Home
[2018-07-19] MEDS: SENNOSIDES/DOCUSATE 8.6-50 MG 1 EACH TABLET PO SCH (10:55)
[2018-07-19] MEDS: BENZOCAINE/MENTHOL AEROSOL SPRAY 56 ML TOP PRN (10:55)
[2018-07-19] MEDS: PRENATAL VITAMIN W DHA CAPSULE PO SCH (10:55)
[2018-07-19] MEDS: FERROUS SULFATE 325 MG TABLET PO SCH (10:55)
[2018-07-19] MEDS: DOCUSATE SODIUM 100 MG CAPSULE PO SCH (10:56)
== END 2018-07-19 13:42 | disposition home or self-care (01) | DRG 807 ==
LOC: LC 21:43 → LR 07-17 00:14 → EEVIPCON 07-17 00:14 → 2S 07-17 04:52
PROVIDERS: ADMIT Student in an Organized Health Care Education/Training Program; ATTEND Student in an Organized Health Care Education/Training Program
PROC: 10E0XZZ Delivery of Products of Conception, External Approach (ICD-10-PCS; principal; 2018-07-17)
PROC: 0UQMXZZ Repair Vulva, External Approach (ICD-10-PCS; 2018-07-17)
PROC: 10907ZC Drainage of Amniotic Fluid, Therapeutic from Products of Conception, Via Natural or Artificial Opening (ICD-10-PCS; 2018-07-17)
PROC: 4A1HXCZ Monitoring of Products of Conception, Cardiac Rate, External Approach (ICD-10-PCS; 2018-07-17)
DX: O69.1XX0 Labor and delivery complicated by cord around neck, with compression, not applicable or unspecified (principal); O99.344 Other mental disorders complicating childbirth; O70.0 First degree perineal laceration during delivery; O99.334 Smoking (tobacco) complicating childbirth; F17.219 Nicotine dependence, cigarettes, with unspecified nicotine-induced disorders; F31.9 Bipolar disorder, unspecified; F90.9 Attention-deficit hyperactivity disorder, unspecified type; O62.3 Precipitate labor; Z28.21 Immunization not carried out because of patient refusal; Z91.040 Latex allergy status; Z3A.40 40 weeks gestation of pregnancy; Z37.0 Single live birth
CPT/HCPCS: 36415; 80307; 81005; 85025; 85027; 86592; 86850; 86900; 86901; 94760; J2590; J3010; J3490

== ENCOUNTER 2018-10-09 09:45 | Emergency (ER) | payer MEDICAID ==
[2018-10-09 09:52] VITALS: BP 129/74
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
== END 2018-10-09 11:55 | disposition home or self-care (01) ==
LOC: ER 09:45
DX: R07.81 Pleurodynia (principal); W01.190A Fall on same level from slipping, tripping and stumbling with subsequent striking against furniture, initial encounter; Y93.89 Activity, other specified; Z87.81 Personal history of (healed) traumatic fracture; F17.210 Nicotine dependence, cigarettes, uncomplicated
CPT/HCPCS: 99283

== ENCOUNTER → 2018-10-24 | Outpatient (CLI) | payer MEDICAID ==
--- NOTE | 2018-10-24 13:59 | RADIOLOGY REPORT (SQ) ---
EXAM DESCRIPTION: RIBS RIGHT W/PA CHEST COMPLETED DATE/TIME: 10/24/2018 1:03 pm REASON FOR STUDY: S29.9XXD UNSPECIFIED INJURY OF THORAX, SUBSEQUENT ENCOUNTER S29.9XXD UNSPECIFIED INJURY OF THORAX, SUBSEQUENT ENCOUNTER COMPARISON: 10/09/2018. TECHNIQUE: Frontal view of the chest and additional views of the right ribs acquired. NUMBER OF VIEWS: Five view. LIMITATIONS: None. FINDINGS: FRONTAL CXR: No pneumothorax. No pleural effusion. No atelectasis or infiltrates. RIBS: No displaced rib fractures. No lytic or blastic bony lesions. OTHER: No other significant finding. IMPRESSION: NO PNEUMOTHORAX. NO DISPLACED RIB FRACTURES. COMMENT: SITE OF TRAUMA/COMPLAINT MARKED/STAMP COMPLETED: YES. TECHNICAL DOCUMENTATION: JOB ID: [id number] [employer]- All Rights Reserved Reading location - IP/workstation name: [email or web address]
== END ==
LOC: RAD 12:22
PROVIDERS: ATTEND Family Medicine
DX: S29.9XXD Unspecified injury of thorax, subsequent encounter (principal); X58.XXXD Exposure to other specified factors, subsequent encounter

== ENCOUNTER 2019-05-09 22:47 | Emergency (ER) | payer SELFPAY ==
[2019-05-10] VITALS: BP 118/74
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
[2019-05-10] MEDS ORDERED: IBUPROFEN 600 MG TABLET PO ONE (02:48)
--- NOTE | 2019-05-10 02:51 | ER Document Report ---
HPI - HPI Time Seen by Provider: 05/10/19 00:53 Pain Level: 5 Notes: Patient is an otherwise healthy 28-year-old female presenting with left ankle pain. Patient reports she twisted her ankle while walking out to her vehicle. She reports pain is increased with ambulation. - CONSTITUTIONAL Constitutional: DENIES: Fever, Chills - EENT EENT: DENIES: Sore Throat, Ear Pain, Eye problems - NEURO Neurology: DENIES: Headache, Weakness, Vision blurred, Dizzinesss / Vertigo - CARDIOVASCULAR Cardiovascular: DENIES: Chest pain - RESPIRATORY Respiratory: DENIES: Trouble Breathing, Coughing - GASTROINTESTINAL Gastrointestinal: DENIES: Abdominal Pain, Black / Bloody Stools - URINARY Urinary: DENIES: Dysuria, Urgency, Frequency - REPRODUCTIVE Reproductive: DENIES: : - MUSCULOSKELETAL Musculoskeletal: REPORTS: Extremity pain - l ankle Past Medical History - General Information source: Patient - Social History Smoking Status: Current Every Day Smoker Frequency of alcohol use: None Drug Abuse: None Family History: Arthritis - RA mother and son, COPD, DM, Hypertension, Malignancy, Thyroid Disfunction Patient has suicidal ideation: No Patient has homicidal ideation: No - Past Medical History Cardiac Medical History: Denies: Hx Coronary Artery Disease, Hx Hypertension Pulmonary Medical History: Denies: Hx Asthma Endocrine Medical History: Denies: Hx Diabetes Mellitus Type 1, Hx Diabetes Mellitus Type 2 Renal/ Medical History: Denies: Hx Peritoneal Dialysis Musculoskeletal Medical History: Reports Hx Musculoskeletal Deformity Psychiatric Medical History: Reports: Hx Anxiety, Hx Attention Deficit Hyperactivity Disorder, Hx Bipolar Disorder, Hx Borderline Personality Disorder, Hx Depression, Hx Schizophrenia Surgical Hx: Negative - Immunizations Immunizations up to date: Yes Hx Diphtheria, Pertussis, Tetanus Vaccination: Yes Vertical Provider Document - CONSTITUTIONAL Notes: PHYSICAL EXAMINATION: GENERAL: Well-appearing, well-nourished and in no acute distress. HEAD: Atraumatic, normocephalic. EYES: Pupils equal round extraocular movements intact, conjunctiva are normal. ENT: Nares patent NECK: Normal range of motion LUNGS: No respiratory distress Musculoskeletal: Normal range of motion to left ankle, swelling and ecchymosis noted to left ankle specifically on the lateral aspect, cap refill less than 3 seconds, strong dorsalis pedis pulse. NEUROLOGICAL: Normal speech. PSYCH: Normal mood, normal affect. SKIN: Warm, Dry, normal turgor, no rashes or lesions noted. - INFECTION CONTROL TRAVEL OUTSIDE OF THE [place] IN LAST 30 DAYS: No Course - Re-evaluation Re-evalutation: Ankle X-Ray 05/10/19 00:57 IMPRESSION: Soft tissue swelling with no acute bony abnormality. X-ray negative for any acute fracture or dislocation. Patient will be placed in an Galileo wrap and offered crutches. Patient will be discharged home in stable condition. Discussed ED return precautions. - Vital Signs Vital signs: Temp Pulse Resp BP Pulse Ox 98.4 F 57 L 16 118/74 99 05/09/19 23:53 05/09/19 23:53 05/09/19 23:53 05/09/19 23:53 05/09/19 23:53 Procedures - Immobilization Left ankle Pre-Proc Neuro Vasc Exam: Normal Immobilizer type: Galileo wrap, Crutches Performed by: PCT Post-Proc Neuro Vasc Exam: Normal Discharge - Discharge Clinical Impression: Left ankle sprain Qualifiers: Encounter type: initial encounter Involved ligament of ankle: unspecified ligament Qualified Code(s): S93.402A - Sprain of unspecified ligament of left ankle, initial encounter Condition: Stable Disposition: HOME, SELF-CARE Additional Instructions: SPRAINED ANKLE: Your sprained ankle results from stretching or tearing of the ligaments which support the ankle. This usually results from twisting the foot inward and under. The ligaments will require time and protection in order to heal properly. Many ankle sprains are quite disabling, and should be taken seriously. The usual treatment for an ankle sprain is cold packs; protection with tape, splints, or wraps; elevation; and staying off the ankle for at least a day. As the ankle improves, you can walk IF it's not painful to bear weight. Sports are best postponed until healing is complete. More serious sprains usually require strengthening exercises after early healing. Your physician has assessed the seriousness of the ligament injury to your ankle. However, the treatment may change, depending on how your ankle progresses. If further exams were recommended, it is important that you follow through. Call the doctor if your foot becomes numb, painful, or severely swollen. ANKLE STIRRUP SPLINT: You are to use an ankle brace called a stirrup splint. This type of brace allows you to place greater stresses on the ankle without risk of re-injury, and is often used for more severe ankle injuries such as avulsion fractures and ligament ruptures. The splint can be worn over a sock or tape. For proper support, wear the splint with a shoe over it. It's important that the splint fit properly. Adjust the heel tension, if needed. If your splint has air bladders, peel back the bottom of each air bladder, then move the Velcro attachment of the heel strap up or down. Air bladder pressure can be adjusted by pulling up the valve at the top, threading the air tube down into the main bladder, then blowing air into the bladder or squeezing it out. The two sides of the stirrup can be moved forward or back on your ankle by changing the attachment of the main straps. If you are unable to use the ankle comfortably in the splint, return for re-evaluation. USE OF CRUTCHES: The doctor has recommended that you not bear weight at this time. You will need to use crutches. Adjust the crutches so the tops come to about two inches under the armpit while you are standing upright. Use your hands -- not your armpits -- to support your weight. To get into a chair, support yourself with one crutch on the injured side. Hold the chair with the other hand, then lower yourself while putting all your weight on the good leg. Going up stairs is `good leg up, step up, then bring up crutches and bad leg.' Down stairs is `bad leg and crutches down, then bring good leg down.' If you develop numbness or swelling in an arm or hand, you are using the crutches incorrectly. Return if you are having any problems with the crutches. ICE & ELEVATION: Apply ice packs frequently against the painful area. Many different schedules are recommended, such as "20 minutes on, 20 minutes off" or "one hour ice, two hours rest." If you need to work, you may need to go longer between ice treatments. You should plan to have the area ice packed AT LEAST one-fourth of the time. The ice should be applied over the wrap, tape, or splint, or over a layer of cloth -- not directly against the skin. Some ice bags have a built-in cloth and can be put directly on the skin. Your injured part should be elevated as much as possible over the next 48 hours. Try to keep the injury above the level of the heart. Avoid use of the injured area. Elevation and rest will decrease the swelling. USE OF [id number] IBUPROFEN: Ibuprofen (Advil, Nuprin, Medipren, Motrin IB) is a medication for fever and pain control. In addition, it has anti- inflammatory effects which may be beneficial, especially in the treatment of injuries. It's best to take ibuprofen with food. Persons with ulcer disease or allergy to aspirin should notify their physician of this before taking ibuprofen. Ibuprofen can be given every four to six hours, for a total of four doses daily. Age Pain or fever dose Antiinflammatory dose 6-8 yr 200 mg (1 tab) 200 mg (1 tab) 9-11 yr 200 mg (1 tab) 200-400 mg (1-2 tab) 11-14 yr 200-400 mg (1-2 tab) 400 mg (2 tab) 15-adult 400 mg (2 tab) 600 mg (3 tab) FOLLOW-UP CARE: If you have been referred to a physician for follow-up care, call the physicians office for an appointment as you were instructed or within the next two days. If you experience worsening or a significant change in your symptoms, notify the physician immediately or return to the Emergency Department at any time for re-evaluation. The x-rays taken of her ankle are negative for any fracture dislocation. Please follow the above instructions regarding care of your sprained ankle. Follow-up with your primary care provider in the next 7 to 10 days for follow- up. Be sure to take the ibuprofen 600 mg every 6 hours as outlined above. This will help with normally pain but inflammation. Referrals: THIERNO LEE MD [Primary Care Provider] - Follow up as needed
== END 2019-05-10 03:19 | disposition home or self-care (01) ==
LOC: ER 22:47
DX: S93.402A Sprain of unspecified ligament of left ankle, initial encounter (principal); M25.572 Pain in left ankle and joints of left foot; X50.0XXA Overexertion from strenuous movement or load, initial encounter; Y93.89 Activity, other specified; F17.200 Nicotine dependence, unspecified, uncomplicated
CPT/HCPCS: 99283; 73610; L1902